=== PATIENT | female | born 1955 | race American Indian/Alaskan Native ===

== ENCOUNTER 2018-12-17 06:52 | Inpatient (IN) | payer MEDICAID, OTHER ==
[2018-12-17] MEDS ORDERED: MORPHINE IV ONE (07:31)
[2018-12-17] MEDS ORDERED: ZOFRAN IV ONE (07:31)
--- NOTE | 2018-12-17 07:33 | Emergency Department Report ---
HPI - General Chief Complaint: Extremity Injury, Lower Time Seen by Provider: 12/17/18 07:27 - HPI HPI: 63-year-old -[place]ish female presents to the emergency department via EMS from home with a complaint of left hip pain with concern for a fracture versus a dislocation. The patient says that she had a ground-level fall this morning when her leg just "gave out on me." She denies hitting her head or any loss of consciousness. She was given some fentanyl in route with EMS with only temporary relief. She has a past medical history of hypertension and arthritis. She says that she went to the [facility] yesterday for some chronic arthr itis joint pain. She does not use any type of walker, cane, or assistance for ambulation. ED Past Medical Hx - Past Medical History Previous Medical History?: Yes Hx Hypertension: Yes - Surgical History Past Surgical History?: No - Social History Smoking Status: Never Smoker Substance Use Type: None - Medications Home Medications: Home Medications Medication Instructions Recorded Confirmed Last Taken Type No Known Home Medications [No 12/17/18 12/17/18 Unknown History Reported Home Medications] ED Review of Systems ROS: Stated complaint: DISLOCATED HIP Other details as noted in HPI Comment: All other systems reviewed and negative Constitutional: denies: chills, fever Eyes: denies: eye pain, vision change ENT: denies: ear pain, throat pain Respiratory: denies: cough, shortness of breath Cardiovascular: denies: chest pain, palpitations Gastrointestinal: denies: abdominal pain, vomiting Genitourinary: denies: dysuria, discharge Musculoskeletal: arthralgia. denies: back pain Skin: denies: rash, lesions Neurological: denies: headache, weakness Physical Exam - Physical Exam Vital Signs: Vital Signs 12/17/18 07:11 Temperature 98.5 F Pulse Rate 124 H Respiratory 18 Rate Blood Pressure 162/106 O2 Sat by Pulse 100 Oximetry Physical Exam: GENERAL: The patient is well-developed well-nourished. HEENT: Normocephalic. Atraumatic. Patient has moist mucous membranes. EYES: Extraocular motions are intact. NECK: Supple. Trachea is midline. CHEST/LUNGS: Clear to auscultation. There is no respiratory distress noted. HEART/CARDIOVASCULAR: Regular. There is mild to moderate tachycardia. There is no obvious murmur. ABDOMEN: Abdomen is soft, nontender. Patient has normal bowel sounds. There is no abdominal distention. SKIN: Skin is warm and dry. NEURO: The patient is awake, alert, and oriented. The patient is cooperative. The patient has no focal neurologic deficits. The patient has normal speech. MUSCULOSKELETAL: There is tenderness to the bilateral hips. Both lower extremities are internally rotated. There is decreased range of motion of the bilateral lower extremities secondary to pain. ED Course Vital Signs 12/17/18 07:11 Temperature 98.5 F Pulse Rate 124 H Respiratory 18 Rate Blood Pressure 162/106 O2 Sat by Pulse 100 Oximetry - Consultations Consultation #1: 12/17/18 13:05 I spoke with the orthopedist director of early childhood education, Dr. Bautista, who is aware of the consult and will take the patient to the operating room tomorrow for fixation. ED Medical Decision Making - Lab Data Result diagrams: 12/17/18 08:19 12/17/18 08:19 - Radiology Data Radiology results: image reviewed interpreted by me: X-ray of the pelvis with bilateral hips shows a right intertrochanteric fracture and a left subtrochanteric fracture. - Medical Decision Making Patient presents after having a ground-level fall, mostly with the complaint of left hip pain. On examination she appears to have bilateral hip pain and difficulty moving the bilateral lower extremities secondary to pain. X-ray shows bilateral hip fractures. Orthopedist is aware of the consultation and will take the patient for fixation tomorrow. Some preop labs were obtained that show significant anemia and hypokalemia. The patient has been accepted for admission by the hospitalist service. - Differential Diagnosis hip fracture, dislocation, contusion Critical Care Time: No Critical care attestation.: If time is entered above; I have spent that time in minutes in the direct care of this critically ill patient, excluding procedure time. ED Disposition Clinical Impression: Anemia, Hypokalemia Closed bilateral fractures of hip Qualifiers: Encounter type: initial encounter Qualified Code(s): S72.001A - Fracture of unspecified part of neck of right femur, initial encounter for closed fracture Intertrochanteric fracture of right femur Qualifiers: Encounter type: initial encounter Fracture type: closed Fracture alignment: displaced Qualified Code(s): S72.141A - Displaced intertrochanteric fracture of right femur, initial encounter for closed fracture Closed left subtrochanteric femur fracture Qualifiers: Encounter type: initial encounter Fracture alignment: displaced Qualified Code(s): S72.22XA - Displaced subtrochanteric fracture of left femur, initial encounter for closed fracture Disposition: [id number] OP ADMIT IP TO THIS HOSP Is pt being admited?: Yes Condition: Fair Time of Disposition: 08:23
[2018-12-17] MEDS ORDERED: NACL 0.9% 1000 ML 1,000 ML IV ONE (08:16)
[2018-12-17] MEDS ORDERED: DILAUDID IV ONE (08:28)
--- NOTE | 2018-12-17 08:35 | XRay Report ---
LEFT HIP, 2 views: History: Fall, hip fracture versus dislocation No comparison. Bilateral proximal femur fractures are identified. On the left side, the fracture is just below the trochanters. There is severe lateral angulation measuring up to 76 degrees. I question if there is an underlying lytic lesion in the proximal left femur at the fracture site making this a pathologic fracture. On the right side, the fracture appears to involve the lesser trochanter. There is 2.5 cm lateral displacement of the distal right femur at the fracture site. The bilateral femoral heads are well-seated within their respective acetabula. No pelvic fracture is visualized. IMPRESSION: Bilateral proximal femur fractures as described.
[2018-12-17 08:41] LABS: Basophils % (Auto) 0.2 % (0.0-1.8); Eosinophils % (Auto) 0.1 % (0.0-4.3); Hematocrit 23.1 % (30.3-42.9); Hemoglobin 7.2 gm/dl (10.1-14.3); Lymphocytes # (Auto) 0.8 K/mm3 (1.2-5.4); Lymphocytes % (Auto) 5.6 % (13.4-35.0); Mean Corpuscular HGB Conc 31 % (30-34); Mean Corpuscular Volume 66 fl (79-97); Monocytes % (Auto) 6.7 % (0.0-7.3); Platelet Count 356 K/mm3 (140-440); Red Blood Count 3.49 M/mm3 (3.65-5.03); Red Cell Distribution Width 21.4 % (13.2-15.2)
[2018-12-17 08:51] LABS: Partial Thromboplastin Time 28.6 Sec. (24.2-36.6)
[2018-12-17 09:00] LABS: BUN/Creatinine Ratio 23; Blood Urea Nitrogen 7 mg/dL (7-17); Calcium 8.5 mg/dL (8.4-10.2); Hemolysis Index 0
[2018-12-17] MEDS ORDERED: K-DUR PO ONE (09:26)
[2018-12-17] MEDS ORDERED: POTASSIUM CHLORIDE FEEDTUBE ONE (10:00)
[2018-12-17] MEDS: LOPRESSOR PO SCH ×2 (10:15→22:50)
[2018-12-17] MEDS: KCL 10MEQ/100ML 10 MEQ/100 ML BAG IV SCH ×3 (10:26→17:41)
[2018-12-17 10:46] LABS: Iron 12 ug/dL (37-170); Total Iron Binding Capacity 223 mcg/dL (250-450)
[2018-12-17] MEDS ORDERED: NACL 0.9% 500 ML 500 ML IV SCH (11:48)
[2018-12-17] MEDS ORDERED: ZOFRAN IV PRN (12:10)
[2018-12-17] MEDS ORDERED: PROVENTIL IH PRN (12:10)
[2018-12-17] MEDS ORDERED: SODIUM CHLORIDE FLUSH SYRINGE 10 ML IV PRN (12:10)
--- NOTE | 2018-12-17 12:10 | History and Physical Report ---
History of Present Illness Date of examination: 12/17/18 Date of admission: 12/17/18 09:54 Chief complaint: Fall History of present illness: Patient is 63 yo with history of hypertension, anemia, arthritis. She presented because of hip pain after fall. Patient says she was walking on level floor, slipped and fell and now c/o hip pain. She stated her legs gave out. X ray shows bilateral femur fractures. She denies chest pain or shortness of breath or dizziness. Will admit to Surgical floor. Past History Past Medical History: anemia, hypertension Past Surgical History: No surgical history Social history: lives with family, full code. denies: smoking, alcohol abuse Family history: diabetes Medications and Allergies Allergies Allergy/AdvReac Type Severity Reaction Status Date / Time No Known Allergies Allergy Unverified 12/17/18 07:15 Home Medications Medication Instructions Recorded Confirmed Last Taken Type No Known Home Medications [No 12/17/18 12/17/18 Unknown History Reported Home Medications] Active Meds: Active Medications Potassium Chloride (Kcl 10meq/100ml) 10 meq in 100 mls @ 100 mls/hr IV Q1H DANIELLE Stop: 12/17/18 12:59 Last Admin: 12/17/18 10:26 Dose: 100 mls/hr Documented by: Sodium Chloride (Nacl 0.9% 500 Ml) 500 mls @ 0 mls/hr IV ONCE DANIELLE Stop: 12/17/18 23:00 Metoprolol Tartrate (Lopressor) 25 mg PO BID DANIELLE Last Admin: 12/17/18 10:15 Dose: 25 mg Documented by: Exam - Physical Exam Narrative exam: Gen: Not in acute distress, malnourished HEENT: Normocephalic, atraumatic Neck;supple, no JVD Heart: S1 and S2 reg, no murmurs, rubs or gallop Lungs: Clear, no crackles Abd: soft, non tender, non distended, normal BS Ext: Tender both hips, no cyanosis, Neuro: AAO x 3, no focal signs, moves all ext Psych:Normal mood - Constitutional Vitals: Temp Pulse Resp BP Pulse Ox 98.5 F 137 H 15 150/99 96 12/17/18 07:11 12/17/18 12:04 12/17/18 11:00 12/17/18 12:04 12/17/18 12:04 Results - Labs CBC & Chem 7: 12/17/18 08:19 12/17/18 08:19 Labs: Abnormal lab results 12/17/18 12/17/18 12/17/18 Range/Units 08:19 08:19 09:58 WBC 14.8 H (4.5-11.0) K/mm3 RBC 3.49 L (3.65-5.03) M/mm3 Hgb 7.2 L (10.1-14.3) gm/dl Hct 23.1 L (30.3-42.9) % MCV 66 L (79-97) fl MCH 21 L (28-32) pg RDW 21.4 H (13.2-15.2) % Lymph % (Auto) 5.6 L (13.4-35.0) % Lymph # 0.8 L (1.2-5.4) K/mm3 [facility] # 1.0 H (0.0-0.8) K/mm3 Seg Neutrophils % 87.4 H (40.0-70.0) % Seg Neutrophils # 12.9 H (1.8-7.7) K/mm3 Potassium 2.5 L* (3.6-5.0) mmol/L Creatinine 0.3 L (0.7-1.2) mg/dL Glucose 105 H (65-100) mg/dL Iron 12 L (37-170) ug/dL TIBC 223 L (250-450) mcg/dL Assessment and Plan Bilateral femoral neck fractures Admit to surgical Floor Consult Orthopedic surgeon for surgery Hypertension Monitor BP Chronic osteoarthritis Hypokalemia Replace and recheck in am Anemia. She mentions chronic anemia Obtain Fe, TIBC,Ferritin levels Transfuse 1 unit PRBC Full code status.
[2018-12-17] MEDS ORDERED: MORPHINE IV PRN (13:18)
[2018-12-17] MEDS: NORVASC PO SCH (14:55)
--- NOTE | 2018-12-17 22:47 | Consultation ---
History of Present Illness - [facility] Consult date: 12/17/18 Consult reason: fracture History of present illness: 63 y/o female with c/o bilateral hip pain, states she only fell once but began having pain in left hip a few days prior to fall...Seen in the ED at [facility] where xrays taken show pathologic fx left hip and displaced right intertroch fracture... Past History Past Medical History: anemia, hypertension Past Surgical History: No surgical history Social history: lives with family, full code. denies: smoking, alcohol abuse Family history: diabetes Medications and Allergies Allergies Allergy/AdvReac Type Severity Reaction Status Date / Time No Known Allergies Allergy Unverified 12/17/18 07:15 Home Medications Medication Instructions Recorded Confirmed Last Taken Type No Known Home Medications [No 12/17/18 12/17/18 Unknown History Reported Home Medications] Active Meds: Active Medications Acetaminophen (Tylenol) 650 mg PO Q4H PRN PRN Reason: Pain MILD(1-3)/Fever >100.5/WHITAKER Albuterol (Proventil) 2.5 mg IH Q4HRT PRN PRN Reason: Shortness Of Breath Amlodipine Besylate (Norvasc) 5 mg PO QDAY [facility] Last Admin: 12/17/18 14:55 Dose: 5 mg Documented by: Sodium Chloride (Nacl 0.9% 500 Ml) 500 mls @ 0 mls/hr IV ONCE [facility] Stop: 12/17/18 23:00 Last Admin: 12/17/18 12:44 Dose: 40 mls/hr Documented by: Metoprolol Tartrate (Lopressor) 25 mg PO BID [facility] Last Admin: 12/17/18 10:15 Dose: 25 mg Documented by: Morphine Sulfate (Morphine) 2 mg IV Q4H PRN PRN Reason: Pain, Moderate (4-6) Morphine Sulfate (Morphine) 4 mg IV Q4H PRN PRN Reason: Pain , Severe (7-10) Last Admin: 12/17/18 14:55 Dose: 4 mg Documented by: Ondansetron HCl (Zofran) 4 mg IV Q8H PRN PRN Reason: Nausea And Vomiting Sodium Chloride (Sodium Chloride Flush Syringe 10 Ml) 10 ml IV BID [facility] Sodium Chloride (Sodium Chloride Flush Syringe 10 Ml) 10 ml IV PRN PRN PRN Reason: LINE FLUSH Physical Examination - Physical exam Narrative exam: Bilateral LE's - +deformity with shortening, skin intact, compartments soft, distal n/v intact Eyes: PERRL ENT: Positive: clear oral mucosa Respiratory effort: normal Respiratory: bilateral: CTA Rhythm: regular Heart Sounds: Positive: S1 & S2 General gastrointestinal: Positive: soft, non-tender, non-distended, normal bowel sounds Integumentary: clear, warm, dry Neurologic: Positive: CNII-XII intact, moves all extremities, gait normal. Negative: focal deficits Assessment and Plan Bilateral intertrochanteric hip fractures with a pathologic fracture involving the left proximal femur Recommendations patient patient will require operative fixation of fractures utilizing intramedullary rods
[2018-12-18] MEDS: TYLENOL PO PRN (01:00)
[2018-12-18] MEDS: MORPHINE IV PRN (01:01)
[2018-12-18] MEDS: SODIUM CHLORIDE FLUSH SYRINGE 10 ML IV SCH ×3 (01:04→21:41)
[2018-12-18] MEDS ORDERED: MARCAINE 0.5% INFILTRATI ONE (07:38)
[2018-12-18] MEDS ORDERED: NACL P/F VIAL (10 ML) 10 ML ONE (07:38)
[2018-12-18] MEDS ORDERED: TORADOL ONE (07:38)
[2018-12-18] MEDS ORDERED: MORPHINE ONE (07:38)
[2018-12-18] MEDS ORDERED: NACL 0.9% 0 ML ONE (08:25)
[2018-12-18] MEDS ORDERED: NACL 0.9% 50 ML ONE (08:25)
[2018-12-18 08:27] LABS: Basophils % (Auto) 0.3 % (0.0-1.8); Eosinophils % (Auto) 0.1 % (0.0-4.3); Hematocrit 29.1 % (30.3-42.9); Hemoglobin 9.3 gm/dl (10.1-14.3); Lymphocytes # (Auto) 1.9 K/mm3 (1.2-5.4); Lymphocytes % (Auto) 10.7 % (13.4-35.0); Mean Corpuscular HGB Conc 32 % (30-34); Mean Corpuscular Volume 72 fl (79-97); Monocytes # (Auto) 1.7 K/mm3 (0.0-0.8); Monocytes % (Auto) 9.6 % (0.0-7.3); Platelet Count 382 K/mm3 (140-440); Red Blood Count 4.07 M/mm3 (3.65-5.03)
[2018-12-18 08:47] LABS: BUN/Creatinine Ratio 25; Blood Urea Nitrogen 10 mg/dL (7-17); Calcium 7.9 mg/dL (8.4-10.2); Hemolysis Index 19
[2018-12-18] MEDS ORDERED: PEPCID IV ONE (09:32)
--- NOTE | 2018-12-18 09:33 | Anesthesia Day of Surgery ---
Anesthesia Day of Surgery - Day of Surgery Patient Examined: Yes Patient H&P Reviewed: Yes Patient is NPO: Yes
--- NOTE | 2018-12-18 09:33 | Anesthesia Consultation ---
Anesthesia Consult and Med Hx Date of service: 12/18/18 - Airway Anesthetic Teeth Evaluation: Good ROM Head & Neck: Adequate Mental/Hyoid Distance: Adequate Mallampati Class: Class II Intubation Access Assessment: Good - Pulmonary Exam CTA: Yes - Cardiac Exam Cardiac Exam: No Murmur - Pre-Operative Health Status ASA Pre-Surgery Classification: ASA2 Proposed Anesthetic Plan: Epidural - Cardiovascular System Hx Hypertension: Yes
[2018-12-18] MEDS: LACTATED RINGERS 1,000 ML IV SCH ×2 (09:44→20:38)
[2018-12-18] MEDS ORDERED: ANCEF/STERILE WATER 2 GM/20 ML 2 GM/20 ML SYRINGE IV ONE (09:53)
--- NOTE | 2018-12-18 09:53 | XRay Report ---
METASTATIC BONE SURVEY History: Pathologic fracture of left femur Findings: Correlation is made with the left hip films dated 12/17/18. Multiple additional views of the axial skeleton and proximal appendicular skeleton were obtained. No calvarial lesions are identified. There is moderate scoliosis and degenerative changes throughout the spine but no suspicious bony lesions are appreciated. No rib lesions, humeral lesions or distal femoral lesions are identified. Fractures of the bilateral proximal femurs are again identified. Questionable lytic or permeative lesion in the proximal left femur is again noted. I suppose this could also represent demineralization is this fracture were subacute to chronic in nature. Please correlate with the patient's history. Impression: No additional suspicious bony lesions are identified throughout the axial and proximal appendicular skeleton. Questionable lytic or permeative lesion in the proximal left femur versus demineralization.
[2018-12-18] MEDS ORDERED: SUBLIMAZE IV SCH (11:00)
[2018-12-18] MEDS ORDERED: PEPCID IV NR (11:00)
[2018-12-18] MEDS ORDERED: ANCEF/STERILE WATER 2 GM/20 ML IV NR (11:00)
[2018-12-18] MEDS ORDERED: ASTRAMORPH PF 10MG/10ML ONE (11:42)
[2018-12-18] MEDS ORDERED: METHYLENE BLUE ONE (11:59)
[2018-12-18] MEDS ORDERED: WATER FOR IRRIG STERILE IR ONE (13:20)
[2018-12-18] MEDS ORDERED: NACL 0.9% IR ONE (13:20)
[2018-12-18] MEDS ORDERED: DIPRIVAN 10 MG/ML IV ONE ×2 (13:41)
[2018-12-18] MEDS ORDERED: VERSED ONE (13:59)
[2018-12-18] MEDS ORDERED: NACL 0.9% 100 ML ONE (14:01)
[2018-12-18] MEDS ORDERED: NEO SYNEPHRINE ONE (14:01)
[2018-12-18] MEDS ORDERED: NACL 0.9% 1000 ML 1,000 ML ONE (14:11)
[2018-12-18] MEDS ORDERED: NEO SYNEPHRINE/NS Syringe(OR USE) IV ONE (14:26)
[2018-12-18] MEDS: LOPRESSOR PO SCH ×3 (15:04→21:39)
[2018-12-18] MEDS: NORVASC PO SCH (15:04)
[2018-12-18] MEDS ORDERED: SUBLIMAZE IV PRN (15:21)
--- NOTE | 2018-12-18 15:41 | Procedure Note ---
Date of procedure: 12/18/18 Pre-op diagnosis: displaced bilateral intertrochanteric hip fractures Post-op diagnosis: same Procedure: Closed reduction insertion of intramedullary nail bilateral hip and femorii Procedure The patient was brought to the OR on the hospital bed following induction of spinal anesthesia the patient was transferred to the [place] table both lower extremities were placed in longitudinal traction care was taken to protect bony areas the right hip was prepped and draped in the usual sterile fashion a timeout procedure was done to identify the patient and the correct operative sites.Following closed reduction and manipulation of the fracture fragments a incision was placed over the superior posterior aspect of the right hip this is taken down sharply through skin and subcutaneous using blunt dissection along with Palmer elevator the soft tissues were stripped from the superior portion of the greater trochanter. Using the awl the entry point on the proximal femur was located using C-arm fluoroscopy next a threaded guidepin was inserted this was followed by subsequent reaming drilling and reaming measuring the length of the IM nail A3 20 length by 11 mm yaniv was selected The intramedullary nail was loaded onto the travograph operator and was then placed down the medullary canal again under C-arm direction a subsequent secondary stab wound was made over the proximal femur and the helical blade travograph operator was placed again care was taken to maintain the guidepin down the center of the humeral extremity femoral head on AP and lateral views a 90 mm length helical blade was selected this was inserted again under C-arm direction the fracture appeared stable implants were in good position following this the incisions were irrigated and were closed and a standard routine fashion following insertion of the IM nail on the right hip the drapes were removed the left hip was then prepped and draped at this point again using C-arm fluoroscopy the fracture fragments were reduced into a more anatomic position stab wounds were made over the posterior superior portion portion of the left hip this in stab wound was then taken down through skin and subcutaneous Combination of blunt and Palmer elevators were used to gain entry into the proximal portal again a guidewire was inserted through the proximal proximal fragment into the distal and on down towards the distal portion of the intramedullary canal measuring the length a again and #3 20 x 11 mm yaniv was selected this was assembled and inserted into the left femoral shaft using the antegrade technique care was taken to obtain some of the ring digit particle debris and was this was sent to pathology for identification of a possible metastatic lesion in this area again following placement of the IM nail and the helical blade which measured again 90 90 mm the fracture site was visualized on the C-arm and again appeared to be in a anatomic position routine closure of the wound was performed the patient tolerated both procedures there were no complications she was taken to postanesthesia recovery in a stable condition Anesthesia: spinal Surgeon: EARL NIELSEN Assisted Living Manager: MAYURI JERONIMO Estimated blood loss: other (300cc) Pathology: list (bony fragments from reaming) Specimen disposition: to lab Condition: stable Disposition: PACU
[2018-12-18] MEDS ORDERED: ANCEF/NS 1 GM/50 ML 1 GM/50 ML BAG IV SCH (16:00)
[2018-12-18] MEDS ORDERED: SODIUM CHLORIDE FLUSH SYRINGE 10 ML IV NR (16:00)
--- NOTE | 2018-12-18 16:29 | Progress Note ---
Assessment and Plan Assessment and plan: Bilateral femoral neck fractures Admitted to surgical Floor For surgery today Hypertension Monitor BP Chronic osteoarthritis Hypokalemia Replaced Anemia. She mentions chronic anemia Obtain Fe, TIBC,Ferritin levels Transfused 1 unit PRBC Full code status. History Interval history: Pain on hips Bilateral hip fractures post fall Hospitalist Physical - Physical exam Narrative exam: Gen: Not in acute distress, malnourished HEENT: Normocephalic, atraumatic Neck;supple, no JVD Heart: S1 and S2 reg, no murmurs, rubs or gallop Lungs: Clear, no crackles Abd: soft, non tender, non distended, normal BS Ext: Tender both hips, no cyanosis, Neuro: AAO x 3, no focal signs, moves all ext Psych:Normal mood - Constitutional Vitals: Temp Pulse Resp BP Pulse Ox 98.9 F 122 H 18 127/99 98 12/18/18 09:10 12/18/18 09:10 12/18/18 11:02 12/18/18 09:10 12/18/18 09:10 Results - Labs CBC & Chem 7: 12/19/18 04:27 12/19/18 04:27 Labs: Laboratory Last Values WBC 17.5 K/mm3 (4.5-11.0) H 12/18/18 08:14 RBC 4.07 M/mm3 (3.65-5.03) 12/18/18 08:14 Hgb 9.3 gm/dl (10.1-14.3) L 12/18/18 08:14 Hct 29.1 % (30.3-42.9) L D 12/18/18 08:14 MCV 72 fl (79-97) L 12/18/18 08:14 MCH 23 pg (28-32) L 12/18/18 08:14 MCHC 32 % (30-34) 12/18/18 08:14 RDW 24.0 % (13.2-15.2) H 12/18/18 08:14 Plt Count 382 K/mm3 (140-440) 12/18/18 08:14 Lymph % (Auto) 10.7 % (13.4-35.0) L 12/18/18 08:14 [place] % (Auto) 9.6 % (0.0-7.3) H 12/18/18 08:14 Eos % (Auto) 0.1 % (0.0-4.3) 12/18/18 08:14 Baso % (Auto) 0.3 % (0.0-1.8) 12/18/18 08:14 Lymph # 1.9 K/mm3 (1.2-5.4) 12/18/18 08:14 [place] # 1.7 K/mm3 (0.0-0.8) H 12/18/18 08:14 Eos # 0.0 K/mm3 (0.0-0.4) 12/18/18 08:14 Baso # 0.0 K/mm3 (0.0-0.1) 12/18/18 08:14 Seg Neutrophils % 79.3 % (40.0-70.0) H 12/18/18 08:14 Seg Neutrophils # 13.9 K/mm3 (1.8-7.7) H 12/18/18 08:14 PT 13.8 Sec. (12.2-14.9) 12/17/18 08:19 INR 1.00 (0.87-1.13) 12/17/18 08:19 APTT 28.6 Sec. (24.2-36.6) 12/17/18 08:19 Sodium 138 mmol/L (137-145) 12/18/18 08:14 Potassium 3.7 mmol/L (3.6-5.0) D 12/18/18 08:14 Chloride 102.1 mmol/L (98-107) 12/18/18 08:14 Carbon Dioxide 22 mmol/L (22-30) 12/18/18 08:14 Anion Gap 18 mmol/L 12/18/18 08:14 BUN 10 mg/dL (7-17) 12/18/18 08:14 Creatinine 0.4 mg/dL (0.7-1.2) L 12/18/18 08:14 Estimated GFR > 60 ml/min 12/18/18 08:14 BUN/Creatinine Ratio 25 % 12/18/18 08:14 Glucose 99 mg/dL (65-100) 12/18/18 08:14 Calcium 7.9 mg/dL (8.4-10.2) L 12/18/18 08:14 Iron 12 ug/dL (37-170) L 12/17/18 09:58 TIBC 223 mcg/dL (250-450) L 12/17/18 09:58 Ferritin 120.8 ng/mL (13.0-400.0) 12/17/18 09:58 Vitamin B12 724.6 pg/mL (211-911) 12/17/18 09:58 Blood Type A POSITIVE 12/17/18 12:28 Antibody Screen Negative 12/17/18 12:28 Crossmatch See Detail 12/17/18 12:28 Active Medications - Current Medications Current Medications: Generic Name Dose Route Start Last Admin Trade Name Freq PRN Reason Stop Dose Admin Acetaminophen 650 mg 12/17/18 12:10 12/18/18 01:00 Tylenol PO 650 mg Q4H PRN Administration Pain MILD(1-3)/Fever >100.5/WHITAKER Acetaminophen/Hydrocodone Bitart 1 each 12/18/18 15:33 [place] 5/325 PO Q6H PRN Pain, Moderate (4-6) Albuterol 2.5 mg 12/17/18 12:10 Proventil IH Q4HRT PRN Shortness Of Breath Amlodipine Besylate 5 mg 12/17/18 14:00 12/18/18 15:04 Norvasc PO Not Given QDAY [facility] Enoxaparin Sodium 40 mg 12/19/18 10:00 Lovenox SUB-Q QDAY [facility] Fentanyl 50 mcg 12/18/18 15:21 Sublimaze IV Q5MIN PRN Pain , Severe (7-10) Lactated Ringer's 1,000 mls @ 100 mls/hr 12/18/18 10:00 12/18/18 09:44 Lactated Ringers IV 100 mls/hr DIRECT DANIELLE Administration Cefazolin Sodium 1 gm in 50 mls @ 100 mls/hr 12/18/18 16:00 Ancef/Ns 1 Gm/50 Ml IV 12/19/18 00:29 Q8H [facility] Metoprolol Tartrate 25 mg 12/17/18 10:00 12/18/18 15:04 Lopressor PO Not Given BID DANIELLE Morphine Sulfate 2 mg 12/17/18 12:10 12/18/18 01:01 Morphine IV 2 mg Q4H PRN Administration Pain, Moderate (4-6) Morphine Sulfate 4 mg 12/17/18 13:18 12/17/18 14:55 Morphine IV 4 mg Q4H PRN Administration Pain , Severe (7-10) Morphine Sulfate 4 mg 12/18/18 15:33 Morphine IV Q4H PRN Pain , Severe (7-10) Ondansetron HCl 4 mg 12/17/18 12:10 Zofran IV Q8H PRN Nausea And Vomiting Sodium Chloride 10 ml 12/17/18 22:00 12/18/18 15:04 Sodium Chloride Flush Syringe 10 Ml IV Not Given BID DANIELLE Sodium Chloride 10 ml 12/17/18 12:10 Sodium Chloride Flush Syringe 10 Ml IV PRN PRN LINE FLUSH Sodium Chloride 10 ml 12/18/18 16:00 Sodium Chloride Flush Syringe 10 Ml IV 12/19/18 15:59 PRN NR Nutrition/Malnutrition Assess - Dietary Evaluation Nutrition/Malnutrition Findings: Nutrition Notes Start: 12/18/18 11:04 Freq: Status: Active Protocol: Document 12/18/18 11:04 EB (Rec: 12/18/18 11:19 [id number]) Co-Sign 12/18/18 11:04 LP Nutrition Notes Need for Assessment generated from: Low BMI Initial or Follow up Assessment Current Diagnosis Hypertension Other Pertinent Diagnosis Bilateral femur Fx, Anemia, arthritis Current Diet NPO Labs/Tests Reviewed Pertinent Medications Reviewed Height 5 ft 4 in Weight 43.998 kg Usual Body Weight 40.823 kg Anna Body Weight (kg) 54.54 BMI 16.6 Intake Prior to Admission Poor Weight Status Underweight Subjective/Other Information Screened for Low BMI. Pt in OR at time of visit, but pt daughter in room and answered questions. Per daughter, pt has only been drinking Ensure Enlive SENIOR ANALYSIS SPECIALIST due to decreased appetite associated with leg pain. Pt was able to eat about half her dinner last night, but nothing this am due to NPO status for procedure today. Pt daughter reports she has always been a smaller woman ( UBW: 90lbs), but understands pt should attempt to increase intake. Daughter would like Ensure enlive delivered to pt while she is in hospital. Percent of energy/protein needs met: 0%/0% Burn Absent Trauma Absent Current % PO Negligible Minimum of two criteria No #1 Nutrition Diagnosis Inadequate oral intake Etiology decreased ability to consume sufficient energy As Evidenced by Signs and Symptoms consumption of only Ensure Enlive SENIOR ANALYSIS SPECIALIST due to chronic leg pain leading to decreased appetite and NPO status now for procedure Is patient on ventilator? No Is Patient Ambulatory and/or Out of Bed No REE-([facility]-confined to bed) 1175.592 Kcal/Kg value to use for calculation 35 Approximate Energy Requirements Using 1540 kcal/Kg Calculation Used for Recommendations Kcal/kg Additional Notes PRO: 1-1.2 g/kg ( 44-53 g/day) Fluid: 1 mL/kcal Nutrition Intervention Change Diet Order: advance diet when medically feasible Add Supplement/Snack (indicate name/kcal Ensure Enlive BID /protein ) Provides kCal: 700 Provides Protein (gm) 40 Teaching Recipient Legal Guardian Goal #1 diet advancement Goal #2 wt maintenance/gain Anticipated Discharge Needs: unable to determine at this time Follow-Up By: 12/19/18 Additional Comments F/u: diet advancement and PO+ ONS intakes
[2018-12-18] MEDS ORDERED: LOPRESSOR IV ONE (20:23)
[2018-12-18] MEDS: ANCEF/NS 1 GM/50 ML 1 GM/50 ML BAG IV SCH (20:38)
[2018-12-18] MEDS: NORCO 5/325 PO PRN (21:37)
[2018-12-19] MEDS: ANCEF/NS 1 GM/50 ML 1 GM/50 ML BAG IV SCH (04:14)
[2018-12-19] MEDS: LACTATED RINGERS 1,000 ML IV SCH ×2 (05:44→17:45)
[2018-12-19 05:49] LABS: Hematocrit 24.4 % (30.3-42.9); Hemoglobin 7.5 gm/dl (10.1-14.3); Mean Corpuscular HGB Conc 31 % (30-34); Mean Corpuscular Volume 72 fl (79-97); Platelet Count 298 K/mm3 (140-440); Red Blood Count 3.39 M/mm3 (3.65-5.03)
[2018-12-19 05:50] LABS: Red Cell Distribution Width 23.5 % (13.2-15.2)
[2018-12-19] MEDS ORDERED: NACL 0.9% 500 ML 500 ML IV ONE (05:57)
[2018-12-19 06:04] LABS: BUN/Creatinine Ratio 17; Blood Urea Nitrogen 19 mg/dL (7-17); Calcium 7.8 mg/dL (8.4-10.2); Hemolysis Index 0
--- NOTE | 2018-12-19 07:52 | XRay Report ---
LEFT FEMUR, ONE VIEW RIGHT FEMUR, ONE VIEW History: 2 AP fluoroscopic images were obtained of each femur during surgery. The images demonstrate internal fixation of bilateral proximal femoral fractures with intramedullary yaniv and femoral neck screw. Alignment is anatomic at both fracture sites. There is mild medial displacement of the lesser trochanter of the proximal right femur. Normal articulation at both hips. Impression: Internal fixation of bilateral femoral fractures. Please correlate with the procedural report as needed.
[2018-12-19] MEDS: LOPRESSOR PO SCH ×3 (10:02→21:06)
[2018-12-19] MEDS: LOVENOX SUB-Q SCH (10:06)
[2018-12-19] MEDS: SODIUM CHLORIDE FLUSH SYRINGE 10 ML IV SCH ×2 (10:06→21:06)
[2018-12-19] MEDS: NORVASC PO SCH (10:08)
[2018-12-19] MEDS: NORCO 5/325 PO PRN (10:12)
--- NOTE | 2018-12-19 12:41 | Progress Note ---
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 muniz Pathologic fracture with osteolytic lesions Consult Oncology to workup Hypertension Monitor BP Chronic osteoarthritis Hypokalemia Replaced Anemia. She mentions chronic anemia Obtain Fe, TIBC,Ferritin levels Transfused 1 unit PRBC Full code status. History Interval history: Mild pain both hips at surgical site Bilateral hip fractures post fall s/p surg Hospitalist Physical - Physical exam Narrative exam: Gen: Not in acute distress, malnourished HEENT: Normocephalic, atraumatic Neck;supple, no JVD Heart: S1 and S2 reg, no murmurs, rubs or gallop Lungs: Clear to auscultation,, no crackles Abd: soft, non tender, non distended, normal BS Ext: Tender both hips, hips covered wit dressing, no cyanosis, Neuro: AAO x 3, no focal signs, moves all ext Psych:Normal mood - Constitutional Vitals: Temp Pulse Resp BP Pulse Ox 98.0 F 101 H 18 125/70 98 12/19/18 11:30 12/19/18 11:30 12/19/18 11:30 12/19/18 11:30 12/19/18 11:30 Results - Labs CBC & Chem 7: 12/20/18 04:47 12/20/18 04:47 Labs: Laboratory Last Values WBC 15.1 K/mm3 (4.5-11.0) H 12/19/18 04:27 RBC 3.39 M/mm3 (3.65-5.03) L 12/19/18 04:27 Hgb 7.5 gm/dl (10.1-14.3) L 12/19/18 04:27 Hct 24.4 % (30.3-42.9) L 12/19/18 04:27 MCV 72 fl (79-97) L 12/19/18 04:27 MCH 22 pg (28-32) L 12/19/18 04:27 MCHC 31 % (30-34) 12/19/18 04:27 RDW 23.5 % (13.2-15.2) H 12/19/18 04:27 Plt Count 298 K/mm3 (140-440) 12/19/18 04:27 Lymph % (Auto) 10.7 % (13.4-35.0) L 12/18/18 08:14 [place] % (Auto) 9.6 % (0.0-7.3) H 12/18/18 08:14 Eos % (Auto) 0.1 % (0.0-4.3) 12/18/18 08:14 Baso % (Auto) 0.3 % (0.0-1.8) 12/18/18 08:14 Lymph # 1.9 K/mm3 (1.2-5.4) 12/18/18 08:14 [place] # 1.7 K/mm3 (0.0-0.8) H 12/18/18 08:14 Eos # 0.0 K/mm3 (0.0-0.4) 12/18/18 08:14 Baso # 0.0 K/mm3 (0.0-0.1) 12/18/18 08:14 Seg Neutrophils % 79.3 % (40.0-70.0) H 12/18/18 08:14 Seg Neutrophils # 13.9 K/mm3 (1.8-7.7) H 12/18/18 08:14 PT 13.8 Sec. (12.2-14.9) 12/17/18 08:19 INR 1.00 (0.87-1.13) 12/17/18 08:19 APTT 28.6 Sec. (24.2-36.6) 12/17/18 08:19 Sodium 140 mmol/L (137-145) 12/19/18 04:27 Potassium 4.5 mmol/L (3.6-5.0) D 12/19/18 04:27 Chloride 102.9 mmol/L (98-107) 12/19/18 04:27 Carbon Dioxide 24 mmol/L (22-30) 12/19/18 04:27 Anion Gap 18 mmol/L 12/19/18 04:27 BUN 19 mg/dL (7-17) H 12/19/18 04:27 Creatinine 1.1 mg/dL (0.7-1.2) D 12/19/18 04:27 Estimated GFR > 60 ml/min 12/19/18 04:27 BUN/Creatinine Ratio 17 % 12/19/18 04:27 Glucose 117 mg/dL (65-100) H 12/19/18 04:27 Calcium 7.8 mg/dL (8.4-10.2) L 12/19/18 04:27 Iron 12 ug/dL (37-170) L 12/17/18 09:58 TIBC 223 mcg/dL (250-450) L 12/17/18 09:58 Ferritin 120.8 ng/mL (13.0-400.0) 12/17/18 09:58 Vitamin B12 724.6 pg/mL (211-911) 12/17/18 09:58 Blood Type A POSITIVE 12/17/18 12:28 Antibody Screen Negative 12/17/18 12:28 Crossmatch See Detail 12/17/18 12:28 Active Medications - Current Medications Current Medications: Generic Name Dose Route Start Last Admin Trade Name Freq PRN Reason Stop Dose Admin Acetaminophen 650 mg 12/17/18 12:10 12/18/18 01:00 Tylenol PO 650 mg Q4H PRN Administration Pain MILD(1-3)/Fever >100.5/WHITAKER Acetaminophen/Hydrocodone Bitart 1 each 12/18/18 15:33 12/19/18 10:12 [place] 5/325 PO 1 each Q6H PRN Administration Pain, Moderate (4-6) Albuterol 2.5 mg 12/17/18 12:10 Proventil IH Q4HRT PRN Shortness Of Breath Amlodipine Besylate 5 mg 12/17/18 14:00 12/19/18 10:08 Norvasc PO Not Given QDAY DANIELLE Enoxaparin Sodium 40 mg 12/19/18 10:00 12/19/18 10:06 Lovenox SUB-Q 40 mg QDAY DANIELLE Administration Fentanyl 50 mcg 12/18/18 15:21 Sublimaze IV Q5MIN PRN Pain , Severe (7-10) Lactated Ringer's 1,000 mls @ 100 mls/hr 12/18/18 10:00 12/19/18 05:44 Lactated Ringers IV 100 mls/hr DIRECT DANIELLE Administration Metoprolol Tartrate 25 mg 12/17/18 10:00 12/19/18 10:02 Lopressor PO 25 mg BID DANIELLE Administration Morphine Sulfate 2 mg 12/17/18 12:10 12/18/18 01:01 Morphine IV 2 mg Q4H PRN Administration Pain, Moderate (4-6) Morphine Sulfate 4 mg 12/18/18 15:33 Morphine IV Q4H PRN Pain , Severe (7-10) Ondansetron HCl 4 mg 12/17/18 12:10 Zofran IV Q8H PRN Nausea And Vomiting Sodium Chloride 10 ml 12/17/18 22:00 12/19/18 10:06 Sodium Chloride Flush Syringe 10 Ml IV 10 ml BID DANIELLE Administration Sodium Chloride 10 ml 12/17/18 12:10 Sodium Chloride Flush Syringe 10 Ml IV PRN PRN LINE FLUSH Sodium Chloride 10 ml 12/18/18 16:00 Sodium Chloride Flush Syringe 10 Ml IV 12/19/18 15:59 PRN NR Nutrition/Malnutrition Assess - Dietary Evaluation Nutrition/Malnutrition Findings: Nutrition Notes Start: 12/18/18 11:04 Freq: Status: Active Protocol: Document 12/18/18 11:04 EB (Rec: 12/18/18 11:19 [id number]) Co-Sign 12/18/18 11:04 LP Nutrition Notes Need for Assessment generated from: Low BMI Initial or Follow up Assessment Current Diagnosis Hypertension Other Pertinent Diagnosis Bilateral femur Fx, Anemia, arthritis Current Diet NPO Labs/Tests Reviewed Pertinent Medications Reviewed Height 5 ft 4 in Weight 43.998 kg Usual Body Weight 40.823 kg [place] Body Weight (kg) 54.54 BMI 16.6 Intake Prior to Admission Poor Weight Status Underweight Subjective/Other Information Screened for Low BMI. Pt in OR at time of visit, but pt daughter in room and answered questions. Per daughter, pt has only been drinking Ensure Enlive SENIOR PARALEGAL due to decreased appetite associated with leg pain. Pt was able to eat about half her dinner last night, but nothing this am due to NPO status for procedure today. Pt daughter reports she has always been a smaller woman ( UBW: 90lbs), but understands pt should attempt to increase intake. Daughter would like Ensure enlive delivered to pt while she is in hospital. Percent of energy/protein needs met: 0%/0% Burn Absent Trauma Absent Current % PO Negligible Minimum of two criteria No #1 Nutrition Diagnosis Inadequate oral intake Etiology decreased ability to consume sufficient energy As Evidenced by Signs and Symptoms consumption of only Ensure Enlive SENIOR PARALEGAL due to chronic leg pain leading to decreased appetite and NPO status now for procedure Is patient on ventilator? No Is Patient Ambulatory and/or Out of Bed No REE-([place]-confined to bed) 1175.592 Kcal/Kg value to use for calculation 35 Approximate Energy Requirements Using 1540 kcal/Kg Calculation Used for Recommendations Kcal/kg Additional Notes PRO: 1-1.2 g/kg ( 44-53 g/day) Fluid: 1 mL/kcal Nutrition Intervention Change Diet Order: advance diet when medically feasible Add Supplement/Snack (indicate name/kcal Ensure Enlive BID /protein ) Provides kCal: 700 Provides Protein (gm) 40 Teaching Recipient Legal Guardian Goal #1 diet advancement Goal #2 wt maintenance/gain Anticipated Discharge Needs: unable to determine at this time Follow-Up By: 12/19/18 Additional Comments F/u: diet advancement and PO+ ONS intakes
--- NOTE | 2018-12-19 13:41 | Event Note ---
Date: 12/19/18 [id number]
--- NOTE | 2018-12-19 13:48 | XRay Report ---
AP CHEST: HISTORY: Hypotension AP view of the chest demonstrates a normal mediastinal and cardiac contour with clear lungs and normal bony and soft tissue structures. IMPRESSION: Unremarkable AP chest.
--- NOTE | 2018-12-19 16:12 | Progress Note ---
Assessment and Plan Status post initial medullary nails both femurs Continue observation and physical therapy Subjective Date of service: 12/19/18 Interval history: No complaints noted, patient states much less pain today than before seen by physical therapy today Objective Vital signs: Vital Signs - 12hr 12/19/18 12/19/18 12/19/18 04:47 05:43 07:27 Temperature 98.3 F 97.9 F Pulse Rate 95 H 89 Respiratory 18 18 Rate Blood Pressure 82/48 83/63 97/66 O2 Sat by Pulse 96 94 Oximetry 12/19/18 12/19/18 10:00 11:30 Temperature 98.0 F Pulse Rate 101 H Respiratory 18 18 Rate Blood Pressure 125/70 O2 Sat by Pulse 98 Oximetry Narrative Exam: Postoperative dressings intact mild to moderate bloody drainage - Labs CBC & BMP: 12/19/18 04:27 12/19/18 04:27 Labs: Abnormal lab results 12/19/18 12/19/18 Range/Units 04:27 04:27 WBC 15.1 H (4.5-11.0) K/mm3 RBC 3.39 L (3.65-5.03) M/mm3 Hgb 7.5 L (10.1-14.3) gm/dl Hct 24.4 L (30.3-42.9) % MCV 72 L (79-97) fl MCH 22 L (28-32) pg RDW 23.5 H (13.2-15.2) % BUN 19 H (7-17) mg/dL Glucose 117 H (65-100) mg/dL Calcium 7.8 L (8.4-10.2) mg/dL
[2018-12-19] MEDS ORDERED: FERRLECIT 125 MG in NACL 0.9% 100 ML IV ONE (18:00)
--- NOTE | 2018-12-19 19:41 | Cat Scan Report ---
PROCEDURE: CT PELVIS W CON TECHNIQUE: Axial helical imaging through the pelvis and thighs. HISTORY: mass left hip patient is status post ORIF for bilateral hip fractures. COMPARISONS: Bone survey dated December 17, 2018 FINDINGS: There is evidence of recent ORIF of bilateral intertrochanteric fractures with retained hardware and acute postsurgical change in the soft tissues of the hips and proximal lower extremities. The femoral heads articulate normally with the acetabulum. There is lytic and blastic change involving areas of the iliac bones bilaterally and of the sacrum wi th periosteal reaction consistent with bony metastases. On the right this involves the roof of the ac etabulum. The visualized portions of the liver is notable for heterogeneous areas within the liver which may re present metastases or ductal dilatation. Free fluid is demonstrated in the visualized portion of the right abdomen and right upper pelvis. IMPRESSION: 1. Acute postsurgical change status post ORIF of bilateral intertrochanteric fractures with retained hardware. 2. Evidence of bony metastases involving the iliac bones bilaterally and sacrum. On the right this in volves the roof of the acetabulum. 3. Possible liver metastases or ductal dilatation within the liver and free fluid in the visualized p ortions of the right abdomen and right upper pelvis. This document is electronically signed by Lorena Larkin MD., December 19 2018 07:39:25 PM ET
[2018-12-19] MEDS: TYLENOL PO PRN (20:28)
[2018-12-19] MEDS ORDERED: ceFAZolin 2 GM in NACL 0.9% 100 ML IV SCH (22:00)
--- NOTE | 2018-12-20 02:21 | Consultation ---
REFERRED BY: Trevor Godfrey MD REASON FOR CONSULTATION: Hip fracture, bilateral femur fractures and radiology mentioning possible lytic lesion. HISTORY OF PRESENT ILLNESS: I saw the patient, a 63-year-old female in the medical floor. Her sons were present in the room. The patient has been able to self-care. She has a history of hypertension, anemia, arthritis. She was walking on level floor, she slipped and fell down and had hip pain, bilateral femur fractures were found. Orthopedics team has done procedure. I have been asked to evaluate the patient as there is anemia and a possible lytic lesion. REVIEW OF SYSTEMS: At this time, no headache, no visual disturbances, no ear discharge, no chest pain, no shortness of breath at rest. No abdominal pain. Postop, has leg discomfort. No seizure or syncope. No loss of consciousness. PAST MEDICAL HISTORY: Anemia, hypertension. PAST SURGICAL HISTORY: None significant. SOCIAL HISTORY: Lives with family members. No history of tobacco or alcohol usage. FAMILY HISTORY: Diabetes. ALLERGIES: None. MEDICATIONS: At this time, includes Tylenol, amlodipine, Lovenox, metoprolol, morphine. PHYSICAL EXAMINATION: VITAL SIGNS: Temperature 98, pulse 101, respirations 18, BP 125/70. HEENT: Pallor present. No icterus. NECK: No neck lymph nodes. HEART: S1, S2. LUNGS: Clear to auscultation. ABDOMEN: Soft. EXTREMITIES: Status post bilateral hip surgery. NEUROLOGIC: Alert, awake. LABORATORY DATA: White cell count 15, hemoglobin 7.5, MCV 72, platelet 298. At admission, hemoglobin 7.2, MCV 66. PT, PTT normal. Potassium 4.5, creatinine 1.1, calcium 8.5. B12 is 724. Serum iron 12, ferritin 120. RADIOLOGY: Bone survey was done, questionable lytic lesion in the left femur versus demineralization. Chest x-ray was done, this was unremarkable. ASSESSMENT: 1. Bilateral femur fractures status post procedure. 2. Suspicious lytic lesion. The patient is anemic, this appears to be iron deficiency. Blood has been given. We are looking to supportive care. 3. Calcium is not elevated. 4. White cell count is slightly elevated. It is likely reactive. Platelet counts are normal. 5. Creatinine was 0.3 at admission. 6. History of hypertension. 7. History of arthritis. I will follow the patient during inpatient stay and then in the clinic setting. JOB# [id number] LAUREEN/AVILA
[2018-12-20] MEDS: NORCO 5/325 PO PRN ×2 (05:46→10:13)
[2018-12-20] MEDS: LACTATED RINGERS 1,000 ML IV SCH ×2 (05:49→17:25)
[2018-12-20 07:01] LABS: Alanine Aminotransferase 26 units/L (7-56); Albumin 1.7 g/dL (3.9-5); BUN/Creatinine Ratio 27; Blood Urea Nitrogen 19 mg/dL (7-17); Calcium 8.1 mg/dL (8.4-10.2); Hemolysis Index 3
[2018-12-20 07:20] LABS: Basophils % (Auto) 0.1 % (0.0-1.8); Hematocrit 24.1 % (30.3-42.9); Hemoglobin 7.3 gm/dl (10.1-14.3); Lymphocytes # (Auto) 1.2 K/mm3 (1.2-5.4); Lymphocytes % (Auto) 7.7 % (13.4-35.0); Mean Corpuscular HGB Conc 30 % (30-34); Mean Corpuscular Volume 73 fl (79-97); Monocytes # (Auto) 1.3 K/mm3 (0.0-0.8); Monocytes % (Auto) 8.3 % (0.0-7.3); Platelet Count 286 K/mm3 (140-440)
[2018-12-20 07:25] LABS: Red Cell Distribution Width 23.8 % (13.2-15.2)
[2018-12-20] MEDS: LOVENOX SUB-Q SCH (10:12)
[2018-12-20] MEDS: NORVASC PO SCH (10:13)
[2018-12-20] MEDS: SODIUM CHLORIDE FLUSH SYRINGE 10 ML IV SCH ×2 (10:15→21:29)
[2018-12-20] MEDS: LOPRESSOR PO SCH ×3 (10:15→21:29)
--- NOTE | 2018-12-20 11:29 | Progress Note ---
Assessment and Plan Assessment and plan: Bilateral femoral neck fractures s/p surgery on 12/18/18 Osteolytic lesions resembling metastatses on iliac bones, sacrum, right acetabulum Oncology consulted Pathologic fracture with osteolytic lesions Consult Oncology to workup Hypertension Monitor BP Chronic osteoarthritis Hypokalemia Replaced Anemia. Hgb 7.3. Will transfuse 1 Unit PRBC today She mentions chronic anemia Obtain Fe, TIBC,Ferritin levels Full code status. History Interval history: Mild pain both hips at surgical site Bilateral hip fractures post fall s/p surg Hospitalist Physical - Physical exam Narrative exam: Gen: Not in acute distress, malnourished HEENT: Normocephalic, atraumatic Neck;supple, no JVD Heart: S1 and S2 reg, no murmurs, rubs or gallop Lungs: Clear to auscultation,, no crackles Abd: soft, non tender, non distended, normal BS Ext: Tender both hips, hips covered wit dressing, no cyanosis, Neuro: AAO x 3, no focal signs, moves all ext Psych:Normal mood - Constitutional Vitals: Temp Pulse Resp BP Pulse Ox 98.9 F 110 H 20 106/72 97 12/20/18 09:15 12/20/18 09:15 12/20/18 09:15 12/20/18 09:15 12/20/18 08:02 Results - Labs CBC & Chem 7: 12/20/18 04:47 12/20/18 04:47 Labs: Laboratory Last Values WBC 16.0 K/mm3 (4.5-11.0) H 12/20/18 04:47 RBC 3.30 M/mm3 (3.65-5.03) L 12/20/18 04:47 Hgb 7.3 gm/dl (10.1-14.3) L 12/20/18 04:47 Hct 24.1 % (30.3-42.9) L 12/20/18 04:47 MCV 73 fl (79-97) L 12/20/18 04:47 MCH 22 pg (28-32) L 12/20/18 04:47 MCHC 30 % (30-34) 12/20/18 04:47 RDW 23.8 % (13.2-15.2) H 12/20/18 04:47 Plt Count 286 K/mm3 (140-440) 12/20/18 04:47 Lymph % (Auto) 7.7 % (13.4-35.0) L 12/20/18 04:47 [place] % (Auto) 8.3 % (0.0-7.3) H 12/20/18 04:47 Eos % (Auto) 0.0 % (0.0-4.3) 12/20/18 04:47 Baso % (Auto) 0.1 % (0.0-1.8) 12/20/18 04:47 Lymph # 1.2 K/mm3 (1.2-5.4) 12/20/18 04:47 [place] # 1.3 K/mm3 (0.0-0.8) H 12/20/18 04:47 Eos # 0.0 K/mm3 (0.0-0.4) 12/20/18 04:47 Baso # 0.0 K/mm3 (0.0-0.1) 12/20/18 04:47 Seg Neutrophils % 83.9 % (40.0-70.0) H 12/20/18 04:47 Seg Neutrophils # 13.4 K/mm3 (1.8-7.7) H 12/20/18 04:47 PT 13.8 Sec. (12.2-14.9) 12/17/18 08:19 INR 1.00 (0.87-1.13) 12/17/18 08:19 APTT 28.6 Sec. (24.2-36.6) 12/17/18 08:19 Sodium 135 mmol/L (137-145) L 12/20/18 04:47 Potassium 4.2 mmol/L (3.6-5.0) 12/20/18 04:47 Chloride 101.3 mmol/L (98-107) 12/20/18 04:47 Carbon Dioxide 21 mmol/L (22-30) L 12/20/18 04:47 Anion Gap 17 mmol/L 12/20/18 04:47 BUN 19 mg/dL (7-17) H 12/20/18 04:47 Creatinine 0.7 mg/dL (0.7-1.2) 12/20/18 04:47 Estimated GFR > 60 ml/min 12/20/18 04:47 BUN/Creatinine Ratio 27 % 12/20/18 04:47 Glucose 86 mg/dL (65-100) 12/20/18 04:47 Calcium 8.1 mg/dL (8.4-10.2) L 12/20/18 04:47 Iron 12 ug/dL (37-170) L 12/17/18 09:58 TIBC 223 mcg/dL (250-450) L 12/17/18 09:58 Ferritin 120.8 ng/mL (13.0-400.0) 12/17/18 09:58 Total Bilirubin 1.10 mg/dL (0.1-1.2) 12/20/18 04:47 AST 299 units/L (5-40) H 12/20/18 04:47 ALT 26 units/L (7-56) 12/20/18 04:47 Alkaline Phosphatase 489 units/L (35-129) H 12/20/18 04:47 Total Protein 4.7 g/dL (6.3-8.2) L D 12/20/18 04:47 Albumin 1.7 g/dL (3.9-5) L 12/20/18 04:47 Albumin/Globulin Ratio 0.6 % 12/20/18 04:47 Vitamin B12 724.6 pg/mL (211-911) 12/17/18 09:58 Folate 3.99 ng/mL (7.3-26.0) L 12/20/18 04:47 RBC Folic Acid 901 ng/mL (>280) 12/17/18 09:58 Blood Type A POSITIVE 12/17/18 12:28 Antibody Screen Negative 12/17/18 12:28 Crossmatch See Detail 12/17/18 12:28 Active Medications - Current Medications Current Medications: Generic Name Dose Route Start Last Admin Trade Name Freq PRN Reason Stop Dose Admin Acetaminophen 650 mg 12/17/18 12:10 12/19/18 20:28 Tylenol PO 650 mg Q4H PRN Administration Pain MILD(1-3)/Fever >100.5/WHITAKER Acetaminophen/Hydrocodone Bitart 1 each 12/18/18 15:33 12/20/18 10:13 [place] 5/325 PO 1 each Q6H PRN Administration Pain, Moderate (4-6) Albuterol 2.5 mg 12/17/18 12:10 Proventil IH Q4HRT PRN Shortness Of Breath Amlodipine Besylate 5 mg 12/17/18 14:00 12/20/18 10:13 Norvasc PO 5 mg QDAY DANIELLE Administration Enoxaparin Sodium 40 mg 12/19/18 10:00 12/20/18 10:12 Lovenox SUB-Q 40 mg QDAY DANIELLE Administration Lactated Ringer's 1,000 mls @ 100 mls/hr 12/18/18 10:00 12/20/18 05:49 Lactated Ringers IV 100 mls/hr DIRECT DANIELLE Administration Metoprolol Tartrate 25 mg 12/17/18 10:00 12/20/18 10:15 Lopressor PO 25 mg BID DANIELLE Administration Morphine Sulfate 2 mg 12/17/18 12:10 12/18/18 01:01 Morphine IV 2 mg Q4H PRN Administration Pain, Moderate (4-6) Morphine Sulfate 4 mg 12/18/18 15:33 Morphine IV Q4H PRN Pain , Severe (7-10) Ondansetron HCl 4 mg 12/17/18 12:10 Zofran IV Q8H PRN Nausea And Vomiting Sodium Chloride 10 ml 12/17/18 22:00 12/20/18 10:15 Sodium Chloride Flush Syringe 10 Ml IV 10 ml BID DANIELLE Administration Sodium Chloride 10 ml 12/17/18 12:10 Sodium Chloride Flush Syringe 10 Ml IV PRN PRN LINE FLUSH Nutrition/Malnutrition Assess - Dietary Evaluation Nutrition/Malnutrition Findings: Nutrition Notes Start: 12/18/18 11:04 Freq: Status: Active Protocol: Document 12/19/18 16:05 RM (Rec: 12/19/18 16:10 [email or web address]) Nutrition Notes Initial or Follow up Reassessment Current Diagnosis Hypertension Other Pertinent Diagnosis Bilateral femur Fx, Anemia, arthritis Current Diet Regular Labs/Tests Reviewed Pertinent Medications Reviewed Height 5 ft 4 in Weight 49.5 kg [place] Body Weight (kg) 54.54 BMI 18.7 Subjective/Other Information Pt stated that she ate half of her breakfast today and all of her dinner last night. Percent of energy/protein needs met: 84%/100% Burn Absent Trauma Absent #1 Nutrition Diagnosis Inadequate oral intake As Evidenced by Signs and Symptoms pt meeting 84% of calorie and 100% of protein needs Diagnosis Progress(for reassessment Resolved documentation) Is patient on ventilator? No Is Patient Ambulatory and/or Out of Bed No REE-([place]confined [facility] bed) 1241.556 Kcal/Kg value to use for calculation 35 Approximate Energy Requirements Using 1733 kcal/Kg Calculation Used for Recommendations Kcal/kg Additional Notes PRO: 1-1.2 g/kg ( 44-53 g/day) Fluid: 1 mL/kcal Nutrition Intervention Change Diet Order: Continue current Add Supplement/Snack (indicate name/kcal Ensure Enlive BID /protein ) Provides kCal: 700 Provides Protein (gm) 40 Goal #1 Continue meet at least 75% of calorie and protein needs via PO and ONS intakes Goal #2 wt maintenance/gain Anticipated Discharge Needs: Regular diet Follow-Up By: 12/23/18 Additional Comments Follow for PO and ONS intakes
[2018-12-20] MEDS ORDERED: NACL 0.9% 500 ML 500 ML IV ONE (12:25)
[2018-12-20] MEDS: MORPHINE IV PRN (14:43)
[2018-12-20] MEDS ORDERED: NACL 0.9% 500 ML 500 ML IV NR (16:00)
--- NOTE | 2018-12-20 16:23 | Hem/Onc Progress Note ---
Assessment and Plan 1. Bilateral femur fractures status post procedure. 2. Suspicious lytic lesion. The patient is anemic, this appears to be iron deficiency. Blood has been given. We are looking to supportive care. 3. Calcium is not elevated. 4. White cell count is slightly elevated. It is likely reactive. Platelet counts are normal. 5. Creatinine was 0.3 at admission. 6. History of hypertension. 7. History of arthritis. skeletal survey - only femur lesion - Patient Problems (1) Anemia Current Visit: Yes Status: Acute Subjective Date of service: 12/20/18 Principal diagnosis: bone lesion Interval history: feeling better Objective - Constitutional Vitals: Last Vital Signs Temp 98.1 F 12/20/18 12:06 Pulse 107 H 12/20/18 12:06 Resp 18 12/20/18 12:06 BP 120/85 12/20/18 12:06 Pulse Ox 97 12/20/18 12:06 Pain Intensity (0-10): denies any pain General appearance: no acute distress Performance status: 3-limited selfcare - EENT Eyes: EOM intact ENT: clear oral mucosa Lymph node exam: negative cervical - Neck Neck: normal ROM - Respiratory Respiratory effort: Positive: normal Respiratory: bilateral: CTA - Cardiovascular Heart Sounds: Present: S1 & S2 Extremities: normal temperature - Gastrointestinal General gastrointestinal: Present: soft, non-tender Rectal Exam: deferred - Genitourinary Female genitourinary: Present: deferred - Integumentary Integumentary: warm - Neurologic Neurologic: other (s/p hip sx- moves leg) - Labs Lab Results: Laboratory Results - last 24 hr 12/17/18 12/17/18 12/20/18 09:58 12:28 04:47 WBC 16.0 H RBC 3.30 L Hgb 7.3 L Hct 24.1 L MCV 73 L MCH 22 L MCHC 30 RDW 23.8 H Plt Count 286 Lymph % (Auto) 7.7 L [place] % (Auto) 8.3 H Eos % (Auto) 0.0 Baso % (Auto) 0.1 Lymph # 1.2 [place] # 1.3 H Eos # 0.0 Baso # 0.0 Seg Neutrophils % 83.9 H Seg Neutrophils # 13.4 H Sodium Potassium Chloride Carbon Dioxide Anion Gap BUN Creatinine Estimated GFR BUN/Creatinine Ratio Glucose Calcium Total Bilirubin AST ALT Alkaline Phosphatase Total Protein Albumin Albumin/Globulin Ratio Folate RBC Folic Acid 901 Blood Type Antibody Screen Crossmatch See Detail 12/20/18 12/20/18 12/20/18 04:47 04:47 12:54 WBC RBC Hgb Hct MCV MCH MCHC RDW Plt Count Lymph % (Auto) [place] % (Auto) Eos % (Auto) Baso % (Auto) Lymph # [place] # Eos # Baso # Seg Neutrophils % Seg Neutrophils # Sodium 135 L Potassium 4.2 Chloride 101.3 Carbon Dioxide 21 L Anion Gap 17 BUN 19 H Creatinine 0.7 Estimated GFR > 60 BUN/Creatinine Ratio 27 Glucose 86 Calcium 8.1 L Total Bilirubin 1.10 AST 299 H ALT 26 Alkaline Phosphatase 489 H Total Protein 4.7 L D Albumin 1.7 L Albumin/Globulin Ratio 0.6 Folate 3.99 L RBC Folic Acid Blood Type A POSITIVE Antibody Screen Negative Crossmatch See Detail Medications & Allergies - Medications Allergies/Adverse Reactions: Allergies No Known Allergies Allergy (Unverified 12/17/18 07:15) Home Medications: Home Medications Medication Instructions Recorded Confirmed Last Taken Type RX: No Known Home Medications [No 12/17/18 12/17/18 Unknown History Reported Home Medications] Active Medications: Generic Name Dose Route Start Last Admin Trade Name Freq PRN Reason Stop Dose Admin Acetaminophen 650 mg 12/17/18 12:10 12/19/18 20:28 Tylenol PO 650 mg Q4H PRN Administration Pain MILD(1-3)/Fever >100.5/WHITAKER Acetaminophen/Hydrocodone Bitart 1 each 12/18/18 15:33 12/20/18 10:13 [place] 5/325 PO 1 each Q6H PRN Administration Pain, Moderate (4-6) Albuterol 2.5 mg 12/17/18 12:10 Proventil IH Q4HRT PRN Shortness Of Breath Amlodipine Besylate 5 mg 12/17/18 14:00 12/20/18 10:13 Norvasc PO 5 mg QDAY DANIELLE Administration Enoxaparin Sodium 40 mg 12/19/18 10:00 12/20/18 10:12 Lovenox SUB-Q 40 mg QDAY DANIELLE Administration Lactated Ringer's 1,000 mls @ 100 mls/hr 12/18/18 10:00 12/20/18 05:49 Lactated Ringers IV 100 mls/hr DIRECT DANIELLE Administration Sodium Chloride 500 mls @ 0 mls/hr 12/20/18 16:00 Nacl 0.9% 500 Ml IV 12/20/18 23:59 ONCE NR As Directed Metoprolol Tartrate 25 mg 12/17/18 10:00 12/20/18 10:15 Lopressor PO 25 mg BID DANIELLE Administration Morphine Sulfate 2 mg 12/17/18 12:10 12/18/18 01:01 Morphine IV 2 mg Q4H PRN Administration Pain, Moderate (4-6) Morphine Sulfate 4 mg 12/18/18 15:33 12/20/18 14:43 Morphine IV 4 mg Q4H PRN Administration Pain , Severe (7-10) Ondansetron HCl 4 mg 12/17/18 12:10 Zofran IV Q8H PRN Nausea And Vomiting Sodium Chloride 10 ml 12/17/18 22:00 12/20/18 10:15 Sodium Chloride Flush Syringe 10 Ml IV 10 ml BID DANIELLE Administration Sodium Chloride 10 ml 12/17/18 12:10 Sodium Chloride Flush Syringe 10 Ml IV PRN PRN LINE FLUSH
[2018-12-20] MEDS: THERAGRAN Tab PO SCH (18:44)
[2018-12-20] MEDS: FOLVITE PO SCH (18:44)
[2018-12-20] MEDS: TYLENOL PO PRN (20:01)
[2018-12-20] MEDS ORDERED: ANCEF/STERILE WATER 2 GM/20 ML IV NR (21:00)
[2018-12-21 07:13] LABS: Hematocrit 29.5 % (30.3-42.9); Hemoglobin 9.2 gm/dl (10.1-14.3); Mean Corpuscular HGB Conc 31 % (30-34); Mean Corpuscular Volume 78 fl (79-97); Platelet Count 265 K/mm3 (140-440); Red Blood Count 3.81 M/mm3 (3.65-5.03); Red Cell Distribution Width 26.8 % (13.2-15.2)
[2018-12-21 07:37] LABS: BUN/Creatinine Ratio 34; Blood Urea Nitrogen 17 mg/dL (7-17); Calcium 8.3 mg/dL (8.4-10.2); Hemolysis Index 8
[2018-12-21] MEDS: NORCO 5/325 PO PRN ×2 (09:37→21:37)
[2018-12-21] MEDS: NORVASC PO SCH (09:37)
[2018-12-21] MEDS: FOLVITE PO SCH (09:37)
[2018-12-21] MEDS: LOVENOX SUB-Q SCH (09:37)
[2018-12-21] MEDS: LOPRESSOR PO SCH ×2 (09:38→21:36)
[2018-12-21] MEDS: THERAGRAN Tab PO SCH (09:38)
--- NOTE | 2018-12-21 11:09 | Progress Note ---
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 Sparrow Pathologic fracture with osteolytic lesions Consult Oncology to workup Hypertension Monitor BP Chronic osteoarthritis Hypokalemia Replaced Anemia. Hgb 9.2 post 1 Unit PRBC transfusion on 12/20 She mentions chronic anemia Full code status. History Interval history: Mild pain both hips at surgical site Bilateral hip fractures post fall s/p surg Hospitalist Physical - Physical exam Narrative exam: Gen: Not in acute distress, malnourished HEENT: Normocephalic, atraumatic Neck;supple, no JVD Heart: S1 and S2 reg, no murmurs, rubs or gallop Lungs: Clear to auscultation,, no crackles Abd: soft, non tender, non distended, normal BS Ext: Tender both hips, hips covered wit dressing, no cyanosis, Neuro: AAO x 3, no focal signs, moves all ext Psych:Normal mood - Constitutional Vitals: Temp Pulse Resp BP Pulse Ox 98.6 F 113 H 16 134/91 97 12/21/18 09:14 12/21/18 09:14 12/21/18 09:14 12/21/18 09:14 12/21/18 09:14 Results - Labs CBC & Chem 7: 12/21/18 06:20 12/21/18 06:20 Labs: Laboratory Last Values WBC 16.4 K/mm3 (4.5-11.0) H 12/21/18 06:20 RBC 3.81 M/mm3 (3.65-5.03) 12/21/18 06:20 Hgb 9.2 gm/dl (10.1-14.3) L 12/21/18 06:20 Hct 29.5 % (30.3-42.9) L 12/21/18 06:20 MCV 78 fl (79-97) L 12/21/18 06:20 MCH 24 pg (28-32) L 12/21/18 06:20 MCHC 31 % (30-34) 12/21/18 06:20 RDW 26.8 % (13.2-15.2) H 12/21/18 06:20 Plt Count 265 K/mm3 (140-440) 12/21/18 06:20 Lymph % (Auto) 7.7 % (13.4-35.0) L 12/20/18 04:47 [place] % (Auto) 8.3 % (0.0-7.3) H 12/20/18 04:47 Eos % (Auto) 0.0 % (0.0-4.3) 12/20/18 04:47 Baso % (Auto) 0.1 % (0.0-1.8) 12/20/18 04:47 Lymph # 1.2 K/mm3 (1.2-5.4) 12/20/18 04:47 [place] # 1.3 K/mm3 (0.0-0.8) H 12/20/18 04:47 Eos # 0.0 K/mm3 (0.0-0.4) 12/20/18 04:47 Baso # 0.0 K/mm3 (0.0-0.1) 12/20/18 04:47 Seg Neutrophils % 83.9 % (40.0-70.0) H 12/20/18 04:47 Seg Neutrophils # 13.4 K/mm3 (1.8-7.7) H 12/20/18 04:47 PT 13.8 Sec. (12.2-14.9) 12/17/18 08:19 INR 1.00 (0.87-1.13) 12/17/18 08:19 APTT 28.6 Sec. (24.2-36.6) 12/17/18 08:19 Sodium 139 mmol/L (137-145) 12/21/18 06:20 Potassium 4.1 mmol/L (3.6-5.0) 12/21/18 06:20 Chloride 104.8 mmol/L (98-107) 12/21/18 06:20 Carbon Dioxide 23 mmol/L (22-30) 12/21/18 06:20 Anion Gap 15 mmol/L 12/21/18 06:20 BUN 17 mg/dL (7-17) 12/21/18 06:20 Creatinine 0.5 mg/dL (0.7-1.2) L 12/21/18 06:20 Estimated GFR > 60 ml/min 12/21/18 06:20 BUN/Creatinine Ratio 34 % 12/21/18 06:20 Glucose 74 mg/dL (65-100) 12/21/18 06:20 Calcium 8.3 mg/dL (8.4-10.2) L 12/21/18 06:20 Iron 12 ug/dL (37-170) L 12/17/18 09:58 TIBC 223 mcg/dL (250-450) L 12/17/18 09:58 Ferritin 120.8 ng/mL (13.0-400.0) 12/17/18 09:58 Total Bilirubin 1.10 mg/dL (0.1-1.2) 12/20/18 04:47 AST 299 units/L (5-40) H 12/20/18 04:47 ALT 26 units/L (7-56) 12/20/18 04:47 Alkaline Phosphatase 489 units/L (35-129) H 12/20/18 04:47 Total Protein 4.7 g/dL (6.3-8.2) L D 12/20/18 04:47 Albumin 1.7 g/dL (3.9-5) L 12/20/18 04:47 Albumin/Globulin Ratio 0.6 % 12/20/18 04:47 Vitamin B12 724.6 pg/mL (211-911) 12/17/18 09:58 Folate 3.99 ng/mL (7.3-26.0) L 12/20/18 04:47 RBC Folic Acid 901 ng/mL (>280) 12/17/18 09:58 Blood Type A POSITIVE 12/20/18 12:54 Antibody Screen Negative 12/20/18 12:54 Crossmatch See Detail 12/20/18 12:54 Active Medications - Current Medications Current Medications: Generic Name Dose Route Start Last Admin Trade Name Freq PRN Reason Stop Dose Admin Acetaminophen 650 mg 12/17/18 12:10 12/20/18 20:01 Tylenol PO 650 mg Q4H PRN Administration Pain MILD(1-3)/Fever >100.5/WHITAKER Acetaminophen/Hydrocodone Bitart 1 each 12/18/18 15:33 12/21/18 09:37 [place] 5/325 PO 1 each Q6H PRN Administration Pain, Moderate (4-6) Albuterol 2.5 mg 12/17/18 12:10 Proventil IH Q4HRT PRN Shortness Of Breath Amlodipine Besylate 5 mg 12/17/18 14:00 12/21/18 09:37 Norvasc PO 5 mg QDAY DANIELLE Administration Enoxaparin Sodium 40 mg 12/19/18 10:00 12/21/18 09:37 Lovenox SUB-Q 40 mg QDAY DANIELLE Administration Folic Acid 1 mg 12/20/18 17:00 12/21/18 09:37 Folvite PO 1 mg QDAY DANIELLE Administration Lactated Ringer's 1,000 mls @ 100 mls/hr 12/18/18 10:00 12/20/18 17:25 Lactated Ringers IV 100 mls/hr DIRECT DANIELLE Administration Metoprolol Tartrate 25 mg 12/17/18 10:00 12/21/18 09:38 Lopressor PO 25 mg BID DANIELLE Administration Morphine Sulfate 2 mg 12/17/18 12:10 12/18/18 01:01 Morphine IV 2 mg Q4H PRN Administration Pain, Moderate (4-6) Morphine Sulfate 4 mg 12/18/18 15:33 12/20/18 14:43 Morphine IV 4 mg Q4H PRN Administration Pain , Severe (7-10) Multivitamins 1 each 12/20/18 17:00 12/21/18 09:38 Theragran Tab PO 1 each QDAY DANIELLE Administration Ondansetron HCl 4 mg 12/17/18 12:10 Zofran IV Q8H PRN Nausea And Vomiting Sodium Chloride 10 ml 12/17/18 22:00 12/20/18 21:29 Sodium Chloride Flush Syringe 10 Ml IV Not Given BID DANIELLE Sodium Chloride 10 ml 12/17/18 12:10 Sodium Chloride Flush Syringe 10 Ml IV PRN PRN LINE FLUSH Nutrition/Malnutrition Assess - Dietary Evaluation Nutrition/Malnutrition Findings: Nutrition Notes Start: 12/18/18 11:04 Freq: Status: Active Protocol: Document 12/19/18 16:05 RM (Rec: 12/19/18 16:10 RM [id number]) Nutrition Notes Initial or Follow up Reassessment Current Diagnosis Hypertension Other Pertinent Diagnosis Bilateral femur Fx, Anemia, arthritis Current Diet Regular Labs/Tests Reviewed Pertinent Medications Reviewed Height 5 ft 4 in Weight 49.5 kg [place] Body Weight (kg) 54.54 BMI 18.7 Subjective/Other Information Pt stated that she ate half of her breakfast today and all of her dinner last night. Percent of energy/protein needs met: 84%/100% Burn Absent Trauma Absent #1 Nutrition Diagnosis Inadequate oral intake As Evidenced by Signs and Symptoms pt meeting 84% of calorie and 100% of protein needs Diagnosis Progress(for reassessment Resolved documentation) Is patient on ventilator? No Is Patient Ambulatory and/or Out of Bed No REE-([facility]-confined to bed) 1241.556 Kcal/Kg value to use for calculation 35 Approximate Energy Requirements Using 1733 kcal/Kg Calculation Used for Recommendations Kcal/kg Additional Notes PRO: 1-1.2 g/kg ( 44-53 g/day) Fluid: 1 mL/kcal Nutrition Intervention Change Diet Order: Continue current Add Supplement/Snack (indicate name/kcal Ensure Enlive BID /protein ) Provides kCal: 700 Provides Protein (gm) 40 Goal #1 Continue meet at least 75% of calorie and protein needs via PO and ONS intakes Goal #2 wt maintenance/gain Anticipated Discharge Needs: Regular diet Follow-Up By: 12/23/18 Additional Comments Follow for PO and ONS intakes
[2018-12-21] MEDS: MORPHINE IV PRN (11:59)
[2018-12-21] MEDS: SODIUM CHLORIDE FLUSH SYRINGE 10 ML IV SCH ×2 (12:03→21:39)
--- NOTE | 2018-12-21 16:06 | Cat Scan Report ---
PROCEDURE: CT ABDOMEN PELVIS W CON TECHNIQUE: Axial images obtained abdomen and pelvis following intravenous administration of iodinate d contrast. Sagittal and coronal reformatted images obtained HISTORY: bone lesion - h/o fracture COMPARISONS : pelvic CT December 19, 2018 FINDINGS: Lung bases demonstrate no consolidation. No suspect pulmonary nodule. Small bilateral effusions Large heterogeneous areas throughout the liver. Areas which demonstrate decreased attenuation. There is also abnormal enhancement. These areas are noted throughout both lobes. Finding compatible with me tastatic disease in the appropriate clinical setting. Lesion left lobe measures 7.9 x 4.0 cm. Contracted gallbladder. No radiopaque calculus Spleen normal size Pancreas unremarkable Generalized subcutaneous edema. Low volume ascites No free air Adrenal glands unremarkable. Kidneys demonstrate subcentimeter cysts. No hydronephrosis. No evidence of obstruction. Bladder decompressed. Barrera catheter in place. Cystic and solid mass right adnexa measuring approximately 5.5 x 5.1 cm. Atherosclerotic calcification of the aorta. Mesenteric vessels are patent. Celiac axis adenopathy. 1 cm lymph node image 44. Adjacent lymph nodes present. Retroperitoneal adenopathy. Intra-aortic caval lymph nodes noted. [place] 0.8 cm lymph node ax ial image 72. No pelvic sidewall adenopathy. No inguinal adenopathy. No free air. No bowel obstruction. Colonic stool compatible with constipation. Diverticulosis. No div erticulitis. Omental nodules noted right upper quadrant. [place] nodule measures 2 cm image 107. Additional omental nodules present. Status post rodding bilateral femurs. Chronic lytic appearance to the right ilium above the acetabulum compatible with metastatic disease. Similar focus left posterior ilium.. Lumbar vertebrae demonstrate mixed sclerotic appearance compatible with metastatic disease. No lumbar compression deformity. T12 demonstrates a more prominent lytic component. Slight superior endplate c ompression. Gas and fluid at the bilateral hips compatible with recent rodding. IMPRESSION: Multiple hepatic lesions compatible with metastatic disease Celiac axis and retroperitoneal adenopathy compatible with metastatic disease Cystic and solid mass in the pelvis suspicious for ovarian neoplasm Omental nodules right upper quadrant compatible with metastatic disease.. There are additional omenta l nodules present. Findings compatible with omental metastatic disease Skeletal system demonstrates multiple sclerotic and lytic foci compatible with bony metastatic diseas e Low volume ascites Subcutaneous edema Rodding bilateral femurs This document is electronically signed by Cyrus Ayala MD., December 21 2018 04:04:04 PM ET
--- NOTE | 2018-12-21 17:22 | Hem/Onc Progress Note ---
Assessment and Plan 1. Bilateral femur fractures status post procedure. 2. Suspicious lytic lesion. The patient is anemic, this appears to be iron deficiency. Blood has been given. We are looking to supportive care. 3. Calcium is not elevated. 4. White cell count is slightly elevated. It is likely reactive. Platelet counts are normal. 5. Creatinine was 0.3 at admission. 6. History of hypertension. 7. History of arthritis. skeletal survey - only femur lesion 12/21 Ct abdo pelvis - liver and ovary lesion d/w pt reg bx - Patient Problems (1) Anemia Current Visit: Yes Status: Acute Subjective Date of service: 12/21/18 Principal diagnosis: bone mets Interval history: bone lesion pt had CT Objective - Constitutional Vitals: Last Vital Signs Temp 98.7 F 12/21/18 13:39 Pulse 103 H 12/21/18 13:39 Resp 16 12/21/18 13:39 BP 128/85 12/21/18 13:39 Pulse Ox 98 12/21/18 13:39 Pain Intensity (0-10): 1/10 General appearance: no acute distress Performance status: 3-limited selfcare - EENT Eyes: EOM intact ENT: clear oral mucosa Lymph node exam: negative cervical - Neck Neck: normal ROM - Respiratory Respiratory effort: Positive: normal Respiratory: bilateral: CTA - Cardiovascular Heart Sounds: Present: S1 & S2 Extremities: No edema - Gastrointestinal General gastrointestinal: Present: soft Rectal Exam: deferred - Genitourinary Female genitourinary: Present: deferred - Integumentary Integumentary: warm - Musculoskeletal Musculoskeletal: other (s/p hip sx) - Labs Lab Results: Laboratory Results - last 24 hr 12/20/18 12/21/18 12/21/18 12:54 06:20 06:20 WBC 16.4 H RBC 3.81 Hgb 9.2 L Hct 29.5 L MCV 78 L MCH 24 L MCHC 31 RDW 26.8 H Plt Count 265 Sodium 139 Potassium 4.1 Chloride 104.8 Carbon Dioxide 23 Anion Gap 15 BUN 17 Creatinine 0.5 L Estimated GFR > 60 BUN/Creatinine Ratio 34 Glucose 74 Calcium 8.3 L Crossmatch See Detail Medications & Allergies - Medications Allergies/Adverse Reactions: Allergies No Known Allergies Allergy (Unverified 12/17/18 07:15) Home Medications: Home Medications Medication Instructions Recorded Confirmed Last Taken Type No Known Home Medications [No 12/17/18 12/17/18 Unknown History Reported Home Medications] Active Medications: Generic Name Dose Route Start Last Admin Trade Name Reynold PRN Reason Stop Dose Admin Acetaminophen 650 mg 12/17/18 12:10 12/20/18 20:01 Tylenol PO 650 mg Q4H PRN Administration Pain MILD(1-3)/Fever >100.5/WHITAKER Acetaminophen/Hydrocodone Bitart 1 each 12/18/18 15:33 12/21/18 09:37 [place] 5/325 PO 1 each Q6H PRN Administration Pain, Moderate (4-6) Albuterol 2.5 mg 12/17/18 12:10 Proventil IH Q4HRT PRN Shortness Of Breath Amlodipine Besylate 5 mg 12/17/18 14:00 12/21/18 09:37 Norvasc PO 5 mg QDAY DANIELLE Administration Enoxaparin Sodium 40 mg 12/19/18 10:00 12/21/18 09:37 Lovenox SUB-Q 40 mg QDAY DANIELLE Administration Folic Acid 1 mg 12/20/18 17:00 12/21/18 09:37 Folvite PO 1 mg QDAY DANIELLE Administration Lactated Ringer's 1,000 mls @ 100 mls/hr 12/18/18 10:00 12/20/18 17:25 Lactated Ringers IV 100 mls/hr DIRECT DANIELLE Administration Metoprolol Tartrate 25 mg 12/17/18 10:00 12/21/18 09:38 Lopressor PO 25 mg BID DANIELLE Administration Morphine Sulfate 2 mg 12/17/18 12:10 12/18/18 01:01 Morphine IV 2 mg Q4H PRN Administration Pain, Moderate (4-6) Morphine Sulfate 4 mg 12/18/18 15:33 12/21/18 11:59 Morphine IV 4 mg Q4H PRN Administration Pain , Severe (7-10) Multivitamins 1 each 12/20/18 17:00 12/21/18 09:38 Theragran Tab PO 1 each QDAY DANIELLE Administration Ondansetron HCl 4 mg 12/17/18 12:10 Zofran IV Q8H PRN Nausea And Vomiting Sodium Chloride 10 ml 12/17/18 22:00 12/21/18 12:03 Sodium Chloride Flush Syringe 10 Ml IV 10 ml BID DANIELLE Administration Sodium Chloride 10 ml 12/17/18 12:10 Sodium Chloride Flush Syringe 10 Ml IV PRN PRN LINE FLUSH
[2018-12-21] MEDS: LACTATED RINGERS 1,000 ML IV SCH (18:22)
[2018-12-22] MEDS: LACTATED RINGERS 1,000 ML IV SCH ×2 (04:34→22:02)
--- NOTE | 2018-12-22 08:00 | Hem/Onc Progress Note ---
Assessment and Plan 1. Bilateral femur fractures status post procedure. 2. Suspicious lytic lesion. The patient is anemic, this appears to be iron deficiency. Blood has been given. We are looking to supportive care. 3. Calcium is not elevated. 4. White cell count is slightly elevated. It is likely reactive. Platelet counts are normal. 5. Creatinine was 0.3 at admission. 6. History of hypertension. 7. History of arthritis. skeletal survey - only femur lesion 12/21 Ct abdo pelvis - liver and ovary lesion d/w pt reg bx 12/22 liver lesion bx clinically ? stage IV ca - liver - bone mets- primary ? ovarian CA 125 d/w dr worthy - Patient Problems (1) Anemia Current Visit: Yes Status: Acute Subjective Date of service: 12/22/18 Principal diagnosis: bone mets Interval history: pt had CT abdo Objective - Constitutional Vitals: Last Vital Signs Temp 98.8 F 12/22/18 04:43 Pulse 91 H 12/22/18 04:43 Resp 18 12/22/18 04:43 BP 146/98 12/22/18 04:43 Pulse Ox 97 12/22/18 04:43 Pain Intensity (0-10): 1/10 General appearance: no acute distress Performance status: 3-limited selfcare - EENT Eyes: EOM intact ENT: clear oral mucosa Lymph node exam: negative cervical - Neck Neck: normal ROM - Respiratory Respiratory effort: Positive: normal Respiratory: bilateral: CTA - Cardiovascular Heart Sounds: Present: S1 & S2 Extremities: normal temperature - Gastrointestinal General gastrointestinal: Present: soft, non-tender Rectal Exam: deferred - Genitourinary Female genitourinary: Present: deferred - Integumentary Integumentary: warm - Musculoskeletal Musculoskeletal: generalized weakness - Neurologic Neurologic: moves all extremities Medications & Allergies - Medications Allergies/Adverse Reactions: Allergies No Known Allergies Allergy (Unverified 12/17/18 07:15) Home Medications: Home Medications Medication Instructions Recorded Confirmed Last Taken Type No Known Home Medications [No 12/17/18 12/17/18 Unknown History Reported Home Medications] Active Medications: Generic Name Dose Route Start Last Admin Trade Name Freq PRN Reason Stop Dose Admin Acetaminophen 650 mg 12/17/18 12:10 12/20/18 20:01 Tylenol PO 650 mg Q4H PRN Administration Pain MILD(1-3)/Fever >100.5/WHITAKER Acetaminophen/Hydrocodone Bitart 1 each 12/18/18 15:33 12/21/18 21:37 [place] 5/325 PO 1 each Q6H PRN Administration Pain, Moderate (4-6) Albuterol 2.5 mg 12/17/18 12:10 Proventil IH Q4HRT PRN Shortness Of Breath Amlodipine Besylate 5 mg 12/17/18 14:00 12/21/18 09:37 Norvasc PO 5 mg QDAY DANIELLE Administration Enoxaparin Sodium 40 mg 12/19/18 10:00 12/21/18 09:37 Lovenox SUB-Q 40 mg QDAY DANIELLE Administration Folic Acid 1 mg 12/20/18 17:00 12/21/18 09:37 Folvite PO 1 mg QDAY DANIELLE Administration Lactated Ringer's 1,000 mls @ 100 mls/hr 12/18/18 10:00 12/22/18 04:34 Lactated Ringers IV 100 mls/hr DIRECT DANIELLE Administration Metoprolol Tartrate 25 mg 12/17/18 10:00 12/21/18 21:36 Lopressor PO 25 mg BID DANIELLE Administration Morphine Sulfate 2 mg 12/17/18 12:10 12/18/18 01:01 Morphine IV 2 mg Q4H PRN Administration Pain, Moderate (4-6) Morphine Sulfate 4 mg 12/18/18 15:33 12/21/18 11:59 Morphine IV 4 mg Q4H PRN Administration Pain , Severe (7-10) Multivitamins 1 each 12/20/18 17:00 12/21/18 09:38 Theragran Tab PO 1 each QDAY DANIELLE Administration Ondansetron HCl 4 mg 12/17/18 12:10 Zofran IV Q8H PRN Nausea And Vomiting Sodium Chloride 10 ml 12/17/18 22:00 12/21/18 21:39 Sodium Chloride Flush Syringe 10 Ml IV Not Given BID DANIELLE Sodium Chloride 10 ml 12/17/18 12:10 Sodium Chloride Flush Syringe 10 Ml IV PRN PRN LINE FLUSH
[2018-12-22] MEDS: THERAGRAN Tab PO SCH (10:07)
[2018-12-22] MEDS: LOVENOX SUB-Q SCH (10:07)
[2018-12-22] MEDS: NORVASC PO SCH (10:07)
[2018-12-22] MEDS: FOLVITE PO SCH (10:08)
[2018-12-22] MEDS: LOPRESSOR PO SCH ×2 (10:08→22:05)
[2018-12-22] MEDS: SODIUM CHLORIDE FLUSH SYRINGE 10 ML IV SCH ×2 (10:12→22:07)
[2018-12-22] MEDS: NORCO 5/325 PO PRN (10:16)
[2018-12-22] MEDS: MORPHINE IV PRN (11:31)
--- NOTE | 2018-12-22 12:54 | Progress Note ---
Assessment and Plan Assessment and plan: Patient is 63 yo with history of hypertension, anemia, arthritis. She presented because of hip pain after fall. Patient says she was walking on level floor, slipped and fell. X ray shows bilateral femur fractures. She was admitted and had surgery closed reduction insertion of intramedullary nail bilateral hip and femorii. X ray revealed osteolytic lesion, therefore Oncology consulted. CT Abd/Pelvis on 12/21 revealed osteolytic lesions, multiple liver lesions likely metastasis, solid and cystic mass in pelvis likely ovarian. Discussed with Dr. Sparrow. Liver biopsy ordered. 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 Bilateral femoral neck fractures, intertrochanteric, displaced s/p surgery on 12/18/18 - closed reduction, insertion of Osteolytic lesions resembling metastatses on iliac bones, sacrum, right troy tabulum Oncology consulted, following I discussed with Dr. Sparrow Pathologic fracture with osteolytic lesions Oncology following Hypertension Monitor BP Chronic osteoarthritis Hypokalemia Replaced Anemia. Hgb 9.2 post 1 Unit PRBC transfusion on 12/20 She had history of chronic anemia Full code status. History Interval history: Mild pain both hips at surgical site Bilateral hip fractures post fall s/p surg on 12/19/18 Gen weakness weight loss Hospitalist Physical - Physical exam Narrative exam: Gen: Not in acute distress, lying in bed HEENT: Normocephalic, atraumatic Neck;supple, no JVD Heart: S1 and S2 reg, no murmurs, rubs or gallop Lungs: Clear to auscultation,, no crackles Abd: soft, non tender, non distended, normal BS Ext: Tender both hips, hips covered with dressing, no cyanosis, Neuro: AAO x 3, no focal signs, moves all ext Psych:Normal mood - Constitutional Vitals: Temp Pulse Resp BP Pulse Ox 98.8 F 97 H 16 121/86 99 12/22/18 11:12 12/22/18 11:14 12/22/18 11:31 12/22/18 11:11 12/22/18 11:11 Results - Labs CBC & Chem 7: 12/21/18 06:20 12/21/18 06:20 Labs: Laboratory Last Values WBC 16.4 K/mm3 (4.5-11.0) H 12/21/18 06:20 RBC 3.81 M/mm3 (3.65-5.03) 12/21/18 06:20 Hgb 9.2 gm/dl (10.1-14.3) L 12/21/18 06:20 Hct 29.5 % (30.3-42.9) L 12/21/18 06:20 MCV 78 fl (79-97) L 12/21/18 06:20 MCH 24 pg (28-32) L 12/21/18 06:20 MCHC 31 % (30-34) 12/21/18 06:20 RDW 26.8 % (13.2-15.2) H 12/21/18 06:20 Plt Count 265 K/mm3 (140-440) 12/21/18 06:20 Lymph % (Auto) 7.7 % (13.4-35.0) L 12/20/18 04:47 [place] % (Auto) 8.3 % (0.0-7.3) H 12/20/18 04:47 Eos % (Auto) 0.0 % (0.0-4.3) 12/20/18 04:47 Baso % (Auto) 0.1 % (0.0-1.8) 12/20/18 04:47 Lymph # 1.2 K/mm3 (1.2-5.4) 12/20/18 04:47 [place] # 1.3 K/mm3 (0.0-0.8) H 12/20/18 04:47 Eos # 0.0 K/mm3 (0.0-0.4) 12/20/18 04:47 Baso # 0.0 K/mm3 (0.0-0.1) 12/20/18 04:47 Seg Neutrophils % 83.9 % (40.0-70.0) H 12/20/18 04:47 Seg Neutrophils # 13.4 K/mm3 (1.8-7.7) H 12/20/18 04:47 PT 13.8 Sec. (12.2-14.9) 12/17/18 08:19 INR 1.00 (0.87-1.13) 12/17/18 08:19 APTT 28.6 Sec. (24.2-36.6) 12/17/18 08:19 Sodium 139 mmol/L (137-145) 12/21/18 06:20 Potassium 4.1 mmol/L (3.6-5.0) 12/21/18 06:20 Chloride 104.8 mmol/L (98-107) 12/21/18 06:20 Carbon Dioxide 23 mmol/L (22-30) 12/21/18 06:20 Anion Gap 15 mmol/L 12/21/18 06:20 BUN 17 mg/dL (7-17) 12/21/18 06:20 Creatinine 0.5 mg/dL (0.7-1.2) L 12/21/18 06:20 Estimated GFR > 60 ml/min 12/21/18 06:20 BUN/Creatinine Ratio 34 % 12/21/18 06:20 Glucose 74 mg/dL (65-100) 12/21/18 06:20 Calcium 8.3 mg/dL (8.4-10.2) L 12/21/18 06:20 Iron 12 ug/dL (37-170) L 12/17/18 09:58 TIBC 223 mcg/dL (250-450) L 12/17/18 09:58 Ferritin 120.8 ng/mL (13.0-400.0) 12/17/18 09:58 Total Bilirubin 1.10 mg/dL (0.1-1.2) 12/20/18 04:47 AST 299 units/L (5-40) H 12/20/18 04:47 ALT 26 units/L (7-56) 12/20/18 04:47 Alkaline Phosphatase 489 units/L (35-129) H 12/20/18 04:47 Total Protein 4.7 g/dL (6.3-8.2) L D 12/20/18 04:47 Albumin 1.7 g/dL (3.9-5) L 12/20/18 04:47 Albumin/Globulin Ratio 0.6 % 12/20/18 04:47 Vitamin B12 724.6 pg/mL (211-911) 12/17/18 09:58 Folate 3.99 ng/mL (7.3-26.0) L 12/20/18 04:47 RBC Folic Acid 901 ng/mL (>280) 12/17/18 09:58 Blood Type A POSITIVE 12/20/18 12:54 Antibody Screen Negative 12/20/18 12:54 Crossmatch See Detail 12/20/18 12:54 Active Medications - Current Medications Current Medications: Generic Name Dose Route Start Last Admin Trade Name Freq PRN Reason Stop Dose Admin Acetaminophen 650 mg 12/17/18 12:10 12/20/18 20:01 Tylenol PO 650 mg Q4H PRN Administration Pain MILD(1-3)/Fever >100.5/WHITAKER Acetaminophen/Hydrocodone Bitart 1 each 12/18/18 15:33 12/22/18 10:16 [place] 5/325 PO 1 each Q6H PRN Administration Pain, Moderate (4-6) Albuterol 2.5 mg 12/17/18 12:10 Proventil IH Q4HRT PRN Shortness Of Breath Amlodipine Besylate 5 mg 12/17/18 14:00 12/22/18 10:07 Norvasc PO 5 mg QDAY DANIELLE Administration Enoxaparin Sodium 40 mg 12/19/18 10:00 12/22/18 10:07 Lovenox SUB-Q 40 mg QDAY DANIELLE Administration Folic Acid 1 mg 12/20/18 17:00 12/22/18 10:08 Folvite PO 1 mg QDAY DANIELLE Administration Lactated Ringer's 1,000 mls @ 100 mls/hr 12/18/18 10:00 12/22/18 04:34 Lactated Ringers IV 100 mls/hr DIRECT DANIELLE Administration Metoprolol Tartrate 25 mg 12/17/18 10:00 12/22/18 10:08 Lopressor PO 25 mg BID DANIELLE Administration Morphine Sulfate 2 mg 12/17/18 12:10 12/22/18 11:31 Morphine IV 2 mg Q4H PRN Administration Pain, Moderate (4-6) Morphine Sulfate 4 mg 12/18/18 15:33 12/21/18 11:59 Morphine IV 4 mg Q4H PRN Administration Pain , Severe (7-10) Multivitamins 1 each 12/20/18 17:00 12/22/18 10:07 Theragran Tab PO 1 each QDAY DANIELLE Administration Ondansetron HCl 4 mg 12/17/18 12:10 Zofran IV Q8H PRN Nausea And Vomiting Sodium Chloride 10 ml 12/17/18 22:00 12/22/18 10:12 Sodium Chloride Flush Syringe 10 Ml IV 10 ml BID DANIELLE Administration Sodium Chloride 10 ml 12/17/18 12:10 Sodium Chloride Flush Syringe 10 Ml IV PRN PRN LINE FLUSH Nutrition/Malnutrition Assess - Dietary Evaluation Nutrition/Malnutrition Findings: Nutrition Notes Start: 12/18/18 11:04 Freq: Status: Active Protocol: Document 12/19/18 16:05 RM (Rec: 12/19/18 16:10 RM [email or web address]) Nutrition Notes Initial or Follow up Reassessment Current Diagnosis Hypertension Other Pertinent Diagnosis Bilateral femur Fx, Anemia, arthritis Current Diet Regular Labs/Tests Reviewed Pertinent Medications Reviewed Height 5 ft 4 in Weight 49.5 kg [place] Body Weight (kg) 54.54 BMI 18.7 Subjective/Other Information Pt stated that she ate half of her breakfast today and all of her dinner last night. Percent of energy/protein needs met: 84%/100% Burn Absent Trauma Absent #1 Nutrition Diagnosis Inadequate oral intake As Evidenced by Signs and Symptoms pt meeting 84% of calorie and 100% of protein needs Diagnosis Progress(for reassessment Resolved documentation) Is patient on ventilator? No Is Patient Ambulatory and/or Out of Bed No REE-([facility]-confined to bed) 1241.556 Kcal/Kg value to use for calculation 35 Approximate Energy Requirements Using 1733 kcal/Kg Calculation Used for Recommendations Kcal/kg Additional Notes PRO: 1-1.2 g/kg ( 44-53 g/day) Fluid: 1 mL/kcal Nutrition Intervention Change Diet Order: Continue current Add Supplement/Snack (indicate name/kcal Ensure Enlive BID /protein ) Provides kCal: 700 Provides Protein (gm) 40 Goal #1 Continue meet at least 75% of calorie and protein needs via PO and ONS intakes Goal #2 wt maintenance/gain Anticipated Discharge Needs: Regular diet Follow-Up By: 12/23/18 Additional Comments Follow for PO and ONS intakes
--- NOTE | 2018-12-22 13:11 | Progress Note ---
Assessment and Plan s/p IM nails both femur doing ok continue PT and observation Subjective Date of service: 12/22/18 Principal diagnosis: bone mets Interval history: no c/o's noted today, granddaughter in room Objective Vital signs: Vital Signs - 12hr 12/22/18 12/22/18 12/22/18 04:43 09:48 10:07 Temperature 98.8 F Pulse Rate 91 H 109 H Respiratory 18 Rate Blood Pressure 146/98 129/92 O2 Sat by Pulse 97 98 Oximetry 12/22/18 12/22/18 12/22/18 10:08 10:10 10:16 Temperature Pulse Rate 110 H Respiratory 20 Rate Blood Pressure 129/92 O2 Sat by Pulse Oximetry 12/22/18 12/22/18 12/22/18 11:11 11:12 11:14 Temperature 98.8 F Pulse Rate 111 H 97 H Respiratory 20 Rate Blood Pressure 121/86 O2 Sat by Pulse 99 Oximetry 12/22/18 11:31 Temperature Pulse Rate Respiratory 16 Rate Blood Pressure O2 Sat by Pulse Oximetry Narrative Exam: both hips - post op dressing intact, no new dc noted incisions ok - Labs CBC & BMP: 12/21/18 06:20 12/21/18 06:20
[2018-12-23 05:16] LABS: Alanine Aminotransferase 12 units/L (7-56); Albumin 1.7 g/dL (3.9-5); BUN/Creatinine Ratio 30; Blood Urea Nitrogen 9 mg/dL (7-17); Calcium 8.3 mg/dL (8.4-10.2); Hemolysis Index 6
[2018-12-23 06:22] LABS: Hematocrit 27.8 % (30.3-42.9); Hemoglobin 8.8 gm/dl (10.1-14.3); Mean Corpuscular HGB Conc 32 % (30-34); Mean Corpuscular Volume 78 fl (79-97); Platelet Count 284 K/mm3 (140-440); Red Blood Count 3.59 M/mm3 (3.65-5.03)
[2018-12-23 06:38] LABS: Red Cell Distribution Width 27.7 % (13.2-15.2)
--- NOTE | 2018-12-23 07:46 | Hem/Onc Progress Note ---
Assessment and Plan 1. Bilateral femur fractures status post procedure. 2. Suspicious lytic lesion. The patient is anemic, this appears to be iron deficiency. Blood has been given. We are looking to supportive care. 3. Calcium is not elevated. 4. White cell count is slightly elevated. It is likely reactive. Platelet counts are normal. 5. Creatinine was 0.3 at admission. 6. History of hypertension. 7. History of arthritis. skeletal survey - only femur lesion 12/21 Ct abdo pelvis - liver and ovary lesion d/w pt reg bx 12/22 liver lesion bx clinically ? stage IV ca - liver - bone mets- primary ? ovarian CA 125 d/w dr worthy 12/23 Bone path adenoca - will cancel liver bx will look into pamidronate d/w pt and family reg stage IV OP follow up if clinically stable - Patient Problems (1) Anemia Current Visit: Yes Status: Acute Subjective Date of service: 12/23/18 Principal diagnosis: adeno ca - in bone mets Interval history: bone bx path available Objective - Constitutional Vitals: Last Vital Signs Temp 98.3 F 12/23/18 04:39 Pulse 97 H 12/23/18 04:39 Resp 12 12/23/18 04:39 BP 123/88 12/23/18 04:39 Pulse Ox 99 12/23/18 04:39 Pain Intensity (0-10): 1/10 (post sx) General appearance: no acute distress Performance status: 3-limited selfcare - EENT Eyes: EOM intact ENT: clear oral mucosa Lymph node exam: negative cervical - Neck Neck: normal ROM - Respiratory Respiratory effort: Positive: normal Respiratory: bilateral: CTA - Cardiovascular Heart Sounds: Present: S1 & S2 Extremities: normal temperature - Gastrointestinal General gastrointestinal: Present: soft, non-tender Rectal Exam: deferred - Genitourinary Female genitourinary: Present: deferred - Integumentary Integumentary: warm - Musculoskeletal Musculoskeletal: strength equal bilaterally - Neurologic Neurologic: moves all extremities - Labs Lab Results: Laboratory Results - last 24 hr 12/23/18 12/23/18 04:25 05:40 WBC 16.1 H RBC 3.59 L Hgb 8.8 L Hct 27.8 L MCV 78 L MCH 25 L MCHC 32 RDW 27.7 H Plt Count 284 Sodium 136 L Potassium 4.0 Chloride 101.2 Carbon Dioxide 23 Anion Gap 16 BUN 9 Creatinine 0.3 L Estimated GFR > 60 BUN/Creatinine Ratio 30 Glucose 78 Calcium 8.3 L Total Bilirubin 1.70 H AST 84 H ALT 12 Alkaline Phosphatase 463 H Total Protein 5.1 L Albumin 1.7 L Albumin/Globulin Ratio 0.5 Medications & Allergies - Medications Allergies/Adverse Reactions: Allergies No Known Allergies Allergy (Unverified 12/17/18 07:15) Home Medications: Home Medications Medication Instructions Recorded Confirmed Last Taken Type No Known Home Medications [No 12/17/18 12/17/18 Unknown History Reported Home Medications] Active Medications: Generic Name Dose Route Start Last Admin Trade Name Freq PRN Reason Stop Dose Admin Acetaminophen 650 mg 12/17/18 12:10 12/20/18 20:01 Tylenol PO 650 mg Q4H PRN Administration Pain MILD(1-3)/Fever >100.5/WHITAKER Acetaminophen/Hydrocodone Bitart 1 each 12/18/18 15:33 12/22/18 10:16 [place] 5/325 PO 1 each Q6H PRN Administration Pain, Moderate (4-6) Albuterol 2.5 mg 12/17/18 12:10 Proventil IH Q4HRT PRN Shortness Of Breath Amlodipine Besylate 5 mg 12/17/18 14:00 12/22/18 10:07 Norvasc PO 5 mg QDAY DANIELLE Administration Enoxaparin Sodium 40 mg 12/19/18 10:00 12/22/18 10:07 Lovenox SUB-Q 40 mg QDAY DANIELLE Administration Folic Acid 1 mg 12/20/18 17:00 12/22/18 10:08 Folvite PO 1 mg QDAY DANIELLE Administration Lactated Ringer's 1,000 mls @ 100 mls/hr 12/18/18 10:00 12/22/18 22:02 Lactated Ringers IV 100 mls/hr DIRECT DANIELLE Administration Metoprolol Tartrate 25 mg 12/17/18 10:00 12/22/18 22:05 Lopressor PO 25 mg BID DANIELLE Administration Morphine Sulfate 2 mg 12/17/18 12:10 12/22/18 11:31 Morphine IV 2 mg Q4H PRN Administration Pain, Moderate (4-6) Morphine Sulfate 4 mg 12/18/18 15:33 12/21/18 11:59 Morphine IV 4 mg Q4H PRN Administration Pain , Severe (7-10) Multivitamins 1 each 12/20/18 17:00 12/22/18 10:07 Theragran Tab PO 1 each QDAY DANIELLE Administration Ondansetron HCl 4 mg 12/17/18 12:10 Zofran IV Q8H PRN Nausea And Vomiting Sodium Chloride 10 ml 12/17/18 22:00 12/22/18 22:07 Sodium Chloride Flush Syringe 10 Ml IV 10 ml BID DANIELLE Administration Sodium Chloride 10 ml 12/17/18 12:10 Sodium Chloride Flush Syringe 10 Ml IV PRN PRN LINE FLUSH
[2018-12-23] MEDS: LACTATED RINGERS 1,000 ML IV SCH (07:52)
[2018-12-23] MEDS: MORPHINE IV PRN ×2 (09:51→20:31)
[2018-12-23] MEDS: NORVASC PO SCH (09:52)
[2018-12-23] MEDS: LOVENOX SUB-Q SCH (09:52)
[2018-12-23] MEDS: LOPRESSOR PO SCH ×2 (09:53→22:14)
[2018-12-23] MEDS: SODIUM CHLORIDE FLUSH SYRINGE 10 ML IV SCH ×2 (09:53→22:15)
[2018-12-23] MEDS: THERAGRAN Tab PO SCH (09:53)
[2018-12-23] MEDS: FOLVITE PO SCH (10:00)
[2018-12-23] MEDS ORDERED: AREDIA 60 MG in NACL 0.9% 1000 ML 1,000 ML IV ONE (11:00)
--- NOTE | 2018-12-23 14:01 | Progress Note ---
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 -s/p transfusion with 1 Unit PRBC on 12/20 -H/H stable -on oral iron tab Pathologic fracture with osteolytic lesions -Continue pain management Abnormal LFT -Likely secondary to metastases Hypertension -fairly controlled -Amlodipine dose increased, will monitor Hypokalemia -Resolved Leukocytosis -Probably reactive -Urinalysis pending Severe protein caloric malnutrition -Dietitian consulted Disposition: For discharge when medically stable History Interval history: Pt complained of leg pain. Hospitalist Physical - Constitutional Vitals: Temp Pulse Resp BP Pulse Ox 99.2 F 119 H 20 141/100 100 12/23/18 12:22 12/23/18 12:20 12/23/18 12:20 12/23/18 12:20 12/23/18 12:20 General appearance: Present: no acute distress - EENT Eyes: Present: PERRL, EOM intact ENT: hearing intact, clear oral mucosa - Neck Neck: Present: supple, normal ROM - Respiratory Respiratory effort: normal Respiratory: bilateral: CTA - Cardiovascular Rhythm: regular Heart Sounds: Present: S1 & S2 - Extremities Extremity abnormal: edema (in bilateral lower extremities) - Abdominal General gastrointestinal: soft, non-tender, non-distended, normal bowel sounds - Integumentary Integumentary: Present: clear, warm, dry - Neurologic Neurologic: moves all extremities Results - Labs CBC & Chem 7: 12/23/18 05:40 12/23/18 04:25 Labs: Laboratory Last Values WBC 16.1 K/mm3 (4.5-11.0) H 12/23/18 05:40 RBC 3.59 M/mm3 (3.65-5.03) L 12/23/18 05:40 Hgb 8.8 gm/dl (10.1-14.3) L 12/23/18 05:40 Hct 27.8 % (30.3-42.9) L 12/23/18 05:40 MCV 78 fl (79-97) L 12/23/18 05:40 MCH 25 pg (28-32) L 12/23/18 05:40 MCHC 32 % (30-34) 12/23/18 05:40 RDW 27.7 % (13.2-15.2) H 12/23/18 05:40 Plt Count 284 K/mm3 (140-440) 12/23/18 05:40 Lymph % (Auto) 7.7 % (13.4-35.0) L 12/20/18 04:47 [place] % (Auto) 8.3 % (0.0-7.3) H 12/20/18 04:47 Eos % (Auto) 0.0 % (0.0-4.3) 12/20/18 04:47 Baso % (Auto) 0.1 % (0.0-1.8) 12/20/18 04:47 Lymph # 1.2 K/mm3 (1.2-5.4) 12/20/18 04:47 [place] # 1.3 K/mm3 (0.0-0.8) H 12/20/18 04:47 Eos # 0.0 K/mm3 (0.0-0.4) 12/20/18 04:47 Baso # 0.0 K/mm3 (0.0-0.1) 12/20/18 04:47 Seg Neutrophils % 83.9 % (40.0-70.0) H 12/20/18 04:47 Seg Neutrophils # 13.4 K/mm3 (1.8-7.7) H 12/20/18 04:47 PT 13.8 Sec. (12.2-14.9) 12/17/18 08:19 INR 1.00 (0.87-1.13) 12/17/18 08:19 APTT 28.6 Sec. (24.2-36.6) 12/17/18 08:19 Sodium 136 mmol/L (137-145) L 12/23/18 04:25 Potassium 4.0 mmol/L (3.6-5.0) 12/23/18 04:25 Chloride 101.2 mmol/L (98-107) 12/23/18 04:25 Carbon Dioxide 23 mmol/L (22-30) 12/23/18 04:25 Anion Gap 16 mmol/L 12/23/18 04:25 BUN 9 mg/dL (7-17) 12/23/18 04:25 Creatinine 0.3 mg/dL (0.7-1.2) L 12/23/18 04:25 Estimated GFR > 60 ml/min 12/23/18 04:25 BUN/Creatinine Ratio 30 % 12/23/18 04:25 Glucose 78 mg/dL (65-100) 12/23/18 04:25 Calcium 8.3 mg/dL (8.4-10.2) L 12/23/18 04:25 Iron 12 ug/dL (37-170) L 12/17/18 09:58 TIBC 223 mcg/dL (250-450) L 12/17/18 09:58 Ferritin 120.8 ng/mL (13.0-400.0) 12/17/18 09:58 Total Bilirubin 1.70 mg/dL (0.1-1.2) H 12/23/18 04:25 AST 84 units/L (5-40) H 12/23/18 04:25 ALT 12 units/L (7-56) 12/23/18 04:25 Alkaline Phosphatase 463 units/L (35-129) H 12/23/18 04:25 Total Protein 5.1 g/dL (6.3-8.2) L 12/23/18 04:25 Albumin 1.7 g/dL (3.9-5) L 12/23/18 04:25 Albumin/Globulin Ratio 0.5 % 12/23/18 04:25 Vitamin B12 724.6 pg/mL (211-911) 12/17/18 09:58 Folate 3.99 ng/mL (7.3-26.0) L 12/20/18 04:47 RBC Folic Acid 901 ng/mL (>280) 12/17/18 09:58 Blood Type A POSITIVE 12/20/18 12:54 Antibody Screen Negative 12/20/18 12:54 Crossmatch See Detail 12/20/18 12:54 Active Medications - Current Medications Current Medications: Generic Name Dose Route Start Last Admin Trade Name Freq PRN Reason Stop Dose Admin Acetaminophen 650 mg 12/17/18 12:10 12/20/18 20:01 Tylenol PO 650 mg Q4H PRN Administration Pain MILD(1-3)/Fever >100.5/WHITAKER Acetaminophen/Hydrocodone Bitart 1 each 12/18/18 15:33 12/22/18 10:16 [place] 5/325 PO 1 each Q6H PRN Administration Pain, Moderate (4-6) Albuterol 2.5 mg 12/17/18 12:10 Proventil IH Q4HRT PRN Shortness Of Breath Amlodipine Besylate 5 mg 12/17/18 14:00 12/23/18 09:52 Norvasc PO 5 mg QDAY DANIELLE Administration Enoxaparin Sodium 40 mg 12/19/18 10:00 12/23/18 09:52 Lovenox SUB-Q 40 mg QDAY DANIELLE Administration Folic Acid 1 mg 12/20/18 17:00 12/22/18 10:08 Folvite PO 1 mg QDAY DANIELLE Administration Lactated Ringer's 1,000 mls @ 100 mls/hr 12/18/18 10:00 12/23/18 07:52 Lactated Ringers IV 100 mls/hr DIRECT DANIELLE Administration Pamidronate Disodium 60 mg/ 1,006.6667 mls @ 100 mls/hr 12/23/18 11:00 Sodium Chloride IV 12/23/18 21:03 ONCE ONE Metoprolol Tartrate 25 mg 12/17/18 10:00 12/23/18 09:53 Lopressor PO 25 mg BID DANIELLE Administration Morphine Sulfate 2 mg 12/17/18 12:10 12/23/18 09:51 Morphine IV 2 mg Q4H PRN Administration Pain, Moderate (4-6) Morphine Sulfate 4 mg 12/18/18 15:33 12/21/18 11:59 Morphine IV 4 mg Q4H PRN Administration Pain , Severe (7-10) Multivitamins 1 each 12/20/18 17:00 12/23/18 09:53 Theragran Tab PO 1 each QDAY DANIELLE Administration Ondansetron HCl 4 mg 12/17/18 12:10 Zofran IV Q8H PRN Nausea And Vomiting Sodium Chloride 10 ml 12/17/18 22:00 12/23/18 09:53 Sodium Chloride Flush Syringe 10 Ml IV 10 ml BID DANIELLE Administration Sodium Chloride 10 ml 12/17/18 12:10 Sodium Chloride Flush Syringe 10 Ml IV PRN PRN LINE FLUSH Nutrition/Malnutrition Assess - Dietary Evaluation Nutrition/Malnutrition Findings: Nutrition Notes Start: 12/18/18 11:04 Freq: Status: Active Protocol: Document 12/23/18 13:08 (Rec: 12/23/18 13:17 [email or web address]) Co-Sign 12/23/18 13:08 LP Nutrition Notes Initial or Follow up Reassessment Current Diagnosis Hypertension Other Pertinent Diagnosis Bilateral femur Fx, Anemia, arthritis Current Diet Regular Labs/Tests Na: 136 Cr: 0.3 Ca: 8.3 Pertinent Medications Reviewed Height 5 ft 4 in Weight 57.3 kg [place] Body Weight (kg) 54.54 BMI 21.7 Weight Status Appropriate Subjective/Other Information Patient states appetite is on and off due to dealing with depression. Pt reports eating 25% of meals and drinking 100% of one ensure a day. Patient denies N/V/D. Pt reports swallowing difficulty when swallowing certain foods that are dry. However, pt doesn't want to change consistency. Pt reports UBW: 139#. Percent of energy/protein needs met: 46%/73% Burn Absent Trauma Absent #1 Nutrition Diagnosis Inadequate oral intake As Evidenced by Signs and Symptoms patient eating only 25% of meals and meeting only 46% of calorie needs Diagnosis Progress(for reassessment Continues documentation) Is patient on ventilator? No Is Patient Ambulatory and/or Out of Bed No REE-([facility]-confined to bed) 1335.060 Kcal/Kg value to use for calculation 35 Approximate Energy Requirements Using 2006 kcal/Kg Calculation Used for Recommendations Kcal/kg Additional Notes PRO: 1-1.2 g/kg ( 57- g/day) Fluid: 1 mL/kcal Nutrition Intervention Change Diet Order: Continue current Add Supplement/Snack (indicate name/kcal Ensure Enlive BID /protein ) Provides kCal: 700 Provides Protein (gm) 40 Goal #1 Meet at least 75% of calorie and protein needs via PO and ONS intakes Goal #2 wt maintenance Anticipated Discharge Needs: Regular diet Follow-Up By: 12/25/18 Additional Comments F/U: PO and ONS intakes
[2018-12-23 16:34] LABS: Bacteria,Urine 1+ /HPF (Negative); Bilirubin,Urine NEG (Negative); Blood,Urine NEG (Negative); Color,Urine Amber (Yellow); Mucus,Urine FEW /HPF; Protein,Urine <15 mg/dL mg/dL (Negative)
[2018-12-23] MEDS: COLACE PO SCH (22:14)
[2018-12-23] MEDS: FEOSOL PO SCH (22:15)
[2018-12-24 05:29] LABS: Hematocrit 27.7 % (30.3-42.9); Hemoglobin 8.8 gm/dl (10.1-14.3); Mean Corpuscular HGB Conc 32 % (30-34); Mean Corpuscular Volume 77 fl (79-97); Platelet Count 327 K/mm3 (140-440); Red Blood Count 3.59 M/mm3 (3.65-5.03)
[2018-12-24 05:31] LABS: Red Cell Distribution Width 27.9 % (13.2-15.2)
[2018-12-24 06:23] LABS: Anisocytosis 3+; Band Neutrophils # (Manual) 0.2 K/mm3; Basophils % (Manual) 0 % (0.0-1.8); Eosinophils % (Manual) 0 % (0.0-4.3); Hypochromasia 1+; Total Cells Counted 100
[2018-12-24 06:24] LABS: Poikilocytosis 1+; Target Cells Few
[2018-12-24 06:25] LABS: Platelet Estimate Consistent w Auto
--- NOTE | 2018-12-24 07:42 | Hem/Onc Progress Note ---
Assessment and Plan 1. Bilateral femur fractures status post procedure. 2. Suspicious lytic lesion. The patient is anemic, this appears to be iron deficiency. Blood has been given. We are looking to supportive care. 3. Calcium is not elevated. 4. White cell count is slightly elevated. It is likely reactive. Platelet counts are normal. 5. Creatinine was 0.3 at admission. 6. History of hypertension. 7. History of arthritis. skeletal survey - only femur lesion 12/21 Ct abdo pelvis - liver and ovary lesion d/w pt reg bx 12/22 liver lesion bx clinically ? stage IV ca - liver - bone mets- primary ? ovarian CA 125 d/w dr worthy 12/23 Bone path adenoca - will cancel liver bx will look into pamidronate d/w pt and family reg stage IV OP follow up if clinically stable 12/24 path - colo rectal primary stage IV - liver nad bone mets medicaid being done pamidronate XRT consult OP follow up an option pt may need chemo - will review with pt anemia - s/p iv and oral iron low foalte on replacement - Patient Problems (1) Anemia Current Visit: Yes Status: Acute Subjective Date of service: 12/24/18 Principal diagnosis: mets - to bone and liver Interval history: s/p pamidronate Objective - Constitutional Vitals: Last Vital Signs Temp 98.3 F 12/24/18 03:39 Pulse 99 H 12/24/18 03:39 Resp 12 12/24/18 03:39 BP 126/93 12/24/18 03:39 Pulse Ox 99 12/24/18 03:39 Pain Intensity (0-10): 1/10 General appearance: no acute distress Performance status: 3-limited selfcare - EENT Eyes: EOM intact ENT: clear oral mucosa Lymph node exam: negative cervical - Neck Neck: normal ROM - Respiratory Respiratory effort: Positive: normal Respiratory: bilateral: CTA - Cardiovascular Heart Sounds: Present: S1 & S2 Extremities: normal temperature - Gastrointestinal General gastrointestinal: Present: soft, non-tender Rectal Exam: deferred - Genitourinary Female genitourinary: Present: deferred - Musculoskeletal Musculoskeletal: generalized weakness - Neurologic Neurologic: moves all extremities - Labs Lab Results: Laboratory Results - last 24 hr 12/23/18 12/24/18 12/24/18 16:11 04:25 04:25 WBC 17.8 H RBC 3.59 L Hgb 8.8 L Hct 27.7 L MCV 77 L MCH 25 L MCHC 32 RDW 27.9 H Plt Count 327 Add Manual Diff Complete Total Counted 100 Seg Neuts % (Manual) 83.0 H Band Neutrophils % 1.0 Lymphocytes % (Manual) 4.0 L Reactive Lymphs % (Man) 0 Monocytes % (Manual) 11.0 H Eosinophils % (Manual) 0 Basophils % (Manual) 0 Metamyelocytes % 1.0 Myelocytes % 0 Promyelocytes % 0 Blast Cells % 0 Nucleated RBC % Not Reportable Seg Neutrophils # Man 14.8 H Band Neutrophils # 0.2 Lymphocytes # (Manual) 0.7 L Abs React Lymphs (Man) 0.0 Monocytes # (Manual) 2.0 H Eosinophils # (Manual) 0.0 Basophils # (Manual) 0.0 Metamyelocytes # 0.2 Myelocytes # 0.0 Promyelocytes # 0.0 Blast Cells # 0.0 WBC Morphology Not Reportable Hypersegmented Neuts Not Reportable Hyposegmented Neuts Not Reportable Hypogranular Neuts Not Reportable Smudge Cells Not Reportable Toxic Granulation Not Reportable Toxic Vacuolation Not Reportable Dohle Bodies Not Reportable Pelger-Huet Anomaly Not Reportable Natalee Rods Not Reportable Platelet Estimate Consistent w auto Clumped Platelets Not Reportable Plt Clumps, EDTA Not Reportable Large Platelets Not Reportable Giant Platelets Not Reportable Platelet Satelliting Not Reportable Plt Morphology Comment Not Reportable RBC Morphology Not Reportable Dimorphic RBCs Not Reportable Polychromasia Not Reportable Hypochromasia 1+ Poikilocytosis 1+ Anisocytosis 3+ Microcytosis 1+ Macrocytosis Not Reportable Spherocytes Not Reportable Pappenheimer Bodies Not Reportable Sickle Cells Not Reportable Target Cells Few Tear Drop Cells Not Reportable Ovalocytes Not Reportable Helmet Cells Not Reportable Hazel-[place] Bodies Not Reportable [place] Rings Not Reportable Clementina Cells Not Reportable Bite Cells Not Reportable Crenated Cell Not Reportable Elliptocytes Few Acanthocytes (Spur) Not Reportable Rouleaux Not Reportable Hemoglobin C Crystals Not Reportable Schistocytes Not Reportable Malaria parasites Not Reportable Simeon Bodies Not Reportable Hem Pathologist Commnt No Magnesium 1.40 L Urine Color [place] Urine Turbidity Clear Urine pH 5.0 Ur Specific [place] 1.010 Urine Protein <15 mg/dl Urine Glucose (UA) Neg Urine Ketones Neg Urine Blood Neg Urine Nitrite Neg Urine Bilirubin Neg Urine Urobilinogen 4.0 Ur Leukocyte Esterase Tr Urine WBC (Auto) 12.0 H Urine RBC (Auto) 4.0 U Epithel Cells (Auto) < 1.0 Urine Bacteria (Auto) 1+ Urine Mucus Few Medications & Allergies - Medications Allergies/Adverse Reactions: Allergies No Known Allergies Allergy (Unverified 12/17/18 07:15) Home Medications: Home Medications Medication Instructions Recorded Confirmed Last Taken Type No Known Home Medications [No 12/17/18 12/17/18 Unknown History Reported Home Medications] Active Medications: Generic Name Dose Route Start Last Admin Trade Name Freq PRN Reason Stop Dose Admin Acetaminophen 650 mg 12/17/18 12:10 12/20/18 20:01 Tylenol PO 650 mg Q4H PRN Administration Pain MILD(1-3)/Fever >100.5/WHITAKER Acetaminophen/Hydrocodone Bitart 1 each 12/18/18 15:33 12/22/18 10:16 [place] 5/325 PO 1 each Q6H PRN Administration Pain, Moderate (4-6) Albuterol 2.5 mg 12/17/18 12:10 Proventil IH Q4HRT PRN Shortness Of Breath Amlodipine Besylate 10 mg 12/23/18 14:01 Norvasc PO QDAY DANIELLE Docusate Sodium 100 mg 12/23/18 22:00 12/23/18 22:14 Colace PO 100 mg BID DANIELLE Administration Enoxaparin Sodium 40 mg 12/19/18 10:00 12/23/18 09:52 Lovenox SUB-Q 40 mg QDAY DANIELLE Administration Ferrous Sulfate 325 mg 12/23/18 22:00 12/23/18 22:15 Feosol PO 325 mg BID DANIELLE Administration Folic Acid 1 mg 12/20/18 17:00 12/23/18 10:00 Folvite PO 1 mg QDAY DANIELLE Administration Metoprolol Tartrate 25 mg 12/17/18 10:00 12/23/18 22:14 Lopressor PO 25 mg BID DANIELLE Administration Morphine Sulfate 2 mg 12/17/18 12:10 12/23/18 20:31 Morphine IV 2 mg Q4H PRN Administration Pain, Moderate (4-6) Morphine Sulfate 4 mg 12/18/18 15:33 04/14/19 11:59 Morphine IV 4 mg Q4H PRN Administration Pain , Severe (7-10) Multivitamins 1 each 12/20/18 17:00 12/23/18 09:53 Theragran Tab PO 1 each QDAY DANIELLE Administration Ondansetron HCl 4 mg 12/17/18 12:10 Zofran IV Q8H PRN Nausea And Vomiting Sodium Chloride 10 ml 12/17/18 22:00 12/23/18 22:15 Sodium Chloride Flush Syringe 10 Ml IV 10 ml BID DANIELLE Administration Sodium Chloride 10 ml 12/17/18 12:10 Sodium Chloride Flush Syringe 10 Ml IV PRN PRN LINE FLUSH
[2018-12-24] MEDS: FEOSOL PO SCH ×2 (10:46→22:31)
[2018-12-24] MEDS: COLACE PO SCH ×2 (10:46→22:31)
[2018-12-24] MEDS: THERAGRAN Tab PO SCH (10:46)
[2018-12-24] MEDS: LOPRESSOR PO SCH ×2 (10:46→22:32)
[2018-12-24] MEDS: FOLVITE PO SCH (10:46)
[2018-12-24] MEDS: NORVASC PO SCH (10:47)
[2018-12-24] MEDS: ROCEPHIN/NS 1 GM/50 ML 1 GM/50 ML BAG IV SCH (10:48)
[2018-12-24] MEDS: LOVENOX SUB-Q SCH (10:48)
[2018-12-24] MEDS: MORPHINE IV PRN ×2 (10:48→17:39)
[2018-12-24] MEDS: SODIUM CHLORIDE FLUSH SYRINGE 10 ML IV SCH ×2 (11:25→22:32)
--- NOTE | 2018-12-24 14:14 | Progress Note ---
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 -s/p transfusion with 1 Unit PRBC on 12/20 -H/H stable -on oral iron tab Pathologic fracture with osteolytic lesions -Continue pain management Abnormal LFT -Likely secondary to metastases Hypertension -fairly controlled -Amlodipine dose increased, will monitor Hypokalemia -Resolved Leukocytosis probably secondary to UTI -On IV antibiotic -We'll follow up blood culture results Severe protein caloric malnutrition -Dietitian consulted Disposition: For discharge when medically stable History Interval history: Patient complaining of right leg pain. Hospitalist Physical - Constitutional Vitals: Temp Pulse Resp BP Pulse Ox 98.7 F 101 H 20 133/97 94 12/24/18 12:35 12/24/18 12:35 12/24/18 12:35 12/24/18 12:35 12/24/18 12:35 General appearance: Present: no acute distress - EENT Eyes: Present: PERRL, EOM intact ENT: hearing intact, clear oral mucosa - Neck Neck: Present: supple - Respiratory Respiratory effort: normal Respiratory: bilateral: CTA - Cardiovascular Rhythm: regular Heart Sounds: Present: S1 & S2 - Extremities Extremity abnormal: edema (in BLE) - Abdominal General gastrointestinal: soft, non-tender, non-distended, normal bowel sounds - Neurologic Neurologic: moves all extremities Results - Labs CBC & Chem 7: 12/24/18 04:25 12/23/18 04:25 Labs: Laboratory Last Values WBC 17.8 K/mm3 (4.5-11.0) H 12/24/18 04:25 RBC 3.59 M/mm3 (3.65-5.03) L 12/24/18 04:25 Hgb 8.8 gm/dl (10.1-14.3) L 12/24/18 04:25 Hct 27.7 % (30.3-42.9) L 12/24/18 04:25 MCV 77 fl (79-97) L 12/24/18 04:25 MCH 25 pg (28-32) L 12/24/18 04:25 MCHC 32 % (30-34) 12/24/18 04:25 RDW 27.9 % (13.2-15.2) H 12/24/18 04:25 Plt Count 327 K/mm3 (140-440) 12/24/18 04:25 Lymph % (Auto) 7.7 % (13.4-35.0) L 12/20/18 04:47 [place] % (Auto) 8.3 % (0.0-7.3) H 12/20/18 04:47 Eos % (Auto) 0.0 % (0.0-4.3) 12/20/18 04:47 Baso % (Auto) 0.1 % (0.0-1.8) 12/20/18 04:47 Lymph # 1.2 K/mm3 (1.2-5.4) 12/20/18 04:47 [place] # 1.3 K/mm3 (0.0-0.8) H 12/20/18 04:47 Eos # 0.0 K/mm3 (0.0-0.4) 12/20/18 04:47 Baso # 0.0 K/mm3 (0.0-0.1) 12/20/18 04:47 Add Manual Diff Complete 12/24/18 04:25 Total Counted 100 12/24/18 04:25 Seg Neutrophils % 83.9 % (40.0-70.0) H 12/20/18 04:47 Seg Neuts % (Manual) 83.0 % (40.0-70.0) H 12/24/18 04:25 Band Neutrophils % 1.0 % 12/24/18 04:25 Lymphocytes % (Manual) 4.0 % (13.4-35.0) L 12/24/18 04:25 Reactive Lymphs % (Man) 0 % 12/24/18 04:25 Monocytes % (Manual) 11.0 % (0.0-7.3) H 12/24/18 04:25 Eosinophils % (Manual) 0 % (0.0-4.3) 12/24/18 04:25 Basophils % (Manual) 0 % (0.0-1.8) 12/24/18 04:25 Metamyelocytes % 1.0 % 12/24/18 04:25 Myelocytes % 0 % 12/24/18 04:25 Promyelocytes % 0 % 12/24/18 04:25 Blast Cells % 0 % 12/24/18 04:25 Nucleated RBC % Not Reportable 12/24/18 04:25 Seg Neutrophils # 13.4 K/mm3 (1.8-7.7) H 12/20/18 04:47 Seg Neutrophils # Man 14.8 K/mm3 (1.8-7.7) H 12/24/18 04:25 Band Neutrophils # 0.2 K/mm3 12/24/18 04:25 Lymphocytes # (Manual) 0.7 K/mm3 (1.2-5.4) L 12/24/18 04:25 Abs React Lymphs (Man) 0.0 K/mm3 12/24/18 04:25 Monocytes # (Manual) 2.0 K/mm3 (0.0-0.8) H 12/24/18 04:25 Eosinophils # (Manual) 0.0 K/mm3 (0.0-0.4) 12/24/18 04:25 Basophils # (Manual) 0.0 K/mm3 (0.0-0.1) 12/24/18 04:25 Metamyelocytes # 0.2 K/mm3 12/24/18 04:25 Myelocytes # 0.0 K/mm3 12/24/18 04:25 Promyelocytes # 0.0 K/mm3 12/24/18 04:25 Blast Cells # 0.0 K/mm3 12/24/18 04:25 WBC Morphology Not Reportable 12/24/18 04:25 Hypersegmented Neuts Not Reportable 12/24/18 04:25 Hyposegmented Neuts Not Reportable 12/24/18 04:25 Hypogranular Neuts Not Reportable 12/24/18 04:25 Smudge Cells Not Reportable 12/24/18 04:25 Toxic Granulation Not Reportable 12/24/18 04:25 Toxic Vacuolation Not Reportable 12/24/18 04:25 Dohle Bodies Not Reportable 12/24/18 04:25 Pelger-Huet Anomaly Not Reportable 12/24/18 04:25 Natalee Rods Not Reportable 12/24/18 04:25 Platelet Estimate Consistent w auto 12/24/18 04:25 Clumped Platelets Not Reportable 12/24/18 04:25 Plt Clumps, EDTA Not Reportable 12/24/18 04:25 Large Platelets Not Reportable 12/24/18 04:25 Giant Platelets Not Reportable 12/24/18 04:25 Platelet Satelliting Not Reportable 12/24/18 04:25 Plt Morphology Comment Not Reportable 12/24/18 04:25 RBC Morphology Not Reportable 12/24/18 04:25 Dimorphic RBCs Not Reportable 12/24/18 04:25 Polychromasia Not Reportable 12/24/18 04:25 Hypochromasia 1+ 12/24/18 04:25 Poikilocytosis 1+ 12/24/18 04:25 Anisocytosis 3+ 12/24/18 04:25 Microcytosis 1+ 12/24/18 04:25 Macrocytosis Not Reportable 12/24/18 04:25 Spherocytes Not Reportable 12/24/18 04:25 Pappenheimer Bodies Not Reportable 12/24/18 04:25 Sickle Cells Not Reportable 12/24/18 04:25 Target Cells Few 12/24/18 04:25 Tear Drop Cells Not Reportable 12/24/18 04:25 Ovalocytes Not Reportable 12/24/18 04:25 Helmet Cells Not Reportable 12/24/18 04:25 Hazel-[place] Bodies Not Reportable 12/24/18 04:25 [place] Rings Not Reportable 12/24/18 04:25 Clementina Cells Not Reportable 12/24/18 04:25 Bite Cells Not Reportable 12/24/18 04:25 Crenated Cell Not Reportable 12/24/18 04:25 Elliptocytes Few 12/24/18 04:25 Acanthocytes (Spur) Not Reportable 12/24/18 04:25 Rouleaux Not Reportable 12/24/18 04:25 Hemoglobin C Crystals Not Reportable 12/24/18 04:25 Schistocytes Not Reportable 12/24/18 04:25 Malaria parasites Not Reportable 12/24/18 04:25 Simeon Bodies Not Reportable 12/24/18 04:25 Hem Pathologist Commnt No 12/24/18 04:25 PT 13.8 Sec. (12.2-14.9) 12/17/18 08:19 INR 1.00 (0.87-1.13) 12/17/18 08:19 APTT 28.6 Sec. (24.2-36.6) 12/17/18 08:19 Sodium 136 mmol/L (137-145) L 12/23/18 04:25 Potassium 4.0 mmol/L (3.6-5.0) 12/23/18 04:25 Chloride 101.2 mmol/L (98-107) 12/23/18 04:25 Carbon Dioxide 23 mmol/L (22-30) 12/23/18 04:25 Anion Gap 16 mmol/L 12/23/18 04:25 BUN 9 mg/dL (7-17) 12/23/18 04:25 Creatinine 0.3 mg/dL (0.7-1.2) L 12/23/18 04:25 Estimated GFR > 60 ml/min 12/23/18 04:25 BUN/Creatinine Ratio 30 % 12/23/18 04:25 Glucose 78 mg/dL (65-100) 12/23/18 04:25 Calcium 8.3 mg/dL (8.4-10.2) L 12/23/18 04:25 Magnesium 1.40 mg/dL (1.7-2.3) L 12/24/18 04:25 Iron 12 ug/dL (37-170) L 12/17/18 09:58 TIBC 223 mcg/dL (250-450) L 12/17/18 09:58 Ferritin 120.8 ng/mL (13.0-400.0) 12/17/18 09:58 Total Bilirubin 1.70 mg/dL (0.1-1.2) H 12/23/18 04:25 AST 84 units/L (5-40) H 12/23/18 04:25 ALT 12 units/L (7-56) 12/23/18 04:25 Alkaline Phosphatase 463 units/L (35-129) H 12/23/18 04:25 Total Protein 5.1 g/dL (6.3-8.2) L 12/23/18 04:25 Albumin 1.7 g/dL (3.9-5) L 12/23/18 04:25 Albumin/Globulin Ratio 0.5 % 12/23/18 04:25 Vitamin B12 724.6 pg/mL (211-911) 12/17/18 09:58 Folate 3.99 ng/mL (7.3-26.0) L 12/20/18 04:47 RBC Folic Acid 901 ng/mL (>280) 12/17/18 09:58 Urine Color [place] (Yellow) 12/23/18 16:11 Urine Turbidity Clear (Clear) 12/23/18 16:11 Urine pH 5.0 (5.0-7.0) 12/23/18 16:11 Ur Specific [place] 1.010 (1.003-1.030) 12/23/18 16:11 Urine Protein <15 mg/dl mg/dL (Negative) 12/23/18 16:11 Urine Glucose (UA) Neg mg/dL (Negative) 12/23/18 16:11 Urine Ketones Neg mg/dL (Negative) 12/23/18 16:11 Urine Blood Neg (Negative) 12/23/18 16:11 Urine Nitrite Neg (Negative) 12/23/18 16:11 Urine Bilirubin Neg (Negative) 12/23/18 16:11 Urine Urobilinogen 4.0 mg/dL (<2.0) 12/23/18 16:11 Ur Leukocyte Esterase Tr (Negative) 12/23/18 16:11 Urine WBC (Auto) 12.0 /HPF (0.0-6.0) H 12/23/18 16:11 Urine RBC (Auto) 4.0 /HPF (0.0-6.0) 12/23/18 16:11 U Epithel Cells (Auto) < 1.0 /HPF (0-13.0) 12/23/18 16:11 Urine Bacteria (Auto) 1+ /HPF (Negative) 12/23/18 16:11 Urine Mucus Few /HPF 12/23/18 16:11 Blood Type A POSITIVE 12/20/18 12:54 Antibody Screen Negative 12/20/18 12:54 Crossmatch See Detail 12/20/18 12:54 Active Medications - Current Medications Current Medications: Generic Name Dose Route Start Last Admin Trade Name Freq PRN Reason Stop Dose Admin Acetaminophen 650 mg 12/17/18 12:10 12/20/18 20:01 Tylenol PO 650 mg Q4H PRN Administration Pain MILD(1-3)/Fever >100.5/WHITAKER Acetaminophen/Hydrocodone Bitart 1 each 12/18/18 15:33 12/22/18 10:16 [place] 5/325 PO 1 each Q6H PRN Administration Pain, Moderate (4-6) Albuterol 2.5 mg 12/17/18 12:10 Proventil IH Q4HRT PRN Shortness Of Breath Amlodipine Besylate 10 mg 12/23/18 14:01 12/24/18 10:47 Norvasc PO 10 mg QDAY DANIELLE Administration Docusate Sodium 100 mg 12/23/18 22:00 12/24/18 10:46 Colace PO 100 mg BID DANIELLE Administration Enoxaparin Sodium 40 mg 12/19/18 10:00 12/24/18 10:48 Lovenox SUB-Q 40 mg QDAY DANIELLE Administration Ferrous Sulfate 325 mg 12/23/18 22:00 12/24/18 10:46 Feosol PO 325 mg BID DANIELLE Administration Folic Acid 1 mg 12/20/18 17:00 12/24/18 10:46 Folvite PO 1 mg QDAY DANIELLE Administration Ceftriaxone Sodium 1 gm in 50 mls @ 100 mls/hr 12/24/18 10:00 12/24/18 10:48 Rocephin/Ns 1 Gm/50 Ml IV 100 mls/hr Q24HR DANIELLE Administration Protocol Metoprolol Tartrate 25 mg 12/17/18 10:00 12/24/18 10:46 Lopressor PO 25 mg BID DANIELLE Administration Morphine Sulfate 2 mg 12/17/18 12:10 12/24/18 10:48 Morphine IV 2 mg Q4H PRN Administration Pain, Moderate (4-6) Morphine Sulfate 4 mg 12/18/18 15:33 12/21/18 11:59 Morphine IV 4 mg Q4H PRN Administration Pain , Severe (7-10) Multivitamins 1 each 12/20/18 17:00 12/24/18 10:46 Theragran Tab PO 1 each QDAY DANIELLE Administration Ondansetron HCl 4 mg 12/17/18 12:10 Zofran IV Q8H PRN Nausea And Vomiting Sodium Chloride 10 ml 12/17/18 22:00 12/24/18 11:25 Sodium Chloride Flush Syringe 10 Ml IV 10 ml BID DANIELLE Administration Sodium Chloride 10 ml 12/17/18 12:10 Sodium Chloride Flush Syringe 10 Ml IV PRN PRN LINE FLUSH Nutrition/Malnutrition Assess - Dietary Evaluation Nutrition/Malnutrition Findings: Nutrition Notes Start: 12/18/18 11:04 Freq: Status: Active Protocol: Document 12/24/18 09:23 (Rec: 12/24/18 09:34 [id number]) Co-Sign 12/24/18 09:23 LP Nutrition Notes Need for Assessment generated from: MD Order Initial or Follow up Brief Note Subjective/Other Information MD consult for malnutrition. Pt already being followed. Nutrition Intervention Follow-Up By: 12/25/18 Additional Comments F/U: PO and ONS intake
--- NOTE | 2018-12-24 22:28 | Consultation ---
REFERRING PHYSICIAN: Ranjeet Sparrow MD CHIEF COMPLAINT: " PROFILE: This is a 63-year-old woman with a history of metastatic colorectal cancer, referred for palliative radiotherapy. CONCLUSION: 1. Newly diagnosed extensive stage IV adenocarcinoma of the colon and rectum diagnosed on 12/19/2018. 2. Status post bilateral open reduction and internal fixation of her femurs related to pathologic fracture for metastatic cancer. 3. History of liver and ovarian metastases. 4. History of hypertension. RECOMMENDATION: We agree with recommendation of potential systemic treatment under direction of Dr. Sparrow. We will consider bilateral hip irradiation 8 Gy in one fraction. ASSESSMENT: This is a very pleasant 63-year-old woman with a history of hypertension, anemia, and arthritis. She had an incident where she slipped and fell and experienced bilateral femur fractures. She underwent open reduction and internal fixation bilaterally and biopsy confirmed adenocarcinoma consistent with a colorectal primary carcinoma. CT scan of the abdomen and pelvis reveals large heterogeneous areas throughout the liver with abnormal enhancement. It was involving both lobes. The lesion on the left lobe measures 7.9 x 4.0 cm. This was consistent with metastatic cancer. In addition, there was a solid and cystic mass involving the right ovary measuring 5.5 cm. There was celiac axis adenopathy with a 1-cm lymph node. Omental nodules were noted in the right upper quadrant. Chronic lytic appearance of the right ilium above the acetabulum consistent with metastatic disease. Lumbar vertebrae demonstrate mixed sclerotic appearance compatible with metastatic disease. T12 demonstrated a more prominent lytic component. CT scan of the pelvis did confirm postsurgical changes consistent with post-ORIF of bilateral intertrochanteric fractures with retained hardware. Again seen were multiple liver metastases. She is now referred for consultation. Clinically, she is doing reasonably well. She does have bilateral hip pain. She has been ambulating. She denies any headache, visual changes, balance problems, chest pain, hemoptysis, dyspnea. PAST MEDICAL HISTORY: 1. Recent diagnosis of stage 4 probable adenocarcinoma of the colon and rectum with liver and bone metastases. 2. History of hypertension, arthritis. SOCIAL HISTORY: Nonsmoker. FAMILY HISTORY: Noncontributory. MEDICATIONS: Tylenol, albuterol, ____, metoprolol, morphine. ALLERGIES: No known allergies. REVIEW OF SYSTEMS: CONSTITUTIONAL: She is weak and tired. Denies fever or chills. Notes 10-pound weight loss. HEENT: Denies any headache, double vision, blurry vision, seizure, otalgia, hoarseness, pharyngitis. RESPIRATORY: Denies any dyspnea, wheezing, cough, or hemoptysis. CARDIOVASCULAR: Denies any chest pain, angina, orthopnea, orthostasis. GASTROINTESTINAL: Denies any nausea, vomiting, diarrhea. She denies any rectal bleeding. GENITOURINARY: Denies any dysuria or incontinence. MUSCULOSKELETAL: She has bilateral hip pain related to ORIF. PHYSICAL EXAMINATION: GENERAL: She is an elderly, chronically ill appearing woman, sitting comfortably in a chair. VITAL SIGNS: Blood pressure 126/93, pulse is 90. She is afebrile, respirations 12, pulse ox 99%. ECOG equals 2. Pain equals 5/10. HEENT: Normocephalic, atraumatic. Eyes are clear. No spinal or CVA tenderness. LUNGS: Clear. Axillae are clear. CARDIOVASCULAR: Regular rate and rhythm. Faint heart tones. ABDOMEN: Flat. EXTREMITIES: No clubbing, cyanosis. A 1+ edema bilaterally of ankles. She is status post bilateral ORIF. NEUROLOGIC: Her motor, sensory, and cerebellar exam intact. DISCUSSION: This unfortunate 63-year-old woman who has been recently diagnosed as having extensive metastatic adenocarcinoma of probable colorectal origin. She has very extensive liver mets. She presented with bilateral intertrochanteric fractures of her femur related to metastatic disease. Pathology is positive for adenocarcinoma. After a significant period of healing, we will consider 8 Gy in 1 fraction to the bilateral hips. Risk of radiation including pathologic fracture, bone marrow suppression was discussed with the patient. In addition, she will be considered for systemic chemotherapy under direction of Dr. Sparrow along with pamidronate. JOB# [id number] STEPHANIE/NTS
[2018-12-25 05:51] LABS: Hemoglobin 8.3 gm/dl (10.1-14.3); Mean Corpuscular HGB Conc 33 % (30-34); Mean Corpuscular Volume 77 fl (79-97); Platelet Count 376 K/mm3 (140-440); Red Blood Count 3.27 M/mm3 (3.65-5.03)
[2018-12-25 05:52] LABS: Red Cell Distribution Width 27.6 % (13.2-15.2)
--- NOTE | 2018-12-25 07:32 | Hem/Onc Progress Note ---
Assessment and Plan # colon ca - based on path - with bone - liver mets - stage IV # fracture femurs s/p sx # CT shows ovarian mass CA 125- 251 # pt got pamidronate for the bone mets # XRT consulted # anemia - s/p iv and oral iron # low folate on replacement # History of hypertension. # History of arthritis. d/w pt reg colon being the primary OP follow up for chemo - Patient Problems (1) Anemia Current Visit: Yes Status: Acute Subjective Date of service: 12/25/18 Principal diagnosis: colon ca - with mets Interval history: xrt was consulted Objective - Constitutional Vitals: Last Vital Signs Temp 98.7 F 12/25/18 04:01 Pulse 100 H 12/25/18 04:40 Resp 14 12/25/18 04:01 BP 135/87 12/25/18 04:01 Pulse Ox 95 12/25/18 04:01 Pain Intensity (0-10): 1/10 General appearance: no acute distress Performance status: 3-limited selfcare - EENT Eyes: EOM intact ENT: clear oral mucosa Lymph node exam: negative cervical - Neck Neck: normal ROM - Respiratory Respiratory effort: Positive: normal Respiratory: bilateral: CTA - Cardiovascular Heart Sounds: Present: S1 & S2 Extremities: normal temperature - Gastrointestinal General gastrointestinal: Present: soft, non-tender Rectal Exam: deferred - Genitourinary Female genitourinary: Present: deferred - Integumentary Integumentary: warm - Musculoskeletal Musculoskeletal: generalized weakness - Neurologic Neurologic: moves all extremities - Labs Lab Results: Laboratory Results - last 24 hr 12/20/18 12/22/18 12/25/18 12:54 03:23 04:26 WBC 17.0 H RBC 3.27 L Hgb 8.3 L Hct 25.0 L MCV 77 L MCH 26 L MCHC 33 RDW 27.6 H Plt Count 376 CA 125 Antigen 251 H Crossmatch See Detail Medications & Allergies - Medications Allergies/Adverse Reactions: Allergies No Known Allergies Allergy (Unverified 12/17/18 07:15) Home Medications: Home Medications Medication Instructions Recorded Confirmed Last Taken Type No Known Home Medications [No 12/17/18 12/17/18 Unknown History Reported Home Medications] Active Medications: Generic Name Dose Route Start Last Admin Trade Name Freq PRN Reason Stop Dose Admin Acetaminophen 650 mg 12/17/18 12:10 12/20/18 20:01 Tylenol PO 650 mg Q4H PRN Administration Pain MILD(1-3)/Fever >100.5/WHITAKER Acetaminophen/Hydrocodone Bitart 1 each 12/18/18 15:33 12/22/18 10:16 [place] 5/325 PO 1 each Q6H PRN Administration Pain, Moderate (4-6) Albuterol 2.5 mg 12/17/18 12:10 Proventil IH Q4HRT PRN Shortness Of Breath Amlodipine Besylate 10 mg 12/23/18 14:01 12/24/18 10:47 Norvasc PO 10 mg QDAY DANIELLE Administration Docusate Sodium 100 mg 12/23/18 22:00 12/24/18 22:31 Colace PO 100 mg BID DANIELLE Administration Enoxaparin Sodium 40 mg 12/19/18 10:00 12/24/18 10:48 Lovenox SUB-Q 40 mg QDAY DANIELLE Administration Ferrous Sulfate 325 mg 12/23/18 22:00 12/24/18 22:31 Feosol PO 325 mg BID DANIELLE Administration Folic Acid 1 mg 12/20/18 17:00 12/24/18 10:46 Folvite PO 1 mg QDAY DANIELLE Administration Ceftriaxone Sodium 1 gm in 50 mls @ 100 mls/hr 12/24/18 10:00 12/24/18 10:48 Rocephin/Ns 1 Gm/50 Ml IV 100 mls/hr Q24HR DANIELLE Administration Protocol Metoprolol Tartrate 25 mg 12/17/18 10:00 12/24/18 22:32 Lopressor PO 25 mg BID DANIELLE Administration Morphine Sulfate 2 mg 12/17/18 12:10 12/24/18 17:39 Morphine IV 2 mg Q4H PRN Administration Pain, Moderate (4-6) Morphine Sulfate 4 mg 12/18/18 15:33 12/21/18 11:59 Morphine IV 4 mg Q4H PRN Administration Pain , Severe (7-10) Multivitamins 1 each 12/20/18 17:00 12/24/18 10:46 Theragran Tab PO 1 each QDAY DANIELLE Administration Ondansetron HCl 4 mg 12/17/18 12:10 Zofran IV Q8H PRN Nausea And Vomiting Sodium Chloride 10 ml 12/17/18 22:00 12/24/18 22:32 Sodium Chloride Flush Syringe 10 Ml IV 10 ml BID DANIELLE Administration Sodium Chloride 10 ml 12/17/18 12:10 Sodium Chloride Flush Syringe 10 Ml IV PRN PRN LINE FLUSH
[2018-12-25 07:33] LABS: Band Neutrophils # (Manual) 0.2 K/mm3; Eosinophils % (Manual) 0 % (0.0-4.3); Total Cells Counted 100
[2018-12-25 07:34] LABS: Anisocytosis 2+; Hypochromasia 1+; Macrocytosis 1+
[2018-12-25 07:35] LABS: Large Platelets Few; Platelet Estimate Consistent w Auto
--- NOTE | 2018-12-25 09:02 | XRay Report ---
BILATERAL FEMURS, 2 VIEWS History: Postop evaluation. Findings: Compared to the intraoperative films dated 12/18/18. Internal fixation of bilateral proximal femur fractures has been performed with intramedullary yaniv and femoral neck screw. Alignment appears anatomic at the fracture sites. There is persistent medial displacement of the lesser trochanter in the proximal right femur. Normal articulation of both hips. Impression: Stable appearance of the bilateral femoral surgical changes.
[2018-12-25] MEDS: FEOSOL PO SCH ×2 (09:06→21:04)
[2018-12-25] MEDS: LOPRESSOR PO SCH ×2 (09:06→21:04)
[2018-12-25] MEDS: FOLVITE PO SCH (09:06)
[2018-12-25] MEDS: COLACE PO SCH ×2 (09:06→21:10)
[2018-12-25] MEDS: LOVENOX SUB-Q SCH (09:06)
[2018-12-25] MEDS: ROCEPHIN/NS 1 GM/50 ML 1 GM/50 ML BAG IV SCH (09:06)
[2018-12-25] MEDS: NORVASC PO SCH (09:06)
[2018-12-25] MEDS: THERAGRAN Tab PO SCH (09:06)
[2018-12-25] MEDS: SODIUM CHLORIDE FLUSH SYRINGE 10 ML IV SCH ×2 (09:07→21:07)
[2018-12-25] MEDS: MORPHINE IV PRN ×2 (10:47→20:39)
--- NOTE | 2018-12-25 16:42 | Progress Note ---
Assessment and Plan New metastatic adenocarcinoma, likely colon as primary -Oncology following Bilateral femoral neck fractures, -Status post internal fixation on 12/18/18 -Continue PT Acute on chronic iron def anemia. -s/p transfusion with 1 Unit PRBC on 12/20 -H/H stable -on oral iron tab Pathologic fracture with osteolytic lesions -Continue pain management Abnormal LFT -Likely secondary to metastases Hypertension -fairly controlled -Amlodipine dose increased, will monitor Hypokalemia -Resolved Leukocytosis -Probably reactive from malignancy and UTI -cont abx Severe protein caloric malnutrition -Dietitian consulted Disposition: For discharge when placement available Hospitalist Physical General appearance: Present: no acute distress - EENT Eyes: Present: PERRL, EOM intact ENT: hearing intact, clear oral mucosa - Neck Neck: Present: supple, normal ROM - Respiratory Respiratory effort: normal Respiratory: bilateral: CTA - Cardiovascular Rhythm: regular Heart Sounds: Present: S1 & S2 - Extremities Extremity abnormal: edema (in bilateral lower extremities) - Abdominal General gastrointestinal: soft, non-tender, non-distended, normal bowel sounds - Integumentary Integumentary: Present: clear, warm, dry - Neurologic Neurologic: moves all extremities Subjective Date of service: 12/25/18 Principal diagnosis: colon ca - with mets Interval history: Pt seen and examined Pt complained of leg pain, but tolerating PT discharge pending on placement issue Objective - Constitutional Vitals: Vital Signs - 12hr 12/25/18 12/25/18 12/25/18 08:13 09:06 13:50 Temperature 97.7 F 99.4 F Pulse Rate 111 H 112 H Respiratory 24 20 Rate Blood Pressure 136/96 136/96 133/88 O2 Sat by Pulse 96 95 Oximetry 12/25/18 16:00 Temperature Pulse Rate 113 H Respiratory Rate Blood Pressure O2 Sat by Pulse Oximetry - Labs CBC & Chem 7: 12/26/18 09:00 12/26/18 09:00 Labs: Abnormal lab results 12/22/18 12/25/18 Range/Units 03:23 04:26 WBC 17.0 H (4.5-11.0) K/mm3 RBC 3.27 L (3.65-5.03) M/mm3 Hgb 8.3 L (10.1-14.3) gm/dl Hct 25.0 L (30.3-42.9) % MCV 77 L (79-97) fl MCH 26 L (28-32) pg RDW 27.6 H (13.2-15.2) % Seg Neuts % (Manual) 88.0 H (40.0-70.0) % Lymphocytes % (Manual) 2.0 L (13.4-35.0) % Seg Neutrophils # Man 15.0 H (1.8-7.7) K/mm3 Lymphocytes # (Manual) 0.3 L (1.2-5.4) K/mm3 Monocytes # (Manual) 1.2 H (0.0-0.8) K/mm3 Basophils # (Manual) 0.2 H (0.0-0.1) K/mm3 CA 125 Antigen 251 H (<35) U/mL
[2018-12-25] MEDS: NORCO 5/325 PO PRN (16:57)
[2018-12-26] MEDS: MORPHINE IV PRN ×3 (05:00→19:30)
--- NOTE | 2018-12-26 05:40 | Hem/Onc Progress Note ---
Assessment and Plan # colon ca - based on path - with bone - liver mets - stage IV # fracture femurs s/p sx # CT shows ovarian mass CA 125- 251 # pt got pamidronate for the bone mets # XRT consulted # anemia - s/p iv and oral iron # low folate on replacement # History of hypertension. # History of arthritis. d/w pt reg colon being the primary OP follow up for chemo leg edema - adv leg movements as per pt - s/w working on insurance medicaid - Patient Problems (1) Anemia Current Visit: Yes Status: Acute Subjective Date of service: 12/26/18 Principal diagnosis: colon ca - with bone - liver mets Interval history: pt says - walks with support Objective - Constitutional Vitals: Last Vital Signs Temp 98.0 F 12/26/18 00:04 Pulse 103 H 12/26/18 00:04 Resp 18 12/26/18 05:00 BP 121/82 12/26/18 00:04 Pulse Ox 95 12/26/18 00:04 Pain Intensity (0-10): denies any pain General appearance: no acute distress Performance status: 3-limited selfcare - EENT Eyes: EOM intact ENT: hearing intact, clear oral mucosa Lymph node exam: negative cervical - Neck Neck: normal ROM - Respiratory Respiratory effort: Positive: normal Respiratory: bilateral: CTA - Cardiovascular Heart Sounds: Present: S1 & S2 Extremity abnormal: edema - Gastrointestinal General gastrointestinal: Present: soft, non-tender Rectal Exam: deferred - Genitourinary Female genitourinary: Present: deferred - Integumentary Integumentary: warm - Musculoskeletal Musculoskeletal: generalized weakness - Neurologic Neurologic: moves all extremities - Labs Lab Results: Laboratory Results - last 24 hr 12/25/18 04:26 WBC 17.0 H RBC 3.27 L Hgb 8.3 L Hct 25.0 L MCV 77 L MCH 26 L MCHC 33 RDW 27.6 H Plt Count 376 Add Manual Diff Complete Total Counted 100 Seg Neuts % (Manual) 88.0 H Band Neutrophils % 1.0 Lymphocytes % (Manual) 2.0 L Reactive Lymphs % (Man) 0 Monocytes % (Manual) 7.0 Eosinophils % (Manual) 0 Basophils % (Manual) 1.0 Metamyelocytes % 1.0 Myelocytes % 0 Promyelocytes % 0 Blast Cells % 0 Nucleated RBC % Not Reportable Seg Neutrophils # Man 15.0 H Band Neutrophils # 0.2 Lymphocytes # (Manual) 0.3 L Abs React Lymphs (Man) 0.0 Monocytes # (Manual) 1.2 H Eosinophils # (Manual) 0.0 Basophils # (Manual) 0.2 H Metamyelocytes # 0.2 Myelocytes # 0.0 Promyelocytes # 0.0 Blast Cells # 0.0 WBC Morphology Not Reportable Hypersegmented Neuts Not Reportable Hyposegmented Neuts Not Reportable Hypogranular Neuts Not Reportable Smudge Cells Not Reportable Toxic Granulation Not Reportable Toxic Vacuolation Not Reportable Dohle Bodies Not Reportable Pelger-Huet Anomaly Not Reportable Natalee Rods Not Reportable Platelet Estimate Consistent w auto Clumped Platelets Not Reportable Plt Clumps, EDTA Not Reportable Large Platelets Few Giant Platelets Not Reportable Platelet Satelliting Not Reportable Plt Morphology Comment Not Reportable RBC Morphology Not Reportable Dimorphic RBCs Not Reportable Polychromasia Few Hypochromasia 1+ Poikilocytosis Not Reportable Anisocytosis 2+ Microcytosis 1+ Macrocytosis 1+ Spherocytes Not Reportable Pappenheimer Bodies Not Reportable Sickle Cells Not Reportable Target Cells Not Reportable Tear Drop Cells Not Reportable Ovalocytes Not Reportable Helmet Cells Not Reportable [place] Bodies Not Reportable [place] Rings Not Reportable [place] Cells Not Reportable Bite Cells Not Reportable Crenated Cell Not Reportable Elliptocytes Not Reportable Acanthocytes (Spur) Not Reportable Rouleaux Not Reportable Hemoglobin C Crystals Not Reportable Schistocytes Not Reportable Malaria parasites Not Reportable [place] Bodies Not Reportable Hem Pathologist Commnt No Medications & Allergies - Medications Allergies/Adverse Reactions: Allergies No Known Allergies Allergy (Unverified 12/17/18 07:15) Home Medications: Home Medications Medication Instructions Recorded Confirmed Last Taken Type No Known Home Medications [No 12/17/18 12/17/18 Unknown History Reported Home Medications] Active Medications: Generic Name Dose Route Start Last Admin Trade Name Freq PRN Reason Stop Dose Admin Acetaminophen 650 mg 12/17/18 12:10 12/20/18 20:01 Tylenol PO 650 mg Q4H PRN Administration Pain MILD(1-3)/Fever >100.5/WHITAKER Acetaminophen/Hydrocodone Bitart 1 each 12/18/18 15:33 12/25/18 16:57 [place] 5/325 PO 1 each Q6H PRN Administration Pain, Moderate (4-6) Albuterol 2.5 mg 12/17/18 12:10 Proventil IH Q4HRT PRN Shortness Of Breath Amlodipine Besylate 10 mg 12/23/18 14:01 12/25/18 09:06 Norvasc PO 10 mg QDAY DANIELLE Administration Docusate Sodium 100 mg 12/23/18 22:00 12/25/18 21:10 Colace PO 100 mg BID DANIELLE Administration Enoxaparin Sodium 40 mg 12/19/18 10:00 12/25/18 09:06 Lovenox SUB-Q 40 mg QDAY DANIELLE Administration Ferrous Sulfate 325 mg 12/23/18 22:00 12/25/18 21:04 Feosol PO 325 mg BID DANIELLE Administration Folic Acid 1 mg 12/20/18 17:00 12/25/18 09:06 Folvite PO 1 mg QDAY DANIELLE Administration Ceftriaxone Sodium 1 gm in 50 mls @ 100 mls/hr 12/24/18 10:00 12/25/18 09:06 Rocephin/Ns 1 Gm/50 Ml IV 100 mls/hr Q24HR DANIELLE Administration Protocol Metoprolol Tartrate 25 mg 12/17/18 10:00 12/25/18 21:04 Lopressor PO 25 mg BID DANIELLE Administration Morphine Sulfate 2 mg 12/17/18 12:10 12/26/18 05:00 Morphine IV 2 mg Q4H PRN Administration Pain, Moderate (4-6) Morphine Sulfate 4 mg 12/18/18 15:33 12/21/18 11:59 Morphine IV 4 mg Q4H PRN Administration Pain , Severe (7-10) Multivitamins 1 each 12/20/18 17:00 12/25/18 09:06 Theragran Tab PO 1 each QDAY DANIELLE Administration Ondansetron HCl 4 mg 12/17/18 12:10 Zofran IV Q8H PRN Nausea And Vomiting Sodium Chloride 10 ml 12/17/18 22:00 12/25/18 21:07 Sodium Chloride Flush Syringe 10 Ml IV 10 ml BID DANIELLE Administration Sodium Chloride 10 ml 12/17/18 12:10 Sodium Chloride Flush Syringe 10 Ml IV PRN PRN LINE FLUSH
[2018-12-26] MEDS: NORCO 5/325 PO PRN ×3 (06:07→18:09)
[2018-12-26] MEDS: LOVENOX SUB-Q SCH (09:18)
[2018-12-26] MEDS: LOPRESSOR PO SCH ×2 (09:18→21:06)
[2018-12-26] MEDS: NORVASC PO SCH (09:18)
[2018-12-26] MEDS: ROCEPHIN/NS 1 GM/50 ML 1 GM/50 ML BAG IV SCH (09:18)
[2018-12-26] MEDS: FEOSOL PO SCH ×2 (09:18→21:06)
[2018-12-26] MEDS: THERAGRAN Tab PO SCH (09:18)
[2018-12-26] MEDS: COLACE PO SCH ×2 (09:18→21:06)
[2018-12-26 10:06] LABS: Hematocrit 28.6 % (30.3-42.9); Mean Corpuscular HGB Conc 32 % (30-34); Mean Corpuscular Volume 79 fl (79-97); Platelet Count 457 K/mm3 (140-440); Red Blood Count 3.64 M/mm3 (3.65-5.03)
[2018-12-26 10:26] LABS: BUN/Creatinine Ratio 20; Blood Urea Nitrogen 4 mg/dL (7-17); Calcium 7.3 mg/dL (8.4-10.2); Hemolysis Index 2
[2018-12-26] MEDS: SODIUM CHLORIDE FLUSH SYRINGE 10 ML IV SCH ×2 (11:54→21:07)
[2018-12-26] MEDS: FOLVITE PO SCH (11:54)
--- NOTE | 2018-12-26 15:01 | Progress Note ---
Assessment and Plan New metastatic adenocarcinoma, likely colon as primary -Oncology following Bilateral femoral neck fractures, -Status post internal fixation on 12/18/18 -Continue PT, family requesting placement Acute on chronic iron def anemia. -s/p transfusion with 1 Unit PRBC on 12/20 -H/H stable -on oral iron tab Pathologic fracture with osteolytic lesions -Continue pain management Abnormal LFT -Likely secondary to metastases Hypertension -fairly controlled -Amlodipine dose increased, will monitor Hypokalemia -Resolved Leukocytosis -Probably reactive from malignancy and UTI -cont abx Severe protein caloric malnutrition -Dietitian consulted Disposition: For discharge when placement available Hospitalist Physical General appearance: Present: no acute distress - EENT Eyes: Present: PERRL, EOM intact ENT: hearing intact, clear oral mucosa - Neck Neck: Present: supple, normal ROM - Respiratory Respiratory effort: normal Respiratory: bilateral: CTA - Cardiovascular Rhythm: regular Heart Sounds: Present: S1 & S2 - Extremities Extremity abnormal: edema (in bilateral lower extremities) - Abdominal General gastrointestinal: soft, non-tender, non-distended, normal bowel sounds - Integumentary Integumentary: Present: clear, warm, dry - Neurologic Neurologic: moves all extremities Subjective Date of service: 12/26/18 Principal diagnosis: colon ca - with mets Interval history: Pt seen and examined Pt complained of leg pain, but tolerating PT discharge pending on placement issue Objective - Constitutional Vitals: Vital Signs - 12hr 12/26/18 12/26/18 12/26/18 04:09 05:00 05:30 Temperature 98.0 F Pulse Rate 112 H Respiratory 20 18 18 Rate Blood Pressure 121/83 O2 Sat by Pulse 94 Oximetry 12/26/18 12/26/18 12/26/18 06:07 07:07 07:29 Temperature 97.9 F Pulse Rate 106 H Respiratory 18 18 18 Rate Blood Pressure 113/83 O2 Sat by Pulse 93 Oximetry - Labs CBC & Chem 7: 12/26/18 09:00 12/26/18 09:00 Labs: Abnormal lab results 12/26/18 12/26/18 Range/Units 09:00 09:00 WBC 16.6 H (4.5-11.0) K/mm3 RBC 3.64 L (3.65-5.03) M/mm3 Hgb 9.0 L (10.1-14.3) gm/dl Hct 28.6 L (30.3-42.9) % MCH 25 L (28-32) pg RDW 28.0 H (13.2-15.2) % Plt Count 457 H (140-440) K/mm3 BUN 4 L (7-17) mg/dL Creatinine 0.2 L (0.7-1.2) mg/dL Calcium 7.3 L (8.4-10.2) mg/dL
[2018-12-27] MEDS: NORCO 5/325 PO PRN ×4 (01:52→23:48)
[2018-12-27] MEDS: COLACE PO SCH ×2 (09:50→22:42)
[2018-12-27] MEDS: FOLVITE PO SCH (09:50)
[2018-12-27] MEDS: THERAGRAN Tab PO SCH (09:50)
[2018-12-27] MEDS: NORVASC PO SCH (09:51)
[2018-12-27] MEDS: ROCEPHIN/NS 1 GM/50 ML 1 GM/50 ML BAG IV SCH (09:52)
[2018-12-27] MEDS: LOVENOX SUB-Q SCH (09:52)
[2018-12-27] MEDS: LOPRESSOR PO SCH ×2 (09:52→22:42)
[2018-12-27] MEDS: SODIUM CHLORIDE FLUSH SYRINGE 10 ML IV SCH ×2 (09:53→22:43)
[2018-12-27] MEDS: FEOSOL PO SCH ×2 (10:11→22:42)
--- NOTE | 2018-12-27 11:24 | Hem/Onc Progress Note ---
Assessment and Plan # colon ca - based on path - with bone - liver mets - stage IV 12/27/2018 # fracture femurs s/p sx # CT shows ovarian mass CA 125- 251 # pt got pamidronate for the bone mets # XRT consulted # anemia - s/p iv and oral iron # low folate on replacement # History of hypertension. # History of arthritis. d/w pt reg colon being the primary OP follow up for chemo leg edema - adv leg movements as per pt - s/w working on insurance medicaid 12/27 - d/w son leg edema adv elevation and exercise - Patient Problems (1) Anemia Current Visit: Yes Status: Acute Subjective Date of service: 12/27/18 Principal diagnosis: colorectal ca with liver and bone mets Interval history: leg edema Objective - Constitutional Vitals: Last Vital Signs Temp 97.9 F 12/27/18 07:56 Pulse 112 H 12/27/18 09:52 Resp 18 12/27/18 07:56 BP 121/83 12/27/18 09:52 Pulse Ox 94 12/27/18 07:56 Pain Intensity (0-10): denies any pain General appearance: no acute distress Performance status: 3-limited selfcare - EENT Eyes: EOM intact ENT: clear oral mucosa Lymph node exam: negative cervical - Neck Neck: normal ROM - Respiratory Respiratory effort: Positive: normal Respiratory: bilateral: CTA - Cardiovascular Heart Sounds: Present: S1 & S2 Extremity abnormal: edema - Gastrointestinal General gastrointestinal: Present: soft Rectal Exam: deferred - Genitourinary Female genitourinary: Present: deferred - Integumentary Integumentary: warm - Musculoskeletal Musculoskeletal: other (leg weak - post sx) - Neurologic Neurologic: other (alert awake) Medications & Allergies - Medications Allergies/Adverse Reactions: Allergies No Known Allergies Allergy (Unverified 12/17/18 07:15) Home Medications: Home Medications Medication Instructions Recorded Confirmed Last Taken Type No Known Home Medications [No 12/17/18 12/17/18 Unknown History Reported Home Medications] Active Medications: Generic Name Dose Route Start Last Admin Trade Name Freq PRN Reason Stop Dose Admin Acetaminophen 650 mg 12/17/18 12:10 12/20/18 20:01 Tylenol PO 650 mg Q4H PRN Administration Pain MILD(1-3)/Fever >100.5/WHITAKER Acetaminophen/Hydrocodone Bitart 1 each 12/18/18 15:33 12/27/18 10:11 [place] 5/325 PO 1 each Q6H PRN Administration Pain, Moderate (4-6) Albuterol 2.5 mg 12/17/18 12:10 Proventil IH Q4HRT PRN Shortness Of Breath Amlodipine Besylate 10 mg 12/23/18 14:01 12/27/18 09:51 Norvasc PO 10 mg QDAY DANIELLE Administration Docusate Sodium 100 mg 12/23/18 22:00 12/27/18 09:50 Colace PO 100 mg BID DANIELLE Administration Enoxaparin Sodium 40 mg 12/19/18 10:00 12/27/18 09:52 Lovenox SUB-Q 40 mg QDAY DANIELLE Administration Ferrous Sulfate 325 mg 12/23/18 22:00 12/27/18 10:11 Feosol PO 325 mg BID DANIELLE Administration Folic Acid 1 mg 12/20/18 17:00 12/27/18 09:50 Folvite PO 1 mg QDAY DANIELLE Administration Ceftriaxone Sodium 1 gm in 50 mls @ 100 mls/hr 12/24/18 10:00 12/27/18 09:52 Rocephin/Ns 1 Gm/50 Ml IV 100 mls/hr Q24HR DANIELLE Administration Protocol Metoprolol Tartrate 25 mg 12/17/18 10:00 12/27/18 09:52 Lopressor PO 25 mg BID DANIELLE Administration Morphine Sulfate 2 mg 12/17/18 12:10 12/26/18 19:30 Morphine IV 2 mg Q4H PRN Administration Pain, Moderate (4-6) Morphine Sulfate 4 mg 12/18/18 15:33 12/21/18 11:59 Morphine IV 4 mg Q4H PRN Administration Pain , Severe (7-10) Multivitamins 1 each 12/20/18 17:00 12/27/18 09:50 Theragran Tab PO 1 each QDAY DANIELLE Administration Ondansetron HCl 4 mg 12/17/18 12:10 Zofran IV Q8H PRN Nausea And Vomiting Sodium Chloride 10 ml 12/17/18 22:00 12/27/18 09:53 Sodium Chloride Flush Syringe 10 Ml IV 10 ml BID DANIELLE Administration Sodium Chloride 10 ml 12/17/18 12:10 Sodium Chloride Flush Syringe 10 Ml IV PRN PRN LINE FLUSH
[2018-12-28] MEDS: NORCO 5/325 PO PRN ×3 (06:05→22:01)
--- NOTE | 2018-12-28 11:38 | Progress Note ---
Assessment and Plan New metastatic adenocarcinoma, likely colon as primary -Oncology following Bilateral femoral neck fractures, -Status post internal fixation on 12/18/18 -Continue PT, family requesting placement Acute on chronic iron def anemia. -s/p transfusion with 1 Unit PRBC on 12/20 -H/H stable -on oral iron tab Pathologic fracture with osteolytic lesions -Continue pain management Abnormal LFT -Likely secondary to metastases Hypertension -fairly controlled -Amlodipine dose increased, will monitor Hypokalemia -Resolved Leukocytosis -Probably reactive from malignancy and UTI -cont abx Severe protein caloric malnutrition -Dietitian consulted Disposition: For discharge when placement available Hospitalist Physical General appearance: Present: no acute distress - EENT Eyes: Present: PERRL, EOM intact ENT: hearing intact, clear oral mucosa - Neck Neck: Present: supple, normal ROM - Respiratory Respiratory effort: normal Respiratory: bilateral: CTA - Cardiovascular Rhythm: regular Heart Sounds: Present: S1 & S2 - Extremities Extremity abnormal: edema (in bilateral lower extremities) - Abdominal General gastrointestinal: soft, non-tender, non-distended, normal bowel sounds - Integumentary Integumentary: Present: clear, warm, dry - Neurologic Neurologic: moves all extremities Subjective Date of service: 12/28/18 Principal diagnosis: colorectal ca with liver and bone mets Interval history: Pt seen and examined Pt complained of leg pain, but tolerating PT discharge pending on placement issue Objective - Constitutional Vitals: Vital Signs - 12hr 12/27/18 12/27/18 12/28/18 23:48 23:50 00:48 Temperature Pulse Rate Respiratory 18 18 Rate Respiratory 18 Rate [Bilateral Hip] Blood Pressure O2 Sat by Pulse Oximetry 12/28/18 12/28/18 12/28/18 04:29 06:05 07:05 Temperature 98.2 F Pulse Rate 97 H Respiratory 14 18 18 Rate Respiratory Rate [Bilateral Hip] Blood Pressure 116/80 O2 Sat by Pulse 95 Oximetry - Labs CBC & Chem 7: 12/26/18 09:00 12/26/18 09:00
[2018-12-28] MEDS: THERAGRAN Tab PO SCH (12:24)
[2018-12-28] MEDS: LOVENOX SUB-Q SCH (12:24)
[2018-12-28] MEDS: COLACE PO SCH ×2 (12:25→22:02)
[2018-12-28] MEDS: FEOSOL PO SCH ×2 (12:26→22:01)
[2018-12-28] MEDS: FOLVITE PO SCH (12:26)
[2018-12-28] MEDS: NORVASC PO SCH (12:26)
[2018-12-28] MEDS: LOPRESSOR PO SCH ×2 (12:27→22:01)
[2018-12-28] MEDS: SODIUM CHLORIDE FLUSH SYRINGE 10 ML IV SCH ×2 (12:27→22:02)
[2018-12-28] MEDS: ROCEPHIN/NS 1 GM/50 ML 1 GM/50 ML BAG IV SCH (12:35)
[2018-12-28] MEDS: MORPHINE IV PRN (15:40)
[2018-12-29] MEDS: NORCO 5/325 PO PRN ×2 (03:52→18:16)
[2018-12-29] MEDS: MORPHINE IV PRN ×2 (06:28→13:27)
--- NOTE | 2018-12-29 07:23 | Hem/Onc Progress Note ---
Assessment and Plan # colon ca - based on path - with bone - liver mets - stage IV - 12/29/2018 # fracture femurs s/p sx # CT shows ovarian mass and CA 125- 251 # pt got pamidronate for the bone mets # XRT consulted # anemia - s/p iv and oral iron # low folate on replacement # History of hypertension. # History of arthritis. d/w pt reg colon being the primary OP follow up for chemo as per pt - s/w working on insurance medicaid 12/29 - d/w son leg edema adv elevation and exercise d/w dr lackey and pt reg port eval pt wants to try chemo placement being looked into - Patient Problems (1) Anemia Current Visit: Yes Status: Acute Subjective Date of service: 12/29/18 Principal diagnosis: colon ca Interval history: leg edema Objective - Constitutional Vitals: Last Vital Signs Temp 99.0 F 12/29/18 00:07 Pulse 100 H 12/29/18 00:07 Resp 18 12/29/18 06:58 BP 126/85 12/29/18 00:07 Pulse Ox 94 12/29/18 00:07 Pain Intensity (0-10): denies any pain General appearance: no acute distress Performance status: 3-limited selfcare - EENT Eyes: EOM intact ENT: hearing intact Lymph node exam: negative cervical - Neck Neck: normal ROM - Respiratory Respiratory effort: Positive: normal Respiratory: bilateral: CTA - Cardiovascular Heart Sounds: Present: S1 & S2 Extremity abnormal: edema - Gastrointestinal General gastrointestinal: Present: soft, non-tender Rectal Exam: deferred - Genitourinary Female genitourinary: Present: deferred - Integumentary Integumentary: warm - Musculoskeletal Musculoskeletal: generalized weakness - Neurologic Neurologic: moves all extremities - Labs Lab Results: Laboratory Results - last 24 hr 12/28/18 22:18 POC Glucose 55 L Medications & Allergies - Medications Allergies/Adverse Reactions: Allergies No Known Allergies Allergy (Unverified 12/17/18 07:15) Home Medications: Home Medications Medication Instructions Recorded Confirmed Last Taken Type No Known Home Medications [No 12/17/18 12/17/18 Unknown History Reported Home Medications] Active Medications: Generic Name Dose Route Start Last Admin Trade Name Freq PRN Reason Stop Dose Admin Acetaminophen 650 mg 12/17/18 12:10 12/20/18 20:01 Tylenol PO 650 mg Q4H PRN Administration Pain MILD(1-3)/Fever >100.5/WHITAKER Acetaminophen/Hydrocodone Bitart 1 each 12/18/18 15:33 12/29/18 03:52 [place] 5/325 PO 1 each Q6H PRN Administration Pain, Moderate (4-6) Albuterol 2.5 mg 12/17/18 12:10 Proventil IH Q4HRT PRN Shortness Of Breath Amlodipine Besylate 10 mg 12/23/18 14:01 12/28/18 12:26 Norvasc PO 10 mg QDAY DANIELLE Administration Docusate Sodium 100 mg 12/23/18 22:00 12/28/18 22:02 Colace PO 100 mg BID DANIELLE Administration Enoxaparin Sodium 40 mg 12/19/18 10:00 12/28/18 12:24 Lovenox SUB-Q 40 mg QDAY DANIELLE Administration Ferrous Sulfate 325 mg 12/23/18 22:00 12/28/18 22:01 Feosol PO 325 mg BID DANIELLE Administration Folic Acid 1 mg 12/20/18 17:00 12/28/18 12:26 Folvite PO 1 mg QDAY DANIELLE Administration Ceftriaxone Sodium 1 gm in 50 mls @ 100 mls/hr 12/24/18 10:00 12/28/18 12:35 Rocephin/Ns 1 Gm/50 Ml IV 100 mls/hr Q24HR DANIELLE Administration Protocol Metoprolol Tartrate 25 mg 12/17/18 10:00 12/28/18 22:01 Lopressor PO 25 mg BID DANIELLE Administration Morphine Sulfate 2 mg 12/17/18 12:10 12/29/18 06:28 Morphine IV 2 mg Q4H PRN Administration Pain, Moderate (4-6) Morphine Sulfate 4 mg 12/18/18 15:33 12/21/18 11:59 Morphine IV 4 mg Q4H PRN Administration Pain , Severe (7-10) Multivitamins 1 each 12/20/18 17:00 12/28/18 12:24 Theragran Tab PO 1 each QDAY DANIELLE Administration Ondansetron HCl 4 mg 12/17/18 12:10 Zofran IV Q8H PRN Nausea And Vomiting Sodium Chloride 10 ml 12/17/18 22:00 12/28/18 22:02 Sodium Chloride Flush Syringe 10 Ml IV 10 ml BID DANIELLE Administration Sodium Chloride 10 ml 12/17/18 12:10 Sodium Chloride Flush Syringe 10 Ml IV PRN PRN LINE FLUSH
[2018-12-29] MEDS: COLACE PO SCH ×2 (09:37→22:03)
[2018-12-29] MEDS: LOPRESSOR PO SCH ×2 (09:37→22:03)
[2018-12-29] MEDS: FEOSOL PO SCH ×2 (09:37→22:03)
[2018-12-29] MEDS: FOLVITE PO SCH (09:37)
[2018-12-29] MEDS: THERAGRAN Tab PO SCH (09:37)
[2018-12-29] MEDS: LOVENOX SUB-Q SCH (09:37)
[2018-12-29] MEDS: ROCEPHIN/NS 1 GM/50 ML 1 GM/50 ML BAG IV SCH (09:38)
[2018-12-29] MEDS: NORVASC PO SCH (09:38)
[2018-12-29] MEDS: SODIUM CHLORIDE FLUSH SYRINGE 10 ML IV SCH ×2 (09:49→22:04)
[2018-12-29] MEDS: PROTONIX IV SCH (10:54)
[2018-12-29 11:31] LABS: Hematocrit 27.9 % (30.3-42.9); Mean Corpuscular HGB Conc 32 % (30-34); Mean Corpuscular Volume 78 fl (79-97); Platelet Count 536 K/mm3 (140-440); Red Blood Count 3.56 M/mm3 (3.65-5.03)
[2018-12-29 11:39] LABS: Red Cell Distribution Width 28.5 % (13.2-15.2)
[2018-12-29 11:52] LABS: BUN/Creatinine Ratio 20; Blood Urea Nitrogen 4 mg/dL (7-17); Calcium 7.1 mg/dL (8.4-10.2); Hemolysis Index 12
--- NOTE | 2018-12-29 17:08 | Progress Note ---
Assessment and Plan New metastatic adenocarcinoma, likely colon as primary -Oncology following Bilateral femoral neck fractures, -Status post internal fixation on 12/18/18 -Continue PT, family requesting placement Acute on chronic iron def anemia. -s/p transfusion with 1 Unit PRBC on 12/20 -H/H stable -on oral iron tab Pathologic fracture with osteolytic lesions -Continue pain management Abnormal LFT -Likely secondary to metastases Hypertension -fairly controlled -Amlodipine dose increased, will monitor Hypokalemia -Resolved Leukocytosis -Probably reactive from malignancy and UTI -cont abx with rocephin Severe protein caloric malnutrition -Dietitian consulted Disposition: For discharge when placement available Brief history: 63 y/o female with c/o bilateral hip pain with fall...Seen in the ED at [facility] where xrays taken show pathologic fx left hip and displaced right intertroch fracture... Further workup showed metastatic colon cancer. Status post internal fixation on 12/18/18. Now waiting on placement, GS consulted for PORT placement for chemo. Hospitalist Physical General appearance: Present: no acute distress - EENT Eyes: Present: PERRL, EOM intact ENT: hearing intact, clear oral mucosa - Neck Neck: Present: supple, normal ROM - Respiratory Respiratory effort: normal Respiratory: bilateral: CTA - Cardiovascular Rhythm: regular Heart Sounds: Present: S1 & S2 - Extremities Extremity abnormal: edema (in bilateral lower extremities) - Abdominal General gastrointestinal: soft, non-tender, non-distended, normal bowel sounds - Integumentary Integumentary: Present: clear, warm, dry - Neurologic Neurologic: moves all extremities Subjective Date of service: 12/29/18 Principal diagnosis: colorectal ca with liver and bone mets Interval history: Pt seen and examined Pt complained of leg pain, but tolerating PT discharge pending on placement issue Objective - Constitutional Vitals: Vital Signs - 12hr 12/29/18 12/29/18 12/29/18 06:28 06:58 07:27 Temperature 98.3 F Pulse Rate 98 H Respiratory 18 18 14 Rate Blood Pressure 108/78 O2 Sat by Pulse 95 Oximetry 12/29/18 12/29/18 12/29/18 09:37 09:38 14:00 Temperature 99.1 F Pulse Rate 110 H 110 H 123 H Respiratory 16 Rate Blood Pressure 109/77 109/77 108/78 O2 Sat by Pulse 97 Oximetry 12/29/18 16:08 Temperature 99.5 F Pulse Rate 119 H Respiratory 14 Rate Blood Pressure 122/80 O2 Sat by Pulse 96 Oximetry - Labs CBC & Chem 7: 12/29/18 11:19 12/29/18 11:19 Labs: Abnormal lab results 12/28/18 12/29/18 12/29/18 Range/Units 22:18 07:30 11:19 WBC 17.3 H (4.5-11.0) K/mm3 RBC 3.56 L (3.65-5.03) M/mm3 Hgb 9.0 L (10.1-14.3) gm/dl Hct 27.9 L (30.3-42.9) % MCV 78 L (79-97) fl MCH 25 L (28-32) pg RDW 28.5 H (13.2-15.2) % Plt Count 536 H (140-440) K/mm3 BUN (7-17) mg/dL Creatinine (0.7-1.2) mg/dL Glucose (65-100) mg/dL POC Glucose 55 L 64 L (70-105) Calcium (8.4-10.2) mg/dL 12/29/18 12/29/18 Range/Units 11:19 12:02 WBC (4.5-11.0) K/mm3 RBC (3.65-5.03) M/mm3 Hgb (10.1-14.3) gm/dl Hct (30.3-42.9) % MCV (79-97) fl MCH (28-32) pg RDW (13.2-15.2) % Plt Count (140-440) K/mm3 BUN 4 L (7-17) mg/dL Creatinine 0.2 L (0.7-1.2) mg/dL Glucose 138 H (65-100) mg/dL POC Glucose 119 H (70-105) Calcium 7.1 L (8.4-10.2) mg/dL
--- NOTE | 2018-12-29 18:50 | Consultation ---
History of Present Illness Consult date: 12/29/18 Reason for consult: other (port placement) Requesting physician: RAGHAV THORNE Chief complaint: bilateral hip fractures - History of present illness History of present illness: 63yo F with recent diagnosis of metastatic cancer. Pt in need of port placement for chemo. Pt denies any prior surgeries, trauma, infection to the neck and upper chest area. Past History Past Medical History: anemia, hypertension Past Surgical History: No surgical history Social history: lives with family, full code. denies: smoking, alcohol abuse Family history: diabetes Medications and Allergies Allergies Allergy/AdvReac Type Severity Reaction Status Date / Time No Known Allergies Allergy Unverified 12/17/18 07:15 Home Medications Medication Instructions Recorded Confirmed Last Taken Type No Known Home Medications [No 12/17/18 12/17/18 Unknown History Reported Home Medications] Active Meds: Active Medications Acetaminophen (Tylenol) 650 mg PO Q4H PRN PRN Reason: Pain MILD(1-3)/Fever >100.5/WHITAKER Last Admin: 12/20/18 20:01 Dose: 650 mg Documented by: Acetaminophen/Hydrocodone Bitart ([place] 5/325) 1 each PO Q6H PRN PRN Reason: Pain, Moderate (4-6) Last Admin: 12/29/18 18:16 Dose: 1 each Documented by: Albuterol (Proventil) 2.5 mg IH Q4HRT PRN PRN Reason: Shortness Of Breath Amlodipine Besylate (Norvasc) 10 mg PO QDAY [facility] Last Admin: 12/29/18 09:38 Dose: 10 mg Documented by: Docusate Sodium (Colace) 100 mg PO BID [facility] Last Admin: 12/29/18 09:37 Dose: 100 mg Documented by: Enoxaparin Sodium (Lovenox) 40 mg SUB-Q QDAY [facility] Last Admin: 12/29/18 09:37 Dose: 40 mg Documented by: Ferrous Sulfate (Feosol) 325 mg PO BID [facility] Last Admin: 12/29/18 09:37 Dose: 325 mg Documented by: Folic Acid (Folvite) 1 mg PO QDAY [facility] Last Admin: 12/29/18 09:37 Dose: 1 mg Documented by: Ceftriaxone Sodium (Rocephin/Ns 1 Gm/50 Ml) 1 gm in 50 mls @ 100 mls/hr IV Q24HR [facility]; Protocol Last Admin: 12/29/18 09:38 Dose: 100 mls/hr Documented by: Metoprolol Tartrate (Lopressor) 25 mg PO BID [facility] Last Admin: 12/29/18 09:37 Dose: 25 mg Documented by: Morphine Sulfate (Morphine) 2 mg IV Q4H PRN PRN Reason: Pain, Moderate (4-6) Last Admin: 12/29/18 06:28 Dose: 2 mg Documented by: Morphine Sulfate (Morphine) 4 mg IV Q4H PRN PRN Reason: Pain , Severe (7-10) Last Admin: 12/29/18 13:27 Dose: 4 mg Documented by: Multivitamins (Theragran Tab) 1 each PO QDAY [facility] Last Admin: 12/29/18 09:37 Dose: 1 each Documented by: Ondansetron HCl (Zofran) 4 mg IV Q8H PRN PRN Reason: Nausea And Vomiting Pantoprazole Sodium (Protonix) 40 mg IV QDAY [facility] Last Admin: 12/29/18 10:54 Dose: 40 mg Documented by: Sodium Chloride (Sodium Chloride Flush Syringe 10 Ml) 10 ml IV BID [facility] Last Admin: 12/29/18 09:49 Dose: 10 ml Documented by: Sodium Chloride (Sodium Chloride Flush Syringe 10 Ml) 10 ml IV PRN PRN PRN Reason: LINE FLUSH Review of Systems - Constitutional no fever, no chills - EENT Ears, nose, mouth and throat: no pain front of neck, no neck fullness/pressure, no neck lump - Cardiovascular no chest pain - Integumentary no rash, no pruritis, no redness, no sores, no wounds Exam Vital Signs Temp Pulse Resp BP Pulse Ox 98.5 F 124 H 18 162/106 100 12/17/18 07:11 12/17/18 07:11 12/17/18 07:11 12/17/18 07:11 12/17/18 07:11 - General physical appearance Positive: no distress, no pain, other (very thin, elderly woman. Pleasant) - Eyes Positive: normal occular movement - Neck Positive: no masses, no bruits, trachea midline, no venous distension, other (no prior incisions) - Respiratory Positive: normal expansion, normal respiratory effort, clear to auscultation - Cardiovascular Rhythm: other (regular with extra beats) - Integumentary no rash, no growths, no abnormal pigmentation, other (normal neck and upper chest area) - Neurologic Neurologic: alert and oriented to time, place and person - Psychiatric Psychiatric: appropriate mood/affect, intact judgment & insight Results - Labs 12/29/18 11:19 12/29/18 11:19 Abnormal lab results 12/28/18 12/29/18 12/29/18 Range/Units 22:18 07:30 11:19 WBC 17.3 H (4.5-11.0) K/mm3 RBC 3.56 L (3.65-5.03) M/mm3 Hgb 9.0 L (10.1-14.3) gm/dl Hct 27.9 L (30.3-42.9) % MCV 78 L (79-97) fl MCH 25 L (28-32) pg RDW 28.5 H (13.2-15.2) % Plt Count 536 H (140-440) K/mm3 BUN (7-17) mg/dL Creatinine (0.7-1.2) mg/dL Glucose (65-100) mg/dL POC Glucose 55 L 64 L (70-105) Calcium (8.4-10.2) mg/dL 12/29/18 12/29/18 Range/Units 11: 12:02 WBC (4.5-11.0) K/mm3 RBC (3.65-5.03) M/mm3 Hgb (10.1-14.3) gm/dl Hct (30.3-42.9) % MCV (79-97) fl MCH (28-32) pg RDW (13.2-15.2) % Plt Count (140-440) K/mm3 BUN 4 L (7-17) mg/dL Creatinine 0.2 L (0.7-1.2) mg/dL Glucose 138 H (65-100) mg/dL POC Glucose 119 H (70-105) Calcium 7.1 L (8.4-10.2) mg/dL Diabetes panel 12/29/18 Range/Units 11:19 Sodium 139 (137-145) mmol/L Potassium 3.8 (3.6-5.0) mmol/L Chloride 103.1 (98-107) mmol/L Carbon Dioxide 24 (22-30) mmol/L BUN 4 L (7-17) mg/dL Creatinine 0.2 L (0.7-1.2) mg/dL Glucose 138 H (65-100) mg/dL Calcium 7.1 L (8.4-10.2) mg/dL Calcium panel 12/29/18 Range/Units 11:19 Calcium 7.1 L (8.4-10.2) mg/dL Pituitary panel 12/29/18 Range/Units 11:19 Sodium 139 (137-145) mmol/L Potassium 3.8 (3.6-5.0) mmol/L Chloride 103.1 (98-107) mmol/L Carbon Dioxide 24 (22-30) mmol/L BUN 4 L (7-17) mg/dL Creatinine 0.2 L (0.7-1.2) mg/dL Glucose 138 H (65-100) mg/dL Calcium 7.1 L (8.4-10.2) mg/dL Adrenal panel 12/29/18 Range/Units 11:19 Sodium 139 (137-145) mmol/L Potassium 3.8 (3.6-5.0) mmol/L Chloride 103.1 (98-107) mmol/L Carbon Dioxide 24 (22-30) mmol/L BUN 4 L (7-17) mg/dL Creatinine 0.2 L (0.7-1.2) mg/dL Glucose 138 H (65-100) mg/dL Calcium 7.1 L (8.4-10.2) mg/dL Assessment and Plan - Patient Problems (1) Metastatic adenocarcinoma Current Visit: Yes Status: Acute Plan to address problem: Pt is stable. Appropriate candidate for port placement. Procedure, risks, benefits were discussed. All questions were answered. Patient would like to sp eak with family before making any decisions. Will follow-up tomorrow. Please call with questions. Time=30min
[2018-12-29] MEDS: TYLENOL PO PRN (20:17)
[2018-12-30] MEDS: NORCO 5/325 PO PRN (05:18)
[2018-12-30 05:53] LABS: Bilirubin,Urine NEG (Negative); Blood,Urine NEG (Negative); Color,Urine Yellow (Yellow); Protein,Urine <15 mg/dL mg/dL (Negative)
[2018-12-30] MEDS: THERAGRAN Tab PO SCH (09:33)
[2018-12-30] MEDS: NORVASC PO SCH (09:33)
[2018-12-30] MEDS: FEOSOL PO SCH (09:33)
[2018-12-30] MEDS: LOVENOX SUB-Q SCH (09:34)
[2018-12-30] MEDS: COLACE PO SCH (09:35)
[2018-12-30] MEDS: LOPRESSOR PO SCH (09:35)
[2018-12-30] MEDS: FOLVITE PO SCH (09:35)
[2018-12-30] MEDS: SODIUM CHLORIDE FLUSH SYRINGE 10 ML IV SCH (09:36)
[2018-12-30] MEDS: PROTONIX IV SCH (09:36)
[2018-12-30] MEDS: ROCEPHIN/NS 1 GM/50 ML 1 GM/50 ML BAG IV SCH (09:37)
--- NOTE | 2018-12-30 09:54 | Progress Note ---
Hospitalist Physical - Constitutional Vitals: Temp Pulse Resp BP Pulse Ox 98.4 F 104 H 18 117/82 98 12/30/18 08:31 12/30/18 09:08 12/30/18 09:01 12/30/18 08:31 12/30/18 09:01 General appearance: Present: no acute distress Results - Labs CBC & Chem 7: 12/29/18 11:19 12/29/18 11:19 Labs: Laboratory Last Values WBC 17.3 K/mm3 (4.5-11.0) H 12/29/18 11:19 RBC 3.56 M/mm3 (3.65-5.03) L 12/29/18 11:19 Hgb 9.0 gm/dl (10.1-14.3) L 12/29/18 11:19 Hct 27.9 % (30.3-42.9) L 12/29/18 11:19 MCV 78 fl (79-97) L 12/29/18 11:19 MCH 25 pg (28-32) L 12/29/18 11:19 MCHC 32 % (30-34) 12/29/18 11:19 RDW 28.5 % (13.2-15.2) H 12/29/18 11:19 Plt Count 536 K/mm3 (140-440) H 12/29/18 11:19 Lymph % (Auto) 7.7 % (13.4-35.0) L 12/20/18 04:47 [place] % (Auto) 8.3 % (0.0-7.3) H 12/20/18 04:47 Eos % (Auto) 0.0 % (0.0-4.3) 12/20/18 04:47 Baso % (Auto) 0.1 % (0.0-1.8) 12/20/18 04:47 Lymph # 1.2 K/mm3 (1.2-5.4) 12/20/18 04:47 [place] # 1.3 K/mm3 (0.0-0.8) H 12/20/18 04:47 Eos # 0.0 K/mm3 (0.0-0.4) 12/20/18 04:47 Baso # 0.0 K/mm3 (0.0-0.1) 12/20/18 04:47 Add Manual Diff Complete 12/25/18 04:26 Total Counted 100 12/25/18 04:26 Seg Neutrophils % 83.9 % (40.0-70.0) H 12/20/18 04:47 Seg Neuts % (Manual) 88.0 % (40.0-70.0) H 12/25/18 04:26 Band Neutrophils % 1.0 % 12/25/18 04:26 Lymphocytes % (Manual) 2.0 % (13.4-35.0) L 12/25/18 04:26 Reactive Lymphs % (Man) 0 % 12/25/18 04:26 Monocytes % (Manual) 7.0 % (0.0-7.3) 12/25/18 04:26 Eosinophils % (Manual) 0 % (0.0-4.3) 12/25/18 04:26 Basophils % (Manual) 1.0 % (0.0-1.8) 12/25/18 04:26 Metamyelocytes % 1.0 % 12/25/18 04:26 Myelocytes % 0 % 12/25/18 04:26 Promyelocytes % 0 % 12/25/18 04:26 Blast Cells % 0 % 12/25/18 04:26 Nucleated RBC % Not Reportable 12/25/18 04:26 Seg Neutrophils # 13.4 K/mm3 (1.8-7.7) H 12/20/18 04:47 Seg Neutrophils # Man 15.0 K/mm3 (1.8-7.7) H 12/25/18 04:26 Band Neutrophils # 0.2 K/mm3 12/25/18 04:26 Lymphocytes # (Manual) 0.3 K/mm3 (1.2-5.4) L 12/25/18 04:26 Abs React Lymphs (Man) 0.0 K/mm3 12/25/18 04:26 Monocytes # (Manual) 1.2 K/mm3 (0.0-0.8) H 12/25/18 04:26 Eosinophils # (Manual) 0.0 K/mm3 (0.0-0.4) 12/25/18 04:26 Basophils # (Manual) 0.2 K/mm3 (0.0-0.1) H 12/25/18 04:26 Metamyelocytes # 0.2 K/mm3 12/25/18 04:26 Myelocytes # 0.0 K/mm3 12/25/18 04:26 Promyelocytes # 0.0 K/mm3 12/25/18 04:26 Blast Cells # 0.0 K/mm3 12/25/18 04:26 WBC Morphology Not Reportable 12/25/18 04:26 Hypersegmented Neuts Not Reportable 12/25/18 04:26 Hyposegmented Neuts Not Reportable 12/25/18 04:26 Hypogranular Neuts Not Reportable 12/25/18 04:26 Smudge Cells Not Reportable 12/25/18 04:26 Toxic Granulation Not Reportable 12/25/18 04:26 Toxic Vacuolation Not Reportable 12/25/18 04:26 Dohle Bodies Not Reportable 12/25/18 04:26 Pelger-Huet Anomaly Not Reportable 12/25/18 04:26 Natalee Rods Not Reportable 12/25/18 04:26 Platelet Estimate Consistent w auto 12/25/18 04:26 Clumped Platelets Not Reportable 12/25/18 04:26 Plt Clumps, EDTA Not Reportable 12/25/18 04:26 Large Platelets Few 12/25/18 04:26 Giant Platelets Not Reportable 12/25/18 04:26 Platelet Satelliting Not Reportable 12/25/18 04:26 Plt Morphology Comment Not Reportable 12/25/18 04:26 RBC Morphology Not Reportable 12/25/18 04:26 Dimorphic RBCs Not Reportable 12/25/18 04:26 Polychromasia Few 12/25/18 04:26 Hypochromasia 1+ 12/25/18 04:26 Poikilocytosis Not Reportable 12/25/18 04:26 Anisocytosis 2+ 12/25/18 04:26 Microcytosis 1+ 12/25/18 04:26 Macrocytosis 1+ 12/25/18 04:26 Spherocytes Not Reportable 12/25/18 04:26 Pappenheimer Bodies Not Reportable 12/25/18 04:26 Sickle Cells Not Reportable 12/25/18 04:26 Target Cells Not Reportable 12/25/18 04:26 Tear Drop Cells Not Reportable 12/25/18 04:26 Ovalocytes Not Reportable 12/25/18 04:26 Helmet Cells Not Reportable 12/25/18 04:26 [place] Bodies Not Reportable 12/25/18 04:26 Stickney Rings Not Reportable 12/25/18 04:26 Clementina Cells Not Reportable 12/25/18 04:26 Bite Cells Not Reportable 12/25/18 04:26 Crenated Cell Not Reportable 12/25/18 04:26 Elliptocytes Not Reportable 12/25/18 04:26 Acanthocytes (Spur) Not Reportable 12/25/18 04:26 Rouleaux Not Reportable 12/25/18 04:26 Hemoglobin C Crystals Not Reportable 12/25/18 04:26 Schistocytes Not Reportable 12/25/18 04:26 Malaria parasites Not Reportable 12/25/18 04:26 Simeon Bodies Not Reportable 12/25/18 04:26 Hem Pathologist Commnt No 12/25/18 04:26 PT 13.8 Sec. (12.2-14.9) 12/17/18 08:19 INR 1.00 (0.87-1.13) 12/17/18 08:19 APTT 28.6 Sec. (24.2-36.6) 12/17/18 08:19 Sodium 139 mmol/L (137-145) 12/29/18 11:19 Potassium 3.8 mmol/L (3.6-5.0) 12/29/18 11:19 Chloride 103.1 mmol/L (98-107) 12/29/18 11:19 Carbon Dioxide 24 mmol/L (22-30) 12/29/18 11:19 Anion Gap 16 mmol/L 12/29/18 11:19 BUN 4 mg/dL (7-17) L 12/29/18 11:19 Creatinine 0.2 mg/dL (0.7-1.2) L 12/29/18 11:19 Estimated GFR > 60 ml/min 12/29/18 11:19 BUN/Creatinine Ratio 20 % 12/29/18 11:19 Glucose 138 mg/dL (65-100) H 12/29/18 11:19 POC Glucose 75 (70-105) 12/30/18 08:35 Calcium 7.1 mg/dL (8.4-10.2) L 12/29/18 11:19 Magnesium 1.40 mg/dL (1.7-2.3) L 12/24/18 04:25 Iron 12 ug/dL (37-170) L 12/17/18 09:58 TIBC 223 mcg/dL (250-450) L 12/17/18 09:58 Ferritin 120.8 ng/mL (13.0-400.0) 12/17/18 09:58 Total Bilirubin 1.70 mg/dL (0.1-1.2) H 12/23/18 04:25 AST 84 units/L (5-40) H 12/23/18 04:25 ALT 12 units/L (7-56) 12/23/18 04:25 Alkaline Phosphatase 463 units/L (35-129) H 12/23/18 04:25 Total Protein 5.1 g/dL (6.3-8.2) L 12/23/18 04:25 Albumin 1.7 g/dL (3.9-5) L 12/23/18 04:25 Albumin/Globulin Ratio 0.5 % 12/23/18 04:25 CA 125 Antigen 251 U/mL (<35) H 12/22/18 03:23 Vitamin B12 724.6 pg/mL (211-911) 12/17/18 09:58 Folate 3.99 ng/mL (7.3-26.0) L 12/20/18 04:47 RBC Folic Acid 901 ng/mL (>280) 12/17/18 09:58 Urine Color Yellow (Yellow) 12/29/18 Unknown Urine Turbidity Clear (Clear) 12/29/18 Unknown Urine pH 8.0 (5.0-7.0) H 12/29/18 Unknown Ur Specific [place] 1.009 (1.003-1.030) 12/29/18 Unknown Urine Protein <15 mg/dl mg/dL (Negative) 12/29/18 Unknown Urine Glucose (UA) Neg mg/dL (Negative) 12/29/18 Unknown Urine Ketones Neg mg/dL (Negative) 12/29/18 Unknown Urine Blood Neg (Negative) 12/29/18 Unknown Urine Nitrite Neg (Negative) 12/29/18 Unknown Urine Bilirubin Neg (Negative) 12/29/18 Unknown Urine Urobilinogen 4.0 mg/dL (<2.0) 12/29/18 Unknown Ur Leukocyte Esterase Tr (Negative) 12/29/18 Unknown Urine WBC (Auto) 4.0 /HPF (0.0-6.0) 12/29/18 Unknown Urine RBC (Auto) 29.0 /HPF (0.0-6.0) 12/29/18 Unknown U Epithel Cells (Auto) 1.0 /HPF (0-13.0) 12/29/18 Unknown Urine Bacteria (Auto) 1+ /HPF (Negative) 12/23/18 16:11 Urine Mucus Few /HPF 12/23/18 16:11 Ur Yeast w Hyphae Few /HPF 12/29/18 Unknown Urine Yeast (Budding) 3+ /HPF 12/29/18 Unknown Blood Type A POSITIVE 12/20/18 12:54 Antibody Screen Negative 12/20/18 12:54 Crossmatch See Detail 12/20/18 12:54 Active Medications - Current Medications Current Medications: Generic Name Dose Route Start Last Admin Trade Name Freq PRN Reason Stop Dose Admin Acetaminophen 650 mg 12/17/18 12:10 12/29/18 20:17 Tylenol PO 650 mg Q4H PRN Administration Pain MILD(1-3)/Fever >100.5/WHITAKER Acetaminophen/Hydrocodone Bitart 1 each 12/18/18 15:33 12/30/18 05:18 [place] 5/325 PO 1 each Q6H PRN Administration Pain, Moderate (4-6) Albuterol 2.5 mg 12/17/18 12:10 Proventil IH Q4HRT PRN Shortness Of Breath Amlodipine Besylate 10 mg 12/23/18 14:01 12/30/18 09:33 Norvasc PO 10 mg QDAY DANIELLE Administration Docusate Sodium 100 mg 12/23/18 22:00 12/30/18 09:35 Colace PO 100 mg BID DANIELLE Administration Enoxaparin Sodium 40 mg 12/19/18 10:00 12/30/18 09:34 Lovenox SUB-Q 40 mg QDAY DANIELLE Administration Ferrous Sulfate 325 mg 12/23/18 22:00 12/30/18 09:33 Feosol PO 325 mg BID DANIELLE Administration Folic Acid 1 mg 12/20/18 17:00 12/30/18 09:35 Folvite PO 1 mg QDAY DANIELLE Administration Ceftriaxone Sodium 1 gm in 50 mls @ 100 mls/hr 12/24/18 10:00 12/30/18 09:37 Rocephin/Ns 1 Gm/50 Ml IV 100 mls/hr Q24HR DANIELLE Administration Protocol Metoprolol Tartrate 25 mg 12/17/18 10:00 12/30/18 09:35 Lopressor PO 25 mg BID DANIELLE Administration Morphine Sulfate 2 mg 12/17/18 12:10 12/29/18 06:28 Morphine IV 2 mg Q4H PRN Administration Pain, Moderate (4-6) Morphine Sulfate 4 mg 12/18/18 15:33 12/29/18 13:27 Morphine IV 4 mg Q4H PRN Administration Pain , Severe (7-10) Multivitamins 1 each 12/20/18 17:00 12/30/18 09:33 Theragran Tab PO 1 each QDAY DANIELLE Administration Ondansetron HCl 4 mg 12/17/18 12:10 Zofran IV Q8H PRN Nausea And Vomiting Pantoprazole Sodium 40 mg 12/29/18 10:00 12/30/18 09:36 Protonix IV 40 mg QDAY DANIELLE Administration Sodium Chloride 10 ml 12/17/18 22:00 12/30/18 09:36 Sodium Chloride Flush Syringe 10 Ml IV 10 ml BID DANIELLE Administration Sodium Chloride 10 ml 12/17/18 12:10 Sodium Chloride Flush Syringe 10 Ml IV PRN PRN LINE FLUSH Nutrition/Malnutrition Assess - Dietary Evaluation Nutrition/Malnutrition Findings: Nutrition Notes Start: 12/18/18 11:04 Freq: Status: Active Protocol: Document 12/29/18 12:28 RM (Rec: 12/29/18 12:37 RM [id number]) Nutrition Notes Initial or Follow up Reassessment Current Diagnosis Hypertension Other Pertinent Diagnosis R & L hip surgical wounds, Bilateral femur Fx, Anemia, arthritis Current Diet Regular Labs/Tests Reviewed Pertinent Medications Reviewed Height 5 ft 4 in Weight 60.4 kg [place] Body Weight (kg) 54.54 BMI 22.8 Weight change and time frame Noted wt gain. Bedscale returned similiar wt. Unclear if wt is accurate. Subjective/Other Information Pt stated that her appetite is comes and goes. Stated that she eats bites of her meals. Noted 2 unopened Ensure Enlive at bedside. Pt stated that she did not have the chance to drink it yesterday but usually drinks it. Percent of energy/protein needs met: 33%/55%% Burn Absent Trauma Absent #1 Nutrition Diagnosis Inadequate oral intake Diagnosis Progress(for reassessment Continues documentation) Is patient on ventilator? No Is Patient Ambulatory and/or Out of Bed No REE-([facility]-confined to bed) 1372.224 Kcal/Kg value to use for calculation 35 Approximate Energy Requirements Using 2114 kcal/Kg Calculation Used for Recommendations Kcal/kg Additional Notes PRO: 1.2-1.5 g/kg ( 72-91g g/ day) Fluid: 1 mL/kcal Nutrition Intervention Change Diet Order: Continue current Add Supplement/Snack (indicate name/kcal Ensure Enlive BID /protein ) Provides kCal: 700 Provides Protein (gm) 40 Goal #1 Meet at least 75% of calorie and protein needs via PO and ONS intakes Goal #2 wt maintenance/gain Anticipated Discharge Needs: Regular Follow-Up By: 01/01/19 Additional Comments Follow for PO and ONS intakes
--- NOTE | 2018-12-30 11:12 | Hem/Onc Progress Note ---
Assessment and Plan # colon ca - based on path - with bone - liver mets - stage IV - 12/29/2018 # fracture femurs s/p sx # CT shows ovarian mass and CA 125- 251 # pt got pamidronate for the bone mets # XRT consulted # anemia - s/p iv and oral iron # low folate on replacement # History of hypertension. # History of arthritis. d/w pt reg colon being the primary OP follow up for chemo as per pt - s/w working on insurance medicaid 12/30 - d/w son leg edema adv elevation and exercise d/w dr lackey seen by surgical team for port eval pt wants to try chemo placement/ insurance being looked into CEA still not reported - Patient Problems (1) Anemia Current Visit: Yes Status: Acute Subjective Date of service: 12/30/18 Principal diagnosis: colon ca Interval history: leg edema+ seen by sx team Objective - Constitutional Vitals: Last Vital Signs Temp 98.4 F 12/30/18 08:31 Pulse 104 H 12/30/18 09:08 Resp 18 12/30/18 09:01 BP 117/82 12/30/18 08:31 Pulse Ox 98 12/30/18 09:01 Pain Intensity (0-10): denies any pain General appearance: no acute distress Performance status: 3-limited selfcare - EENT Eyes: EOM intact ENT: clear oral mucosa - Neck Neck: normal ROM - Respiratory Respiratory effort: Positive: normal Respiratory: bilateral: diminished - Cardiovascular Heart Sounds: Present: S1 & S2 Extremity abnormal: edema - Gastrointestinal General gastrointestinal: Present: soft, non-tender Rectal Exam: deferred - Genitourinary Female genitourinary: Present: deferred - Integumentary Integumentary: warm - Musculoskeletal Musculoskeletal: generalized weakness - Neurologic Neurologic: moves all extremities - Labs Lab Results: Laboratory Results - last 24 hr 12/29/18 12/29/18 12/29/18 11:19 11:19 12:02 WBC 17.3 H RBC 3.56 L Hgb 9.0 L Hct 27.9 L MCV 78 L MCH 25 L MCHC 32 RDW 28.5 H Plt Count 536 H Sodium 139 Potassium 3.8 Chloride 103.1 Carbon Dioxide 24 Anion Gap 16 BUN 4 L Creatinine 0.2 L Estimated GFR > 60 BUN/Creatinine Ratio 20 Glucose 138 H POC Glucose 119 H Calcium 7.1 L Urine Color Urine Turbidity Urine pH Ur Specific [place] Urine Protein Urine Glucose (UA) Urine Ketones Urine Blood Urine Nitrite Urine Bilirubin Urine Urobilinogen Ur Leukocyte Esterase Urine WBC (Auto) Urine RBC (Auto) U Epithel Cells (Auto) Ur Yeast w Hyphae Urine Yeast (Budding) 12/29/18 12/29/18 12/29/18 16:54 21:43 Unknown WBC RBC Hgb Hct MCV MCH MCHC RDW Plt Count Sodium Potassium Chloride Carbon Dioxide Anion Gap BUN Creatinine Estimated GFR BUN/Creatinine Ratio Glucose POC Glucose 106 H 110 H Calcium Urine Color Yellow Urine Turbidity Clear Urine pH 8.0 H Ur Specific [place] 1.009 Urine Protein <15 mg/dl Urine Glucose (UA) Neg Urine Ketones Neg Urine Blood Neg Urine Nitrite Neg Urine Bilirubin Neg Urine Urobilinogen 4.0 Ur Leukocyte Esterase Tr Urine WBC (Auto) 4.0 Urine RBC (Auto) 29.0 U Epithel Cells (Auto) 1.0 Ur Yeast w Hyphae Few Urine Yeast (Budding) 3+ 12/30/18 08:35 WBC RBC Hgb Hct MCV MCH MCHC RDW Plt Count Sodium Potassium Chloride Carbon Dioxide Anion Gap BUN Creatinine Estimated GFR BUN/Creatinine Ratio Glucose POC Glucose 75 Calcium Urine Color Urine Turbidity Urine pH Ur Specific [place] Urine Protein Urine Glucose (UA) Urine Ketones Urine Blood Urine Nitrite Urine Bilirubin Urine Urobilinogen Ur Leukocyte Esterase Urine WBC (Auto) Urine RBC (Auto) U Epithel Cells (Auto) Ur Yeast w Hyphae Urine Yeast (Budding) Medications & Allergies - Medications Allergies/Adverse Reactions: Allergies No Known Allergies Allergy (Unverified 12/17/18 07:15) Home Medications: Home Medications Medication Instructions Recorded Confirmed Last Taken Type Docusate Sodium [Colace CAP] 100 mg PO BID #60 capsule 12/30/18 Unknown Rx Ferrous Sulfate [Feosol 325 MG tab] 325 mg PO BID #60 tablet 12/30/18 Unknown Rx Folic Acid [Folvite] 1 mg PO QDAY #30 tablet 12/30/18 Unknown Rx HYDROcodone/APAP 5-325 [[place] 1 each PO Q6H PRN #14 tablet 12/30/18 Unknown Rx 5-325 mg TAB] Metoprolol [Lopressor TAB] 25 mg PO BID #60 tablet 12/30/18 Unknown Rx amLODIPine [Norvasc] 10 mg PO QDAY #30 tablet 12/30/18 Unknown Rx Active Medications: Generic Name Dose Route Start Last Admin Trade Name Freq PRN Reason Stop Dose Admin Acetaminophen 650 mg 12/17/18 12:10 12/29/18 20:17 Tylenol PO 650 mg Q4H PRN Administration Pain MILD(1-3)/Fever >100.5/WHITAKER Acetaminophen/Hydrocodone Bitart 1 each 12/18/18 15:33 12/30/18 05:18 [place] 5/325 PO 1 each Q6H PRN Administration Pain, Moderate (4-6) Albuterol 2.5 mg 12/17/18 12:10 Proventil IH Q4HRT PRN Shortness Of Breath Amlodipine Besylate 10 mg 12/23/18 14:01 12/30/18 09:33 Norvasc PO 10 mg QDAY DANIELLE Administration Docusate Sodium 100 mg 12/23/18 22:00 12/30/18 09:35 Colace PO 100 mg BID DANIELLE Administration Enoxaparin Sodium 40 mg 12/19/18 10:00 12/30/18 09:34 Lovenox SUB-Q 40 mg QDAY DANIELLE Administration Ferrous Sulfate 325 mg 12/23/18 22:00 12/30/18 09:33 Feosol PO 325 mg BID DANIELLE Administration Folic Acid 1 mg 12/20/18 17:00 12/30/18 09:35 Folvite PO 1 mg QDAY DANIELLE Administration Ceftriaxone Sodium 1 gm in 50 mls @ 100 mls/hr 12/24/18 10:00 12/30/18 09:37 Rocephin/Ns 1 Gm/50 Ml IV 100 mls/hr Q24HR DANIELLE Administration Protocol Metoprolol Tartrate 25 mg 12/17/18 10:00 12/30/18 09:35 Lopressor PO 25 mg BID DANIELLE Administration Morphine Sulfate 2 mg 12/17/18 12:10 12/29/18 06:28 Morphine IV 2 mg Q4H PRN Administration Pain, Moderate (4-6) Morphine Sulfate 4 mg 12/18/18 15:33 12/29/18 13:27 Morphine IV 4 mg Q4H PRN Administration Pain , Severe (7-10) Multivitamins 1 each 12/20/18 17:00 12/30/18 09:33 Theragran Tab PO 1 each QDAY DANIELLE Administration Ondansetron HCl 4 mg 12/17/18 12:10 Zofran IV Q8H PRN Nausea And Vomiting Pantoprazole Sodium 40 mg 12/29/18 10:00 12/30/18 09:36 Protonix IV 40 mg QDAY DANIELLE Administration Sodium Chloride 10 ml 12/17/18 22:00 12/30/18 09:36 Sodium Chloride Flush Syringe 10 Ml IV 10 ml BID DANIELLE Administration Sodium Chloride 10 ml 12/17/18 12:10 Sodium Chloride Flush Syringe 10 Ml IV PRN PRN LINE FLUSH
--- NOTE | 2018-12-30 12:46 | Discharge Summary ---
Providers - Providers Date of Admission: 12/17/18 09:54 Date of discharge: 12/30/18 Attending physician: SOLEDAD LAWRENCE 12/17/18 Consult to Case Management [CONS] Routine Services Needed at Discharge: Other Notified:: [employer] Comment:: dc planning Additional Physician Instructions: 12/17/18 08:24 Consult to Physician [CONS] Routine Comment: CONSULT COMPLETED - [place] Consulting Provider: EARL NIELSEN Physician Instructions: Reason For Exam: bilateral hip fractures 12/18/18 15:37 Physical Therapy Evaluation and Treat [CONS] Routine Comment: Reason For Exam: postoperative Evaluation Weight bearing status?: Partial wt bearing Assistive devices?: Yes If so list: Walker 12/19/18 12:48 Consult to Physician [CONS] Routine Comment: Consulting Provider: RAGHAV THORNE Physician Instructions: Reason For Exam: Mass left hip, lytic lesion,pathological fracture 12/22/18 07:57 Consult to Physician [CONS] Routine Comment: Consulting Provider: AUBREY MORFIN Physician Instructions: Reason For Exam: Poss ovarian malignancy 12/23/18 14:12 Consult to Dietitian/Nutrition [CONS] Routine Physician Instructions: Reason For Exam: Reason for Consult: Malnutrition 12/24/18 08:23 Consult to Physician [CONS] Routine Comment: Consulting Provider: JENNY HU Physician Instructions: Reason For Exam: bone mets - pain 12/29/18 08:36 Consult to Physician [CONS] Routine Comment: Consulting Provider: LUZ STRINGER Physician Instructions: Reason For Exam: port eval Hospitalization Condition: Fair Pertinent studies: Femur xry Hip xry Abdomen/pelvis CT CXR Pelvis CT Hospital course: Brief history: 63 y/o female with c/o bilateral hip pain with fall...Seen in the ED at [facility] where xrays taken show pathologic fx left hip and displaced right intertroch fracture... Further workup showed metastatic colon cancer. Status post internal fixation on 12/18/18. consulted for PORT placement for chemo outpt. Discharge prolonged due to waiting on placement, family initially wanted to rehabilitation department the have to make copayment out of pocket which later on they refused. Patient was then discharged home with home health PT along with family support. She'll follow-up outpatient with Dr. George to initiate her adenocarcinoma treatment. Discharge diagnosis and management: New metastatic adenocarcinoma, likely colon as primary -Oncology was consulted and I will caution in follow-up outpatient Bilateral femoral neck fractures, -Status post internal fixation on 12/18/18 -We'll continue home health PT Acute on chronic iron def anemia. -s/p transfusion with 1 Unit PRBC on 12/20 -H/H stable -Placed on oral iron tab Pathologic fracture with osteolytic lesions -Continued pain management Abnormal LFT -Likely secondary to metastases, monitored Hypertension -fairly controlled -Amlodipine dose increased, Hypokalemia -Resolved Leukocytosis -Probably reactive from malignancy and UTI -Treated with rocephin Severe protein caloric malnutrition - Likely from underlying malignancy -Dietitian consulted Disposition: home with HH, family refused to make copayment out of pocket Hospitalist Physical General appearance: Present: no acute distress - EENT Eyes: Present: PERRL, EOM intact ENT: hearing intact, clear oral mucosa - Neck Neck: Present: supple, normal ROM - Respiratory Respiratory effort: normal Respiratory: bilateral: CTA - Cardiovascular Rhythm: regular Heart Sounds: Present: S1 & S2 - Extremities Extremity abnormal: trace edema (in bilateral lower extremities) - Abdominal General gastrointestinal: soft, non-tender, non-distended, normal bowel sounds - Integumentary Integumentary: Present: clear, warm, dry - Neurologic Neurologic: moves all extremities Disposition: [id number] HOME UNDER HOME [facility] Time spent for discharge: 34 minutes Core Measure Documentation - Palliative Care Palliative Care/ Comfort Measures: Not Applicable - Core Measures Any of the following diagnoses?: none Exam - Constitutional Vitals: Temp Pulse Resp BP Pulse Ox 98.4 F 104 H 18 117/82 98 12/30/18 08:31 12/30/18 09:08 12/30/18 09:01 12/30/18 08:31 12/30/18 09:01 Plan Activity: up only with assistance, fall precautions Weight Bearing Status: Non-Weight Bearing Diet: regular Follow up with: [facility] [Other] - 7 Days RAGHAV THORNE MD [Staff Physician] - 7 Days Prescriptions: Docusate Sodium [Colace CAP] 100 mg PO BID #60 capsule Ferrous Sulfate [Feosol 325 MG tab] 325 mg PO BID #60 tablet Folic Acid [Folvite] 1 mg PO QDAY #30 tablet Metoprolol [Lopressor TAB] 25 mg PO BID #60 tablet HYDROcodone/APAP 5-325 [[place] 5-325 mg TAB] 1 each PO Q6H PRN #14 tablet PRN Reason: Pain, Moderate (4-6) amLODIPine [Norvasc] 10 mg PO QDAY #30 tablet
[2018-12-30 15:02] VITALS: BP 109/80
== END 2018-12-30 17:27 | disposition home health service (06) | DRG 480 ==
LOC: ED 06:52 → 3B-SURG 09:54 → 4A 12-18 16:45
PROVIDERS: ADMIT Internal Medicine; ATTEND Internal Medicine
PROC: 0QS736Z Reposition Left Upper Femur with Intramedullary Internal Fixation Device, Percutaneous Approach (ICD-10-PCS; principal; 2018-12-18)
PROC: 0QS636Z Reposition Right Upper Femur with Intramedullary Internal Fixation Device, Percutaneous Approach (ICD-10-PCS; 2018-12-18)
DX: S72.141A Displaced intertrochanteric fracture of right femur, initial encounter for closed fracture (principal); E43 Unspecified severe protein-calorie malnutrition; C19 Malignant neoplasm of rectosigmoid junction; C78.7 Secondary malignant neoplasm of liver and intrahepatic bile duct; C79.61 Secondary malignant neoplasm of right ovary; M84.452A Pathological fracture, left femur, initial encounter for fracture; C79.51 Secondary malignant neoplasm of bone; I10 Essential (primary) hypertension; M16.0 Bilateral primary osteoarthritis of hip; E87.6 Hypokalemia; D50.9 Iron deficiency anemia, unspecified; W01.0XXA Fall on same level from slipping, tripping and stumbling without subsequent striking against object, initial encounter; Y93.01 Activity, walking, marching and hiking; Y92.098 Other place in other non-institutional residence as the place of occurrence of the external cause; Y99.8 Other external cause status; Z83.3 Family history of diabetes mellitus; Z68.21 Body mass index [BMI] 21.0-21.9, adult
CPT/HCPCS: 36415; 71045; 72193; 74177; 77074; 80048; 80053; 81001; 82378; 82607; 82728; 82747; 82962; 83550; 83735; 85007; 85025; 85027; 85610; 85730; 86304; 86850; 86900; 86901; 86920; 87040; 87086; 88304; 88307; 88311; 88341; 88342; 94760; G0378; C1713; C1769; C9113; J0690; J0696; J1170; J1650; J1885; J2250; J2270; J2274; J2370; J2405; J2430; J2704; J2916; J3010; J3480; J7030; J7040; J7120; P9016; Q9967; Q9968

== ENCOUNTER 2019-02-28 21:40 | Inpatient (IN) | payer MEDICAID, OTHER ==
[2019-02-28] MEDS ORDERED: NACL 0.9% 1000 ML 1,000 ML IV ONE ×2 (21:51)
--- NOTE | 2019-02-28 21:57 | Emergency Department Report ---
HPI - General Time Seen by Provider: 02/28/19 21:44 - HPI HPI: Room 7 The patient is a 63-year-old female presenting with a chief complaint of altered mental status. Per EMS the patient has a history of stage IV colon CA and is not currently receiving treatment. Family reports the patient is normally a and O 3 until yesterday when the patient was found altered. EMS was called yesterday however the patient refused care. Today the patient had episode of emesis containing 2. Altered sodium was called again. Per EMS the patient was found to be hypotensive with systolic blood pressure in the 70s and hypoglycemic with a glucose of 40. The patient was administered oral glucose and transported to the ED. When asked if anything is bothering her the patient replies "ev erything." When asked if one thing is bothering her the most the patient states she feels sleepy Location: [See above] Duration: [See above] Quality: [See above] Severity: [See above] Modifying factors: [see above] Context: [see above] Mode of transportation: [not driving] ED Past Medical Hx - Past Medical History Hx Hypertension: Yes Hx of Cancer: Yes (colon CA, stage IV) - Surgical History Additional Surgical History: Bilateral hip replacement - Family History Family history: no significant - Social History Smoking Status: Never Smoker Substance Use Type: None - Medications Home Medications: Home Medications Medication Instructions Recorded Confirmed Last Taken Type Docusate Sodium [Colace CAP] 100 mg PO BID #60 capsule 12/30/18 Unknown Rx Ferrous Sulfate [Feosol 325 MG tab] 325 mg PO BID #60 tablet 12/30/18 Unknown Rx Folic Acid [Folvite] 1 mg PO QDAY #30 tablet 12/30/18 Unknown Rx HYDROcodone/APAP 5-325 [[place] 1 each PO Q6H PRN #14 tablet 12/30/18 Unknown Rx 5-325 mg TAB] Metoprolol [Lopressor TAB] 25 mg PO BID #60 tablet 12/30/18 Unknown Rx amLODIPine [Norvasc] 10 mg PO QDAY #30 tablet 12/30/18 Unknown Rx ED Review of Systems ROS: Stated complaint: ALTERED MENTAL STATUS, VOMITING Other details as noted in HPI Comment: Unobtainable due to pts medical conditions Physical Exam - Physical Exam Physical Exam: GENERAL: The patient is a thin cachectic elderly female lying on stretcher appearing lethargic HEENT: Normocephalic. Atraumatic. Extraocular motions are intact. NECK: Supple. Trachea midline CHEST/LUNGS: Clear to auscultation. There is no respiratory distress noted. HEART/CARDIOVASCULAR: Regular. There is no tachycardia. There is no gallop rub or murmur. ABDOMEN: Abdomen is soft, but diffusely tender to palpation. Patient has normal bowel sounds. SKIN: There is no rash. There is no edema. There is no diaphoresis. NEURO: The patient is awake but lethargic. The patient is cooperative. The patient has normal speech MUSCULOSKELETAL: There is no evidence of acute injury. - Central Line Placement Right Femoral Consent Obtained: verbal consent Time Out Performed: No Patient Placed on Monitor/Pulse Ox: Yes MD Prep: mask, gown, gloves Central Line Prep: Chlorhexidine scrub Local Anesthesia Used: Lidocaine 1% Amount of Anesthesia Used (mls): 3 Ultrasound Used for Placement: No Central Line Lumen Inserted: triple Bloods Obtained for Lab: No Central Line Position: good blood return, all ports aspirated, flus, other (Secured with adhesive) Patient Tolerated Procedure: well, no complications Complications: none ED Medical Decision Making - Lab Data Result diagrams: 02/28/19 22:05 02/28/19 22:05 Laboratory Tests 02/28/19 02/28/19 02/28/19 22:02 22:05 22:05 WBC 12.8 H RBC 4.10 Hgb 11.6 Hct 36.2 MCV 88 MCH 28 MCHC 32 RDW 21.0 H Plt Count 314 Lymph % (Auto) Shuttleless Loom Weaver Lymph # Shuttleless Loom Weaver Add Manual Diff Complete Total Counted 100 Seg Neutrophils % Shuttleless [place]oom Weaver Seg Neuts % (Manual) 85.0 H Band Neutrophils % 1.0 Lymphocytes % (Manual) 8.0 L Reactive Lymphs % (Man) 0 Monocytes % (Manual) 6.0 Eosinophils % (Manual) 0 Basophils % (Manual) 0 Metamyelocytes % 0 Myelocytes % 0 Promyelocytes % 0 Blast Cells % 0 Nucleated RBC % Not Reportable Seg Neutrophils # Man 10.9 H Band Neutrophils # 0.1 Lymphocytes # (Manual) 1.0 L Abs React Lymphs (Man) 0.0 Monocytes # (Manual) 0.8 Eosinophils # (Manual) 0.0 Basophils # (Manual) 0.0 Metamyelocytes # 0.0 Myelocytes # 0.0 Promyelocytes # 0.0 Blast Cells # 0.0 WBC Morphology Not Reportable Hypersegmented Neuts Not Reportable Hyposegmented Neuts Not Reportable Hypogranular Neuts Not Reportable Smudge Cells Not Reportable Toxic Granulation Not Reportable Toxic Vacuolation Not Reportable Dohle Bodies Not Reportable Pelger-Huet Anomaly Not Reportable Natalee Rods Not Reportable Platelet Estimate Consistent w auto Clumped Platelets Not Reportable Plt Clumps, EDTA Not Reportable Large Platelets Not Reportable Giant Platelets Not Reportable Platelet Satelliting Not Reportable Plt Morphology Comment Not Reportable RBC Morphology Not Reportable Dimorphic RBCs Not Reportable Polychromasia Not Reportable Hypochromasia Not Reportable Poikilocytosis Not Reportable Anisocytosis 1+ Microcytosis Not Reportable Macrocytosis Not Reportable Spherocytes Not Reportable Pappenheimer Bodies Not Reportable Sickle Cells Not Reportable Target Cells Not Reportable Tear Drop Cells Not Reportable Ovalocytes Not Reportable Helmet Cells Not Reportable Hazel-[place] Bodies Not Reportable Addison Rings Not Reportable [place] Cells Not Reportable Bite Cells Not Reportable Crenated Cell Not Reportable Elliptocytes Not Reportable Acanthocytes (Spur) Not Reportable Rouleaux Not Reportable Hemoglobin C Crystals Not Reportable Schistocytes Not Reportable Malaria parasites Not Reportable Simeon Bodies Not Reportable Hem Pathologist Commnt No PT 16.1 H INR 1.33 H APTT 32.9 Sodium Potassium Chloride Carbon Dioxide Anion Gap BUN Creatinine Estimated GFR BUN/Creatinine Ratio Glucose POC Glucose < 40 L Lactic Acid Calcium Total Bilirubin AST ALT Alkaline Phosphatase Ammonia Total Creatine Kinase CK-MB (CK-2) CK-MB (CK-2) Rel Index Troponin T Total Protein Albumin Albumin/Globulin Ratio Lipase TSH Free T4 Urine Color Urine Turbidity Urine pH Ur Specific [place] Urine Protein Urine Glucose (UA) Urine Ketones Urine Blood Urine Nitrite Urine Bilirubin Urine Ictotest Urine Urobilinogen Ur Leukocyte Esterase Urine WBC (Auto) Urine RBC (Auto) U Epithel Cells (Auto) Urine Bacteria (Auto) Urine WBC Clumps Urine Mucus Ur Yeast w Hyphae 02/28/19 02/28/19 02/28/19 22:05 22:05 22:05 WBC RBC Hgb Hct MCV MCH MCHC RDW Plt Count Lymph % (Auto) Lymph # Add Manual Diff Total Counted Seg Neutrophils % Seg Neuts % (Manual) Band Neutrophils % Lymphocytes % (Manual) Reactive Lymphs % (Man) Monocytes % (Manual) Eosinophils % (Manual) Basophils % (Manual) Metamyelocytes % Myelocytes % Promyelocytes % Blast Cells % Nucleated RBC % Seg Neutrophils # Man Band Neutrophils # Lymphocytes # (Manual) Abs React Lymphs (Man) Monocytes # (Manual) Eosinophils # (Manual) Basophils # (Manual) Metamyelocytes # Myelocytes # Promyelocytes # Blast Cells # WBC Morphology Hypersegmented Neuts Hyposegmented Neuts Hypogranular Neuts Smudge Cells Toxic Granulation Toxic Vacuolation Dohle Bodies Pelger-Huet Anomaly Natalee Rods Platelet Estimate Clumped Platelets Plt Clumps, EDTA Large Platelets Giant Platelets Platelet Satelliting Plt Morphology Comment RBC Morphology Dimorphic RBCs Polychromasia Hypochromasia Poikilocytosis Anisocytosis Microcytosis Macrocytosis Spherocytes Pappenheimer Bodies Sickle Cells Target Cells Tear Drop Cells Ovalocytes Helmet Cells Hazel-[place] Bodies Addison Rings [place] Cells Bite Cells Crenated Cell Elliptocytes Acanthocytes (Spur) Rouleaux Hemoglobin C Crystals Schistocytes Malaria parasites Simeon Bodies Hem Pathologist Commnt PT INR APTT Sodium 136 L Potassium 4.4 Chloride 90.5 L Carbon Dioxide 14 L Anion Gap 36 BUN 55 H Creatinine 1.0 Estimated GFR > 60 BUN/Creatinine Ratio 55 Glucose 38 L* POC Glucose Lactic Acid Calcium 8.6 Total Bilirubin 17.00 H AST 150 H ALT 32 Alkaline Phosphatase 961 H Ammonia 61.0 H Total Creatine Kinase 154 H CK-MB (CK-2) 1.4 CK-MB (CK-2) Rel Index 0.9 Troponin T 0.017 Total Protein 5.7 L Albumin 1.8 L Albumin/Globulin Ratio 0.5 Lipase 11 L TSH 1.190 Free T4 0.66 L Urine Color Urine Turbidity Urine pH Ur Specific [place] Urine Protein Urine Glucose (UA) Urine Ketones Urine Blood Urine Nitrite Urine Bilirubin Urine Ictotest Urine Urobilinogen Ur Leukocyte Esterase Urine WBC (Auto) Urine RBC (Auto) U Epithel Cells (Auto) Urine Bacteria (Auto) Urine WBC Clumps Urine Mucus Ur Yeast w Hyphae 02/28/19 02/28/19 02/28/19 22:05 23:13 23:30 WBC RBC Hgb Hct MCV MCH MCHC RDW Plt Count Lymph % (Auto) Lymph # Add Manual Diff Total Counted Seg Neutrophils % Seg Neuts % (Manual) Band Neutrophils % Lymphocytes % (Manual) Reactive Lymphs % (Man) Monocytes % (Manual) Eosinophils % (Manual) Basophils % (Manual) Metamyelocytes % Myelocytes % Promyelocytes % Blast Cells % Nucleated RBC % Seg Neutrophils # Man Band Neutrophils # Lymphocytes # (Manual) Abs React Lymphs (Man) Monocytes # (Manual) Eosinophils # (Manual) Basophils # (Manual) Metamyelocytes # Myelocytes # Promyelocytes # Blast Cells # WBC Morphology Hypersegmented Neuts Hyposegmented Neuts Hypogranular Neuts Smudge Cells Toxic Granulation Toxic Vacuolation Dohle Bodies Pelger-Huet Anomaly Natalee Rods Platelet Estimate Clumped Platelets Plt Clumps, EDTA Large Platelets Giant Platelets Platelet Satelliting Plt Morphology Comment RBC Morphology Dimorphic RBCs Polychromasia Hypochromasia Poikilocytosis Anisocytosis Microcytosis Macrocytosis Spherocytes Pappenheimer Bodies Sickle Cells Target Cells Tear Drop Cells Ovalocytes Helmet Cells Hazel-[place] Bodies Addison Rings [place] Cells Bite Cells Crenated Cell Elliptocytes Acanthocytes (Spur) Rouleaux Hemoglobin C Crystals Schistocytes Malaria parasites Simeon Bodies Hem Pathologist Commnt PT INR APTT Sodium Potassium Chloride Carbon Dioxide Anion Gap BUN Creatinine Estimated GFR BUN/Creatinine Ratio Glucose POC Glucose 48 L Lactic Acid 4.50 H* Calcium Total Bilirubin AST ALT Alkaline Phosphatase Ammonia Total Creatine Kinase CK-MB (CK-2) CK-MB (CK-2) Rel Index Troponin T Total Protein Albumin Albumin/Globulin Ratio Lipase TSH Free T4 Urine Color Juju Urine Turbidity Cloudy Urine pH 5.0 Ur Specific [place] 1.016 Urine Protein <15 mg/dl Urine Glucose (UA) Neg Urine Ketones Tr Urine Blood Mod Urine Nitrite Neg Urine Bilirubin Mod Urine Ictotest Positive Urine Urobilinogen 4.0 Ur Leukocyte Esterase Tr Urine WBC (Auto) 119.0 H Urine RBC (Auto) 168.0 U Epithel Cells (Auto) 23.0 H Urine Bacteria (Auto) 4+ Urine WBC Clumps 3+ Urine Mucus 3+ Ur Yeast w Hyphae Few 03/01/19 00:26 WBC RBC Hgb Hct MCV MCH MCHC RDW Plt Count Lymph % (Auto) Lymph # Add Manual Diff Total Counted Seg Neutrophils % Seg Neuts % (Manual) Band Neutrophils % Lymphocytes % (Manual) Reactive Lymphs % (Man) Monocytes % (Manual) Eosinophils % (Manual) Basophils % (Manual) Metamyelocytes % Myelocytes % Promyelocytes % Blast Cells % Nucleated RBC % Seg Neutrophils # Man Band Neutrophils # Lymphocytes # (Manual) Abs React Lymphs (Man) Monocytes # (Manual) Eosinophils # (Manual) Basophils # (Manual) Metamyelocytes # Myelocytes # Promyelocytes # Blast Cells # WBC Morphology Hypersegmented Neuts Hyposegmented Neuts Hypogranular Neuts Smudge Cells Toxic Granulation Toxic Vacuolation Dohle Bodies Pelger-Huet Anomaly Natalee Rods Platelet Estimate Clumped Platelets Plt Clumps, EDTA Large Platelets Giant Platelets Platelet Satelliting Plt Morphology Comment RBC Morphology Dimorphic RBCs Polychromasia Hypochromasia Poikilocytosis Anisocytosis Microcytosis Macrocytosis Spherocytes Pappenheimer Bodies Sickle Cells Target Cells Tear Drop Cells Ovalocytes Helmet Cells Hazel-[place] Bodies Addison Rings [place] Cells Bite Cells Crenated Cell Elliptocytes Acanthocytes (Spur) Rouleaux Hemoglobin C Crystals Schistocytes Malaria parasites Simeon Bodies Hem Pathologist Commnt PT INR APTT Sodium Potassium Chloride Carbon Dioxide Anion Gap BUN Creatinine Estimated GFR BUN/Creatinine Ratio Glucose POC Glucose 160 H Lactic Acid Calcium Total Bilirubin AST ALT Alkaline Phosphatase Ammonia Total Creatine Kinase CK-MB (CK-2) CK-MB (CK-2) Rel Index Troponin T Total Protein Albumin Albumin/Globulin Ratio Lipase TSH Free T4 Urine Color Urine Turbidity Urine pH Ur Specific [place] Urine Protein Urine Glucose (UA) Urine Ketones Urine Blood Urine Nitrite Urine Bilirubin Urine Ictotest Urine Urobilinogen Ur Leukocyte Esterase Urine WBC (Auto) Urine RBC (Auto) U Epithel Cells (Auto) Urine Bacteria (Auto) Urine WBC Clumps Urine Mucus Ur Yeast w Hyphae - EKG Data -: EKG Interpreted by Me EKG shows normal: sinus rhythm Rate: normal - EKG Data When compared to previous EKG there are: previous EKG unavailable Interpretation: other (QT prolongation) - Radiology Data Radiology results: report reviewed (CT head, CT abdomen and pelvis), image reviewed (CT head, CT abdomen and pelvis) [facility] [address] [place] [address] Cat Scan Report Signed Patient: TIESHA BURNETTE MR#: [id number] : 1955 Acct:[id number] Age/Sex: 63 / F ADM Date: 02/28/19 Loc: ED Attending Dr: Ordering Physician: KINJAL SEGOVIA MD Date of Service: 02/28/19 Procedure(s): CT abdomen pelvis w con Accession Number(s): [id number] cc: KINJAL SEGOVIA MD PROCEDURE: CT ABDOMEN PELVIS W CON TECHNIQUE: Computerized axial tomography of the abdomen and pelvis was performed after the administration of IV iodinated nonionic contrast. CT DOSE LENGTH PRODUCT: 796.4 mGycm HISTORY: increased abdominal girth, h/o colon CA COMPARISONS: None . FINDINGS: Visualized lower thorax: There is moderate atelectasis and effusion right lower lung. Liver: There are numerous areas of hypoattenuation throughout the liver, this is consistent with metastatic change. Spleen: There are areas of hypoattenuation within the spleen. Small cysts are possible.. Gallbladder and biliary system: There are some stones identified within the gallbladder lumen. Pancreas: Normal. Adrenals: Normal. Kidneys: Normal. GI tract: There is significant ascites throughout the abdomen. There is a moderate-sized ventral hernia. No evidence of obstruction. Moderate diverticular change in the distal colon. The appendix is not visualized.. Lymph nodes and mesentery: Normal. Vasculature: Moderate atherosclerosis of aorta. Bladder: Normal. Reproductive organs: No pelvic masses. Peritoneum: There is significant ascites throughout the abdomen and pelvis. Musculoskeletal structures: No significant abnormality. Other: None. IMPRESSION: There is significant ascites throughout the abdomen and pelvis. There is metastatic change throughout the liver. There is no evidence of intestinal or urinary tract obstruction. Cholelithiasis. There is atelectasis and moderate effusion in the right lower lung.. This document is electronically signed by Sari Gallagher DO., March 01 2019 12:25:43 AM ET Transcribed By: [facility] Dictated By: SARI GALLAGHER MD Electronically Authenticated By: SARI GALLAGHER MD Signed Date/Time: 03/01/1926 DD/ TD/TT: 03/01/1910 [facility] [address] [place] [address] Cat Scan Report Signed Patient: TIESHA BURNETTE MR#: [id number] : 1955 Acct:[id number] Age/Sex: 63 / F ADM Date: 02/28/19 Loc: ED Attending Dr: Ordering Physician: KINJAL SEGOVIA MD Date of Service: 02/28/19 Procedure(s): CT head/brain wo con Accession Number(s): [id number] cc: KINJAL SEGOVIA MD PROCEDURE: CT HEAD/BRAIN WO CON TECHNIQUE: Computerized tomography of the head was performed without contrast material. CT DOSE LENGTH PRODUCT: 805.4 mGycm HISTORY: altered mental status, h/o colon CA COMPARISONS: None . FINDINGS: Skull and scalp: Normal . Paranasal sinuses: Normal . Ventricles and subarachnoid spaces: Normal . Cerebrum: No evidence of hemorrhage, acute infarction or mass . Cerebellum and brainstem: No evidence of hemorrhage, acute infarction or mass . Vasculature: Normal . Other: None . ASPECTS: 10 IMPRESSION: Mild to moderate atrophy. No evidence of acute stroke or hemorrhage. . This document is electronically signed by Earl Ferrara MD., March 01 2019 12:14:03 AM ET Transcribed By: RB Dictated By: EARL FERRARA MD Electronically Authenticated By: EARL FERRARA MD Signed Date/Time: 03/01/1915 DD/ TD/TT: 03/01/1910 - Differential Diagnosis brain metastases, hepatic encephalopathy, sepsis Critical care attestation.: If time is entered above; I have spent that time in minutes in the direct care of this critically ill patient, excluding procedure time. ED Disposition Clinical Impression: Sepsis, UTI (urinary tract infection), Hepatic encephalopathy, Hypoglycemia Disposition: 09 OP ADMIT IP TO THIS HOSP Is pt being admited?: Yes Does the pt Need Aspirin: No Condition: Serious Time of Disposition: 01:08 (hospitalist paged (Dr Hall))
[2019-02-28] MEDS ORDERED: D50W (25GM) Syringe IV ONE ×4 (22:00→23:13)
[2019-02-28 22:31] LABS: INR 1.33 (0.87-1.13)
[2019-02-28 22:32] LABS: Partial Thromboplastin Time 32.9 Sec. (24.2-36.6)
[2019-02-28 22:33] LABS: Hematocrit 36.2 % (30.3-42.9); Hemoglobin 11.6 gm/dl (10.1-14.3); Mean Corpuscular HGB Conc 32 % (30-34); Mean Corpuscular Volume 88 fl (79-97); Platelet Count 314 K/mm3 (140-440)
[2019-02-28 22:38] LABS: Creatine Kinase MB 1.4 ng/mL (0.0-4.0)
[2019-02-28 22:41] LABS: Alanine Aminotransferase 32 units/L (7-56); Albumin 1.8 g/dL (3.9-5); BUN/Creatinine Ratio 55; Blood Urea Nitrogen 55 mg/dL (7-17); Calcium 8.6 mg/dL (8.4-10.2); Hemolysis Index 6
[2019-02-28 22:48] LABS: Free T4 (Free Thyroxine) 0.66 ng/dL (0.76-1.46)
[2019-02-28] MEDS: ZOFRAN IV PRN (23:00)
[2019-02-28] MEDS ORDERED: CEPHULAC PO ONE (23:00)
[2019-02-28 23:50] LABS: Band Neutrophils # (Manual) 0.1 K/mm3; Basophils % (Manual) 0 % (0.0-1.8); Eosinophils % (Manual) 0 % (0.0-4.3); Total Cells Counted 100
[2019-02-28 23:51] LABS: Anisocytosis 1+; Platelet Estimate Consistent w Auto
--- NOTE | 2019-03-01 00:16 | Cat Scan Report ---
PROCEDURE: CT HEAD/BRAIN WO CON TECHNIQUE: Computerized tomography of the head was performed without contrast material. CT DOSE LENGTH PRODUCT: 805.4 mGycm HISTORY: altered mental status, h/o colon CA COMPARISONS: None . FINDINGS: Skull and scalp: Normal . Paranasal sinuses: Normal . Ventricles and subarachnoid spaces: Normal . Cerebrum: No evidence of hemorrhage, acute infarction or mass . Cerebellum and brainstem: No evidence of hemorrhage, acute infarction or mass . Vasculature: Normal . Other: None . ASPECTS: 10 IMPRESSION: Mild to moderate atrophy. No evidence of acute stroke or hemorrhage. . This document is electronically signed by Johnny Ferrara MD., March 01 2019 12:14:03 AM ET
[2019-03-01 00:17] LABS: Bacteria,Urine 4+ /HPF (Negative); Bilirubin,Urine MOD (Negative); Blood,Urine MOD (Negative); Color,Urine Amber (Yellow); Mucus,Urine 3+ /HPF; Protein,Urine <15 mg/dL mg/dL (Negative)
[2019-03-01] MEDS ORDERED: LEVOPHED DRIP 4 MG/NS 250 ML 4 MG/250 ML BAG IV ONE ×3 (00:21→08:45)
[2019-03-01] MEDS ORDERED: ROCEPHIN/NS 1 GM/50 ML 1 GM/50 ML BAG IV SCH (00:23)
[2019-03-01 00:24] LABS: Ictotest,Urine Positive (Negative)
--- NOTE | 2019-03-01 00:27 | Cat Scan Report ---
PROCEDURE: CT ABDOMEN PELVIS W CON TECHNIQUE: Computerized axial tomography of the abdomen and pelvis was performed after the administr ation of IV iodinated nonionic contrast. CT DOSE LENGTH PRODUCT: 796.4 mGycm HISTORY: increased abdominal girth, h/o colon CA COMPARISONS: None . FINDINGS: Visualized lower thorax: There is moderate atelectasis and effusion right lower lung. Liver: There are numerous areas of hypoattenuation throughout the liver, this is consistent with meta static change. Spleen: There are areas of hypoattenuation within the spleen. Small cysts are possible.. Gallbladder and biliary system: There are some stones identified within the gallbladder lumen. Pancreas: Normal. Adrenals: Normal. Kidneys: Normal. GI tract: There is significant ascites throughout the abdomen. There is a moderate-sized ventral her rajesh. No evidence of obstruction. Moderate diverticular change in the distal colon. The appendix is no t visualized.. Lymph nodes and mesentery: Normal. Vasculature: Moderate atherosclerosis of aorta. Bladder: Normal. Reproductive organs: No pelvic masses. Peritoneum: There is significant ascites throughout the abdomen and pelvis. Musculoskeletal structures: No significant abnormality. Other: None. IMPRESSION: There is significant ascites throughout the abdomen and pelvis. There is metastatic change throughout the liver. There is no evidence of intestinal or urinary tract obstruction. Cholelithiasis. There is atelectasis and moderate effusion in the right lower lung.. This document is electronically signed by Sari Gallagher DO., March 01 2019 12:25:43 AM ET
[2019-03-01] MEDS ORDERED: ZOFRAN ONE ×2 (00:53→08:40)
[2019-03-01] MEDS ORDERED: TYLENOL PO PRN (01:43)
[2019-03-01] MEDS ORDERED: SODIUM CHLORIDE FLUSH SYRINGE 10 ML IV PRN (01:43)
[2019-03-01] MEDS ORDERED: CEPHULAC ONE ×2 (01:49→08:27)
[2019-03-01] MEDS ORDERED: D50W (25GM) Syringe IV PRN (01:51)
[2019-03-01] MEDS: ZOFRAN IV PRN (02:00)
[2019-03-01] MEDS ORDERED: D5NS 1,000 ML IV SCH (02:00)
--- NOTE | 2019-03-01 02:43 | History and Physical Report ---
History of Present Illness Date of examination: 03/01/19 Chief complaint: Abdominal distention per family members History of present illness: Patient is a 63-year-old -Citizen Of The [place] female with recent history of stage IV colon cancer who was brought to the ED via EMS with complaint of 2-3 weeks history of worsening abdominal distention. Of note, patient was a poor historian, so history was obtained from family members who were at the bedside. She has associated generalized abdominal pain, shortness of breath, nausea with vomiting times multiple episodes, headaches, dry cough and poor oral intake. They also reported some confusion. Per EMS, the patient was found to be hypotensive with systolic blood pressure in the 70s and hypoglycemic with blood glucose of 40. The patient was administered dextrose and transported to the ED. on arrival to the ED, high blood glucose was noted to be low at 38 for which she received multiple IV dextrose. Of note, per family members, patient has not been able to start chemotherapy because the process required for her medical insurance coverage is still pending. Past History Past Medical History: hypertension, other (stage IV colon cancer) Past Surgical History: total hip replacement (bilateral) Social history: no significant social history (no reported history of tobacco, alcohol or illicit drug use) Family history: other (no known family history of cancer per patient's sons) Medications and Allergies Allergies Allergy/AdvReac Type Severity Reaction Status Date / Time No Known Allergies Allergy Unverified 12/17/18 07:15 Home Medications Medication Instructions Recorded Confirmed Last Taken Type Docusate Sodium [Colace CAP] 100 mg PO BID #60 capsule 12/30/18 Unknown Rx Ferrous Sulfate [Feosol 325 MG tab] 325 mg PO BID #60 tablet 12/30/18 Unknown Rx Folic Acid [Folvite] 1 mg PO QDAY #30 tablet 12/30/18 Unknown Rx HYDROcodone/APAP 5-325 [Shohola 1 each PO Q6H PRN #14 tablet 12/30/18 Unknown Rx 5-325 mg TAB] Metoprolol [Lopressor TAB] 25 mg PO BID #60 tablet 12/30/18 Unknown Rx amLODIPine [Norvasc] 10 mg PO QDAY #30 tablet 12/30/18 Unknown Rx Active Meds: Active Medications Acetaminophen (Tylenol) 650 mg PO Q4H PRN PRN Reason: Pain MILD(1-3)/Fever >100.5/WHITAKER Dextrose (D50w (25gm) Syringe) 50 ml IV PRN PRN PRN Reason: Hypoglycemia Heparin Sodium (Porcine) (Heparin) 5,000 unit SUB-Q Q12HR DANIELLE Norepinephrine (Levophed Drip 4 Mg/Ns 250 Ml) 4 mg in 250 mls @ 7.5 mls/hr IV TITR ONE; Protocol Stop: 03/02/19 09:40 Last Titration: 03/01/19 01:34 Dose: 4 mcg/min, 15 mls/hr Documented by: Ceftriaxone Sodium (Rocephin/Ns 1 Gm/50 Ml) 1 gm in 50 mls @ 100 mls/hr IV Q24HR@2200 DANIELLE; Protocol Stop: 03/02/19 22:29 Last Admin: 03/01/19 00:25 Dose: 100 mls/hr Documented by: Dextrose/Sodium Chloride (D5ns) 1,000 mls @ 42 mls/hr IV DIRECT DANIELLE Lactulose (Cephulac) 20 gm PO TID DANIELLE Ondansetron HCl (Zofran) 4 mg IV Q8H PRN PRN Reason: Nausea And Vomiting Sodium Chloride (Sodium Chloride Flush Syringe 10 Ml) 10 ml IV BID DANIELLE Sodium Chloride (Sodium Chloride Flush Syringe 10 Ml) 10 ml IV PRN PRN PRN Reason: LINE FLUSH Review of Systems ROS unobtainable: due to mental status Exam - Constitutional Vitals: Temp Pulse Resp BP Pulse Ox 88 12 97/72 95 03/01/19 02:16 03/01/19 02:16 03/01/19 02:16 03/01/19 02:16 General appearance: Present: mild distress, cachectic - EENT Eyes: Present: PERRL, EOM intact ENT: hearing intact, clear oral mucosa - Neck Neck: Present: supple, normal ROM - Respiratory Respiratory effort: labored Respiratory: right: rales, bilateral: diminished - Cardiovascular Rhythm: regular Heart Sounds: Present: S1 & S2 - Extremities Extremities: pulses symmetrical, No edema - Abdominal General gastrointestinal: Present: soft, tender (generalized), distended (with ascites), normal bowel sounds Female genitourinary: Present: deferred - Integumentary Integumentary: Present: clear, warm, dry - Musculoskeletal Musculoskeletal: generalized weakness - Psychiatric Psychiatric: cooperative - Neurologic Neurologic: moves all extremities Results - Labs CBC & Chem 7: 06/22/19 22:05 02/28/19 22:05 Labs: Laboratory Last Values WBC 12.8 K/mm3 (4.5-11.0) H 02/28/19 22:05 RBC 4.10 M/mm3 (3.65-5.03) 02/28/19 22:05 Hgb 11.6 gm/dl (10.1-14.3) 02/28/19 22:05 Hct 36.2 % (30.3-42.9) 02/28/19 22:05 MCV 88 fl (79-97) 02/28/19 22:05 MCH 28 pg (28-32) 02/28/19 22:05 MCHC 32 % (30-34) 02/28/19 22:05 RDW 21.0 % (13.2-15.2) H 02/28/19 22:05 Plt Count 314 K/mm3 (140-440) 02/28/19 22:05 Lymph % (Auto) Visual Communications Instructor 02/28/19 22:05 Lymph # Visual Communications Instructor 02/28/19 22:05 Add Manual Diff Complete 02/28/19 22:05 Total Counted 100 02/28/19 22:05 Seg Neutrophils % Visual Communications Instructor 02/28/19 22:05 Seg Neuts % (Manual) 85.0 % (40.0-70.0) H 02/28/19 22:05 1.0 % 02/28/19 22:05 8.0 % (13.4-35.0) L 02/28/19 22:05 Reactive Lymphs % (Man) 0 % 02/28/19 22:05 6.0 % (0.0-7.3) 02/28/19 22:05 0 % (0.0-4.3) 02/28/19 22:05 0 % (0.0-1.8) 02/28/19 22:05 0 % 02/28/19 22:05 0 % 02/28/19 22:05 0 % 02/28/19 22:05 0 % 02/28/19 22:05 Nucleated RBC % Not Reportable 02/28/19 22:05 Seg Neutrophils # Man 10.9 K/mm3 (1.8-7.7) H 02/28/19 22:05 Band Neutrophils # 0.1 K/mm3 02/28/19 22:05 1.0 K/mm3 (1.2-5.4) L 02/28/19 22:05 Abs React Lymphs (Man) 0.0 K/mm3 02/28/19 22:05 0.8 K/mm3 (0.0-0.8) 02/28/19 22:05 0.0 K/mm3 (0.0-0.4) 02/28/19 22:05 0.0 K/mm3 (0.0-0.1) 02/28/19 22:05 0.0 K/mm3 02/28/19 22:05 0.0 K/mm3 02/28/19 22:05 0.0 K/mm3 02/28/19 22:05 Blast Cells # 0.0 K/mm3 02/28/19 22:05 WBC Morphology Not Reportable 02/28/19 22:05 WBC Morphology TNR 02/28/19 22:05 Hypersegmented Neuts Not Reportable 02/28/19 22:05 Hyposegmented Neuts Not Reportable 02/28/19 22:05 Hypogranular Neuts Not Reportable 02/28/19 22:05 Not Reportable 02/28/19 22:05 Not Reportable 02/28/19 22:05 Not Reportable 02/28/19 22:05 Not Reportable 02/28/19 22:05 Not Reportable 02/28/19 22:05 Not Reportable 02/28/19 22:05 Consistent w auto 02/28/19 22:05 Not Reportable 02/28/19 22:05 Plt Clumps, EDTA Not Reportable 02/28/19 22:05 Not Reportable 02/28/19 22:05 Not Reportable 02/28/19 22:05 Not Reportable 02/28/19 22:05 Plt Morphology Comment Not Reportable 02/28/19 22:05 RBC Morphology Not Reportable 02/28/19 22:05 Dimorphic RBCs Not Reportable 02/28/19 22:05 Not Reportable 02/28/19 22:05 Not Reportable 02/28/19 22:05 Not Reportable 02/28/19 22:05 1+ 02/28/19 22:05 Not Reportable 02/28/19 22:05 Not Reportable 02/28/19 22:05 Not Reportable 02/28/19 22:05 Not Reportable 02/28/19 22:05 Not Reportable 02/28/19 22:05 Not Reportable 02/28/19 22:05 Not Reportable 02/28/19 22:05 Not Reportable 02/28/19 22:05 Not Reportable 02/28/19 22:05 Not Reportable 02/28/19 22:05 Not Reportable 02/28/19 22:05 Not Reportable 02/28/19 22:05 Not Reportable 02/28/19 22:05 Not Reportable 02/28/19 22:05 Not Reportable 02/28/19 22:05 Acanthocytes (Spur) Not Reportable 02/28/19 22:05 Rouleaux Not Reportable 02/28/19 22:05 Not Reportable 02/28/19 22:05 Not Reportable 02/28/19 22:05 Not Reportable 02/28/19 22:05 Not Reportable 02/28/19 22:05 Hem Pathologist Commnt No 02/28/19 22:05 PT 16.1 Sec. (12.2-14.9) H 02/28/19 22:05 INR 1.33 (0.87-1.13) H 02/28/19 22:05 APTT 32.9 Sec. (24.2-36.6) 02/28/19 22:05 Sodium 136 mmol/L (137-145) L 02/28/19 22:05 Potassium 4.4 mmol/L (3.6-5.0) 02/28/19 22:05 Chloride 90.5 mmol/L (98-107) L 02/28/19 22:05 Carbon Dioxide 14 mmol/L (22-30) L 02/28/19 22:05 36 mmol/L 02/28/19 22:05 BUN 55 mg/dL (7-17) H 02/28/19 22:05 1.0 mg/dL (0.7-1.2) 02/28/19 22:05 Estimated GFR > 60 ml/min 02/28/19 22:05 55 % 02/28/19 22:05 Glucose 38 mg/dL (65-100) L* 02/28/19 22:05 POC Glucose 160 (70-105) H 03/01/19 00:26 Lactic Acid 4.50 mmol/L (0.7-2.0) H* 02/28/19 22:05 Calcium 8.6 mg/dL (8.4-10.2) 02/28/19 22:05 17.00 mg/dL (0.1-1.2) H 02/28/19 22:05 AST 150 units/L (5-40) H 02/28/19 22:05 ALT 32 units/L (7-56) 02/28/19 22:05 961 units/L (35-129) H 02/28/19 22:05 61.0 umol/L (25-60) H 02/28/19 22:05 154 units/L (30-135) H 02/28/19 22:05 CK-MB (CK-2) 1.4 ng/mL (0.0-4.0) 02/28/19 22:05 CK-MB (CK-2) Rel Index 0.9 (0-4) 02/28/19 22:05 0.017 ng/mL (0.00-0.029) 02/28/19 22:05 5.7 g/dL (6.3-8.2) L 02/28/19 22:05 1.8 g/dL (3.9-5) L 02/28/19 22:05 0.5 % 02/28/19 22:05 11 units/L (13-60) L 02/28/19 22:05 TSH 1.190 mlU/mL (0.270-4.200) 02/28/19 22:05 Free T4 0.66 ng/dL (0.76-1.46) L 02/28/19 22:05 Juju (Yellow) 02/28/19 23:30 Cloudy (Clear) 02/28/19 23:30 5.0 (5.0-7.0) 02/28/19 23:30 Ur Specific [place] 1.016 (1.003-1.030) 02/28/19 23:30 <15 mg/dl mg/dL (Negative) 02/28/19 23:30 Neg mg/dL (Negative) 02/28/19 23:30 Tr mg/dL (Negative) 02/28/19 23:30 Mod (Negative) 06/22/19 23:30 Neg (Negative) 02/28/19 23:30 Mod (Negative) 02/28/19 23:30 Positive (Negative) 02/28/19 23: 4.0 mg/dL (<2.0) 02/28/19 23:30 Ur Leukocyte Esterase Tr (Negative) 02/28/19 23:30 119.0 /HPF (0.0-6.0) H 02/28/19 23:30 168.0 /HPF (0.0-6.0) 02/28/19 23:30 U Epithel Cells (Auto) 23.0 /HPF (0-13.0) H 02/28/19 23: 4+ /HPF (Negative) 02/28/19: 3+ /HPF 02/28/19: 3+ /HPF 02/28/19 23:30 Ur Yeast w Hyphae Few /HPF 02/28/19 23:30 Assessment and Plan Assessment and plan: Septic shock -Probably secondary to UTI -On sepsis protocol with IV Rocephin and IV Levophed -Blood and urine cultures pending Acute respiratory failure with hypoxia -Continue oxygen supplementation as needed Acute hepatic encephalopathy -On lactulose -Head CT scan negative for acute findings Hypoglycemia -On hypoglycemic protocol Severe ascites -IR consulted for therapeutic paracentesis Metabolic acidosis -On IV fluid, will monitor bicarbonate level Intractable nausea and vomiting -Nothing by mouth for bowel rest -On antiemetics and IV fluid History of Stage IV colon cancer -Oncology consulted in the ED -Prognosis is very poor Abnormal LFT -Likely due to liver metastasis Anemia of chronic disease -H/H stable, will monitor levels Severe protein calorie malnutrition -Dietitian consulted DVT prophylaxis with heparin Disposition: I spent 45 minutes providing critical care to this seriously ill patient who requires frequent reassessments of her cardiovascular, respiratory and neurological status. Patient's condition is guarded and her overall prognosis is very poor, however her sons wants her code status to be full code.
[2019-03-01] MEDS ORDERED: CEPHULAC PO SCH (08:00)
--- NOTE | 2019-03-01 08:04 | Event Note ---
Date: 03/01/19 Patient admitted today. Seen and examined Will continue with present management plan
[2019-03-01 08:54] LABS: Hematocrit 33.2 % (30.3-42.9); Hemoglobin 10.3 gm/dl (10.1-14.3); Mean Corpuscular HGB Conc 31 % (30-34); Mean Corpuscular Volume 91 fl (79-97); Platelet Count 258 K/mm3 (140-440); Red Blood Count 3.67 M/mm3 (3.65-5.03)
[2019-03-01 09:01] LABS: BUN/Creatinine Ratio 51; Blood Urea Nitrogen 51 mg/dL (7-17); Calcium 8.3 mg/dL (8.4-10.2); Hemolysis Index 1
[2019-03-01 09:02] LABS: Red Cell Distribution Width 21.1 % (13.2-15.2)
[2019-03-01] MEDS ORDERED: PROTONIX IV SCH (10:00)
[2019-03-01] MEDS ORDERED: HEPARIN SUB-Q SCH (10:00)
[2019-03-01] MEDS ORDERED: SODIUM CHLORIDE FLUSH SYRINGE 10 ML IV SCH (10:00)
[2019-03-01 10:15] VITALS: BP 78/44
--- NOTE | 2019-03-01 11:18 | Event Note ---
Date: 03/01/19 Order noted for paracentesis. Patient has large volume ascites. The patient also has diffusely metastatic colon cancer and is currently hypotensive and bradycardic. The family has consented to allow natural per ER physician's. At this time, would not consider any intervention given the patient's clinical condition.
[2019-03-01 18:09] LABS: Anisocytosis 1+; Band Neutrophils # (Manual) 1.9 K/mm3; Basophils % (Manual) 0 % (0.0-1.8); Eosinophils % (Manual) 0 % (0.0-4.3); Total Cells Counted 100
[2019-03-01 18:10] LABS: Platelet Estimate Consistent w Auto
--- NOTE | 2019-03-08 15:51 | Discharge Summary ---
DATE OF : 03/01/2019 ADMITTING DIAGNOSES: 1. Metastatic colon cancer with hepatic involvement. 2. Acute hepatic encephalopathy. 3. Septic shock from urinary tract infection. 4. Acute respiratory failure. 5. Gross ascites from metastatic colon cancer. 6. Intractable nausea and vomiting. 7. Abnormal liver function test. 8. Anemia of chronic disease. 9. Severe protein-calorie malnutrition. HOSPITAL COURSE: The patient is a 63-year-old lady who has stage IV colon cancer with mets to the liver who was admitted to the Emergency Department for 2-3 weeks of worsening abdominal distention. The patient has been diagnosed with colon cancer with metastasis of the liver. Gross ascited. Saw her oncologist not too long ago and was on chemotherapy. On admission to the Emergency Department, the patient was found to be severely emaciated, had conjunctival jaundice, hypertensive with acute respiratory failure, was placed on oxygen. IV hydration. Barrel Lapper was consulted for abdominal paracentesis because of the gross ascites. Had hypoglycemia. Had metabolic acidosis. Was continued with iv hydration supportive care. Discussed this with the family who said that the patient should be a DNR. Shortly thereafter the patient went into respiratory distress. Comfort measures were initiated. Thereafter, there was cessation of cardiac and respiratory activity. The patient was certified . DIAGNOSES AT THE TIME OF : 1. Metastatic colon cancer with hepatic involvement. 2. Hepatic encephalopathy. 3. Acute respiratory failure. 4. Septic shock from urinary tract infection. 5. Protein-calorie malnutrition, stage 3. 6. Anemia of chronic disease. JOB# [id number] OO/NTS MTDD
== END 2019-03-01 11:42 | DRG 871 ==
LOC: ED 21:40 → CC1 03-01 04:05
PROVIDERS: ADMIT Internal Medicine; ATTEND Family Medicine
PROC: 06HY33Z Insertion of Infusion Device into Lower Vein, Percutaneous Approach (ICD-10-PCS; principal; 2019-03-01)
DX: A41.9 Sepsis, unspecified organism (principal); R65.21 Severe sepsis with septic shock; J96.01 Acute respiratory failure with hypoxia; E43 Unspecified severe protein-calorie malnutrition; N39.0 Urinary tract infection, site not specified; R18.8 Other ascites; E87.2 Acidosis; C18.9 Malignant neoplasm of colon, unspecified; Z68.1 Body mass index [BMI] 19.9 or less, adult; E16.2 Hypoglycemia, unspecified; Z96.643 Presence of artificial hip joint, bilateral; K72.90 Hepatic failure, unspecified without coma; R94.5 Abnormal results of liver function studies; D63.8 Anemia in other chronic diseases classified elsewhere; Z66 Do not resuscitate; Z51.5 Encounter for palliative care
CPT/HCPCS: 36415; 70450; 74177; 80048; 80053; 81001; 82140; 82550; 82553; 82962; 83690; 84439; 84443; 84484; 85007; 85025; 85610; 85730; 87040; 87086; 93005; 93010; G0378; J0696; J2405; J7030; J7042; Q9967